=== PATIENT | male | born 1940 | race Caucasian/White ===

== ENCOUNTER → 2017-01-06 | Outpatient (CLI) | payer OTHER ==
[2016-02-10 11:28] VITALS: BP 158/69
[2017-01-06 10:25] LABS: BASOPHILS # (AUTO) 0.1 X10^3/uL (0.0-0.1); BASOPHILS % (AUTO) 0.9 % (0.2-1.0); EOSINOPHILS # (AUTO) 0.1 x10^3/uL (0.0-0.2); EOSINOPHILS % (AUTO) 1.1 % (0.9-2.9); LYMPHOCYTES # (AUTO) 1.9 X10^3/uL (1.3-2.9); MEAN CORPUSCULAR HEMOGLOBIN 31.1 pg (27.0-34.0); MEAN CORPUSCULAR HGB CONC 34.9 g/dL (33.0-35.0); MEAN CORPUSCULAR VOLUME 89.3 fL (80.0-100.0); MEAN PLATELET VOLUME 8.5 fL (7.4-11.0); MONOCYTES # (AUTO) 0.5 x10^3/uL (0.3-0.8); MONOCYTES % (AUTO) 7.6 % (0.0-13.0); NEUTROPHILS % (AUTO) 61.4 % (42.0-75.0); PLATELET COUNT 175 X10^3/uL (150.0-450.0); RED BLOOD COUNT 6.49 X10^6/uL (4.7-6.0); RED CELL DISTRIBUTION WIDTH 15.2 % (11.6-16.5); WHITE BLOOD COUNT 6.4 X10^3/uL (3.6-10.0)
[2017-01-06 10:35] LABS: ALANINE AMINOTRANSFERASE 33 Units/L (12-78); ALBUMIN 3.8 g/dL (3.4-5.0); ALKALINE PHOSPHATASE 56 Units/L (46-116); ASPARTATE AMINO TRANSFERASE 26 Units/L (15-37); BLOOD UREA NITROGEN 21 mg/dL (7-18); CALCIUM 9.3 mg/dL (8.5-10.1); CHLORIDE 103 mmol/L (98-107); CHOL/HDL RATIO 4.3 (0.0-5.0); CHOLESTEROL 151 mg/dL (0-200); CREATININE 1.64 mg/dL (0.70-1.30); HDL CHOLESTEROL 35 mg/dL (40-60); SODIUM 139 mmol/L (136-145); TOTAL PROTEIN 7.2 g/dL (6.4-8.2); TRIGLYCERIDES 194 mg/dL (0-150); eGFR BLACK RACES 53 (>60); eGFR NON BLACK RACES 44 (>60)
[2017-01-06 10:53] LABS: HEMOGLOBIN 20.2 g/dL (13.5-18.0)
[2017-01-06 10:54] LABS: HEMATOCRIT 57.9 % (42.0-54.0)
[2017-01-06 11:39] LABS: HEMOGLOBIN 20.1 g/dL (13.5-18.0)
[2017-01-06 11:40] LABS: HEMATOCRIT 57.6 % (42.0-54.0)
[2017-01-06 11:56] LABS: PLATELET MORPHOLOGY COMMENT NORMAL (NORMAL)
== END | disposition home or self-care (01) | DRG 645 ==
LOC: LAB 09:57
PROVIDERS: ATTEND Obstetrics & Gynecology Obstetrics
DX: E29.1 Testicular hypofunction (principal); I10 Essential (primary) hypertension; R79.89 Other specified abnormal findings of blood chemistry
CPT/HCPCS: 36415; 80053; 80061; 82670; 84403; 85014; 85018; 85025; 99195

== ENCOUNTER 2017-03-31 09:27 | Emergency (ER) | payer OTHER ==
[2017-03-31 09:35] VITALS: BP 161/87; BMI 36.9
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
--- NOTE | 2017-03-31 10:36 | RAD ---
Examination: Right wrist, three views History: Fell Findings: No acute fracture or dislocation identified. There is a surgical screw-plate fixation devic e applied to the distal radius. There is mild degenerative narrowing of the radiocarpal joint. No bon e destruction or pathologic calcification is identified. Impression: No acute injury identified. Degenerative and postsurgical findings. Reported By:
== END 2017-03-31 11:00 | disposition home or self-care (01) ==
LOC: ER 09:42
DX: S60.211A Contusion of right wrist, initial encounter (principal); S01.312A Laceration without foreign body of left ear, initial encounter; W10.9XXA Fall (on) (from) unspecified stairs and steps, initial encounter; Y92.512 Supermarket, store or market as the place of occurrence of the external cause
CPT/HCPCS: 73100; 99282

== ENCOUNTER 2017-04-02 17:01 | Emergency (ER) | payer OTHER ==
[2017-04-02 17:09] VITALS: BMI 37.4
[2017-04-02] MEDS ORDERED: ADACEL TDaP IM ONE ×2 (17:40→17:52)
[2017-04-02] MEDS ORDERED: ZOFRAN INJ 4 MG VIAL IVP ONE (17:41)
[2017-04-02] MEDS ORDERED: PROTONIX INJ 40 MG VIAL IVP ONE (17:41)
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
[2017-04-02] MEDS: NS 1000 ML 1,000 ML IV ONE ×2 (17:48→19:25)
[2017-04-02] MEDS ORDERED: ZOFRAN INJ 4 MG VIAL ONE (17:52)
[2017-04-02] MEDS ORDERED: PROTONIX INJ 40 MG VIAL ONE (17:52)
[2017-04-02] MEDS ORDERED: NS 1000 ML 1,000 ML ONE ×3 (17:52→20:27)
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
[2017-04-02 19:51] LABS: BASOPHILS # (AUTO) 0.1 X10^3/uL (0.0-0.1); BASOPHILS % (AUTO) 0.4 % (0.2-1.0); EOSINOPHILS # (AUTO) 0.1 x10^3/uL (0.0-0.2); EOSINOPHILS % (AUTO) 0.3 % (0.9-2.9); HEMATOCRIT 43.9 % (42.0-54.0); LYMPHOCYTES # (AUTO) 1.7 X10^3/uL (1.3-2.9); LYMPHOCYTES % (AUTO) 7.9 % (21.0-51.0); MEAN CORPUSCULAR HGB CONC 34.1 g/dL (33.0-35.0); MEAN CORPUSCULAR VOLUME 87.9 fL (80.0-100.0); MEAN PLATELET VOLUME 8.4 fL (7.4-11.0); MONOCYTES # (AUTO) 1.5 x10^3/uL (0.3-0.8); MONOCYTES % (AUTO) 7.3 % (0.0-13.0); NEUTROPHILS # (AUTO) 17.8 x10^3/uL (2.2-4.8); NEUTROPHILS % (AUTO) 84.1 % (42.0-75.0); PLATELET COUNT 210 X10^3/uL (150.0-450.0); RED BLOOD COUNT 4.99 X10^6/uL (4.7-6.0); RED CELL DISTRIBUTION WIDTH 14.1 % (11.6-16.5); WHITE BLOOD COUNT 21.2 X10^3/uL (3.6-10.0)
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
[2017-04-02 20:00] LABS: ALBUMIN 2.8 g/dL (3.4-5.0); CALCIUM 7.4 mg/dL (8.5-10.1); CARBON DIOXIDE 17.8 mmol/L (21-32); COR CA(FOR HYPOALB) 8.4 mg/dL (8.5-10.1); CREATININE 1.8 mg/dL (0.70-1.30); TOTAL PROTEIN 5.4 g/dL (6.4-8.2)
[2017-04-02 20:05] LABS: BAND NEUTROPHILS % 11 % (0-10)
[2017-04-02 20:06] LABS: PLATELET MORPHOLOGY COMMENT NORMAL (NORMAL)
[2017-04-02 20:12] LABS: APPEARANCE,URINE HAZY (CLEAR); COLOR,URINE YELLOW (YELLOW); GLUCOSE, URINE NEGATIVE (NEGATIVE); KETONES,URINE NEGATIVE (NEGATIVE); PROTEIN,URINE 1+ (NEGATIVE)
[2017-04-02 20:13] LABS: BILIRUBIN,URINE NEGATIVE (NEGATIVE); BLOOD/HEMOGLOBIN,URINE 4+ (NEGATIVE); LEUKOCYTE ESTERASE ,URINE NEGATIVE (NEGATIVE); NITRITES,URINE NEGATIVE (NEGATIVE); UROBILINOGEN,URINE NORMAL (NORMAL)
[2017-04-02 20:17] LABS: RBC,URINE 15 - 25 /HPF (NEGATIVE)
[2017-04-02 20:18] LABS: AMORPHOUS SEDIMENT,UR 2+ /HPF (NEGATIVE); BACTERIA,URINE NEGATIVE /HPF (NEGATIVE); HYALINE CASTS, URINE RARE /LPF (NEGATIVE); MUCUS,URINE MODERATE /HPF (NEGATIVE); SQUAMOUS EPITHELIAL CELL,UR RARE /HPF (NEGATIVE)
[2017-04-02 20:58] VITALS: BP 140/50
== END 2017-04-02 20:56 | disposition hospice, inpatient (51) ==
LOC: ER 17:01
DX: S72.142A Displaced intertrochanteric fracture of left femur, initial encounter for closed fracture (principal); S42.033A Displaced fracture of lateral end of unspecified clavicle, initial encounter for closed fracture; S70.12XA Contusion of left thigh, initial encounter; I10 Essential (primary) hypertension; V89.2XXA Person injured in unspecified motor-vehicle accident, traffic, initial encounter
CPT/HCPCS: 36415; 51702; 71010; 73030; 73552; 74176; 80053; 81001; 82150; 83690; 85025; 96365; 96374; 96375; 99282; 99285; A4216; A4222; C9113; J2405

== ENCOUNTER → 2017-05-09 | Outpatient (CLI) | payer OTHER ==
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
== END | disposition home or self-care (01) ==
LOC: RAD 10:09
PROVIDERS: ATTEND Obstetrics & Gynecology Obstetrics
DX: S72.092D Other fracture of head and neck of left femur, subsequent encounter for closed fracture with routine healing (principal); X58.XXXD Exposure to other specified factors, subsequent encounter; Z98.890 Other specified postprocedural states
CPT/HCPCS: 73501

== ENCOUNTER → 2017-05-24 | Outpatient (CLI) | payer OTHER ==
--- NOTE | 2017-05-24 10:54 | VAS ---
History: Knot in the mid and distal left thigh Study: Doppler ultrasound of the deep veins of the left lower extremity Findings: There is good compression and augmentation and flow in the deep veins of the left lower ext remity. There is a deep to subcutaneous tissue left thigh fluid collection measuring 2.3 cm diameter and unce rtain will length from the midthigh to the distal thigh. Impression: 1. No evidence for deep venous thrombosis 2. Left thigh fluid collection that may represent hematoma status post left hip fracture Reported By:
== END ==
LOC: RAD 09:53
PROVIDERS: ATTEND Obstetrics & Gynecology Obstetrics
DX: R22.42 Localized swelling, mass and lump, left lower limb (principal)
CPT/HCPCS: 93971

== ENCOUNTER 2017-07-17 10:54 | Observation (INO) | payer OTHER ==
[2017-07-17 11:10] VITALS: BMI 36.2
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
[2017-07-17 11:45] LABS: BASOPHILS # (AUTO) 0.1 X10^3/uL (0.0-0.1); BASOPHILS % (AUTO) 1.4 % (0.2-1.0); EOSINOPHILS # (AUTO) 0.1 x10^3/uL (0.0-0.2); HEMATOCRIT 45.3 % (42.0-54.0); HEMOGLOBIN 15.7 g/dL (13.5-18.0); LYMPHOCYTES # (AUTO) 2.2 X10^3/uL (1.3-2.9); LYMPHOCYTES % (AUTO) 35.6 % (21.0-51.0); MEAN CORPUSCULAR HEMOGLOBIN 29.5 pg (27.0-34.0); MEAN CORPUSCULAR HGB CONC 34.6 g/dL (33.0-35.0); MEAN CORPUSCULAR VOLUME 85.1 fL (80.0-100.0); MEAN PLATELET VOLUME 7.6 fL (7.4-11.0); MONOCYTES # (AUTO) 0.4 x10^3/uL (0.3-0.8); MONOCYTES % (AUTO) 6.5 % (0.0-13.0); NEUTROPHILS # (AUTO) 3.3 x10^3/uL (2.2-4.8); NEUTROPHILS % (AUTO) 54.5 % (42.0-75.0); PLATELET COUNT 245 X10^3/uL (150.0-450.0); RED BLOOD COUNT 5.32 X10^6/uL (4.7-6.0); RED CELL DISTRIBUTION WIDTH 14.9 % (11.6-16.5); WHITE BLOOD COUNT 6.1 X10^3/uL (3.6-10.0)
[2017-07-17 12:02] LABS: BLOOD UREA NITROGEN 25 mg/dL (7-18); CALCIUM 8.3 mg/dL (8.5-10.1); CARBON DIOXIDE 30.5 mmol/L (21-32); CHLORIDE 103 mmol/L (98-107); CREATININE 1.54 mg/dL (0.70-1.30); SODIUM 141 mmol/L (136-145); TROPONIN I < 0.02 ng/mL (0-1.5); eGFR BLACK RACES 57 (>60); eGFR NON BLACK RACES 47 (>60)
[2017-07-17 12:06] LABS: ALANINE AMINOTRANSFERASE 24 Units/L (12-78); ALBUMIN 3.8 g/dL (3.4-5.0); ALKALINE PHOSPHATASE 103 Units/L (46-116); ASPARTATE AMINO TRANSFERASE 16 Units/L (15-37); CKMB % 3.1 % (<4); CREATINE KINASE 67 Units/L (39-308); CREATINE KINASE MB 2.1 ng/mL (0-4.0); TOTAL PROTEIN 7.7 g/dL (6.4-8.2)
--- NOTE | 2017-07-17 12:09 | CT ---
CT brain without contrast Indication: Right-sided weakness Comparison: 02/10/2016 Technique: Multiple axial images of the brain were obtained from the skull base to the vertex without administra tion of IV contrast. Findings: There is no change in generalized cerebral atrophy with bilateral periventricular and deep white aldo er hypoattenuation. No acute intraparenchymal hemorrhage or mass can be identified. No extra-axial fluid collections are seen. No alteration in the attenuation of the brain parenchyma can be identified to suggest acute o r subacute ischemic change. The ventricular system is symmetric and nondilated. The extracranial st ructures are grossly unremarkable. IMPRESSION: 1. No acute intracranial hemorrhage. 2. Bilateral periventricular deep white matter hypoattenuation along with generalized cerebral atroph y likely represents sequela of chronic microvascular ischemic disease; however, if patient has persis tent acute neurologic deficits correlation brain MRI would be indicated for exclusion of acute or sub acute ischemia. Reported By:
--- NOTE | 2017-07-17 12:56 | RAD ---
HISTORY: Right-sided weakness Study: Chest AP portable Comparison: 04/02/2017 Findings: The heart is enlarged. No congestive heart failure is noted. No acute alveolar infiltrates or pleural effusions are identified. The bony thorax is unremarkable. IMPRESSION: Cardiomegaly without congestive heart failure Lungs clear Reported By:
[2017-07-17] MEDS ORDERED: BUTT CREAM (COMPOUND) TOP PRN (14:07)
[2017-07-17] MEDS ORDERED: NS 1000 ML 1,000 ML IV SCH (15:00)
[2017-07-17] MEDS: SOLU-Medrol 125 MG VIAL IVP SCH ×2 (17:38→20:59)
[2017-07-17 20:29] LABS: BILIRUBIN,URINE NEGATIVE (NEGATIVE); BLOOD/HEMOGLOBIN,URINE 1+ (NEGATIVE); GLUCOSE, URINE NEGATIVE (NEGATIVE); KETONES,URINE NEGATIVE (NEGATIVE); LEUKOCYTE ESTERASE ,URINE 2+ (NEGATIVE); NITRITES,URINE NEGATIVE (NEGATIVE); PROTEIN,URINE 1+ (NEGATIVE); UROBILINOGEN,URINE NORMAL (NORMAL)
[2017-07-17 20:38] LABS: APPEARANCE,URINE CLEAR (CLEAR); COLOR,URINE YELLOW (YELLOW)
[2017-07-17 20:39] LABS: AMORPHOUS SEDIMENT,UR 1+ /HPF (NEGATIVE); BACTERIA,URINE NEGATIVE /HPF (NEGATIVE); MUCUS,URINE MODERATE /HPF (NEGATIVE); SQUAMOUS EPITHELIAL CELL,UR MODERATE /HPF (NEGATIVE)
[2017-07-17] MEDS: NAPROSYN PO SCH (20:57)
[2017-07-17] MEDS ORDERED: PULMICORT NEB TX 0.5 MG NEB ONE (20:58)
[2017-07-17] MEDS: COLACE CAP 100 MG PO SCH (20:58)
[2017-07-17] MEDS: TOPROL XL PO SCH (20:58)
[2017-07-17] MEDS: PEPCID TAB 20 MG PO SCH (20:59)
[2017-07-17] MEDS ORDERED: KLONOPIN TAB 0.5 MG PO SCH (21:00)
[2017-07-17] MEDS: PULMICORT NEB TX 0.5 MG NEB SCH (21:03)
[2017-07-18] MEDS: SOLU-Medrol 125 MG VIAL IVP SCH (06:00)
[2017-07-18 06:29] LABS: BASOPHILS % (AUTO) 0.2 % (0.2-1.0); HEMATOCRIT 46.9 % (42.0-54.0); HEMOGLOBIN 16.1 g/dL (13.5-18.0); LYMPHOCYTES # (AUTO) 1.3 X10^3/uL (1.3-2.9); LYMPHOCYTES % (AUTO) 27.4 % (21.0-51.0); MEAN CORPUSCULAR HEMOGLOBIN 29.3 pg (27.0-34.0); MEAN CORPUSCULAR HGB CONC 34.4 g/dL (33.0-35.0); MEAN CORPUSCULAR VOLUME 85.3 fL (80.0-100.0); MEAN PLATELET VOLUME 8.3 fL (7.4-11.0); MONOCYTES # (AUTO) 0 x10^3/uL (0.3-0.8); MONOCYTES % (AUTO) 0.5 % (0.0-13.0); NEUTROPHILS # (AUTO) 3.5 x10^3/uL (2.2-4.8); NEUTROPHILS % (AUTO) 71.9 % (42.0-75.0); PLATELET COUNT 274 X10^3/uL (150.0-450.0); RED CELL DISTRIBUTION WIDTH 14.7 % (11.6-16.5); WHITE BLOOD COUNT 4.8 X10^3/uL (3.6-10.0)
[2017-07-18 06:35] LABS: ALANINE AMINOTRANSFERASE 24 Units/L (12-78); ALBUMIN 3.7 g/dL (3.4-5.0); ALKALINE PHOSPHATASE 104 Units/L (46-116); ASPARTATE AMINO TRANSFERASE 17 Units/L (15-37); BLOOD UREA NITROGEN 25 mg/dL (7-18); CARBON DIOXIDE 27.4 mmol/L (21-32); CHLORIDE 102 mmol/L (98-107); COR NA(FOR HYPERGLY) 142 mmol/L (136-145); CREATININE 1.42 mg/dL (0.70-1.30); MAGNESIUM 1.7 mg/dL (1.7-2.9); SODIUM 141 mmol/L (136-145); TOTAL PROTEIN 7.9 g/dL (6.4-8.2); eGFR BLACK RACES > 60 (>60); eGFR NON BLACK RACES 52 (>60)
[2017-07-18] MEDS: PULMICORT NEB TX 0.5 MG NEB SCH (08:24)
[2017-07-18] MEDS ORDERED: PULMICORT NEB TX 0.5 MG NEB SCH (09:00)
[2017-07-18] MEDS ORDERED: MIRALAX POWDER (1 DOSE 17GM) PO SCH (09:00)
[2017-07-18] MEDS ORDERED: HEMOCYTE-PLUS PO SCH (09:00)
[2017-07-18] MEDS ORDERED: HYDROCHLOROTHIAZIDE 25 MG TAB PO SCH (09:00)
[2017-07-18] MEDS ORDERED: DIOVAN TAB 80 MG PO SCH (09:00)
[2017-07-18] MEDS ORDERED: FERROUS SULFATE 325 MG PO SCH (09:00)
[2017-07-18] MEDS ORDERED: BIOTIN PO SCH (09:00)
[2017-07-18] MEDS ORDERED: B COMPLEX PO SCH (09:00)
[2017-07-18] MEDS ORDERED: VITAMIN C PO SCH (09:00)
[2017-07-18] MEDS ORDERED: FOLIC ACI PO SCH (09:00)
[2017-07-18] MEDS ORDERED: FLOMAX PO SCH (09:00)
[2017-07-18] MEDS ORDERED: COENZYME Q10 100 MG PO SCH (09:00)
[2017-07-18] MEDS ORDERED: FLONASE NASAL SPRAY ENOSTRIL SCH (09:00)
[2017-07-18] MEDS ORDERED: VALIUM PO ONE (09:03)
[2017-07-18] MEDS: TOPROL XL PO SCH (09:50)
[2017-07-18] MEDS: NAPROSYN PO SCH (09:52)
[2017-07-18] MEDS: COLACE CAP 100 MG PO SCH (09:52)
[2017-07-18] MEDS: PEPCID TAB 20 MG PO SCH (09:53)
[2017-07-18] MEDS: VALTREX TAB 1 GM PO SCH ×2 (09:59→14:57)
[2017-07-18] MEDS ORDERED: PREDNISONE TAB 20 MG PO SCH (10:00)
[2017-07-18] MEDS ORDERED: VALIUM ONE (11:45)
[2017-07-18] MEDS: SYMBICORT INH 160/4.5 mcg IN SCH (12:09)
--- NOTE | 2017-07-18 14:16 | MRI ---
HISTORY: Right-sided weakness. Study: MRI brain without contrast. Comparison: CT head dated July 17, 2017. Technique: Multiplanar multi-sequence MRI of the brain was obtained utilizing standard departmental p rotocol. Sagittal and axial T1 weighted images were obtained. Axial T2 and flair weighted images we re performed as well. Axial diffusion weighted and ADC trace mapping was performed. Findings: Age-related cortical atrophy and chronic small vessel ischemic changes. The midline structures appear unremarkable. The evaluation of the brain parenchyma demonstrates no abnormal signal characteristic s to suggest intraparenchymal mass or hemorrhage. No extra-axial fluid collections are observed. Th e ventricular system appears symmetric and nondilated. The CP angle is normal in its appearance wit hout brainstem mass or evidence for acoustic neuroma. The flow voids on both T1 and T2 weighted imag ing appear unremarkable. Evaluation of the diffusion weighted imaging does not demonstrate abnormal signal characteristics to suggest acute ischemic change. The extracranial structures are unremarkabl e. IMPRESSION: Unremarkable MRI of the brain without contrast. Reported By:
--- NOTE | 2017-07-18 14:50 | VAS ---
History: Right facial weakness Study: Carotid duplex ultrasound Comparison: None Findings: Images show diffuse intimal thickening without significant plaque formation. Peak systolic velocity in the right common carotid artery is 114.6 centimeters/second compared to 36 centimeters/second in the right internal carotid artery for ratio of 0.3. On the left the peak systolic velocity in the common carotid artery is 111 centimeters/second compare d to 53 centimeters/second in the left internal carotid artery for ratio of 0.5. The vertebral artery's were not visualized. Impression: Negative, no evidence for carotid stenosis Reported By:
[2017-07-18] MEDS ORDERED: TYLENOL 500 MG TAB EXTRA STRENGTH PO PRN (14:52)
[2017-07-18 17:08] VITALS: BP 147/73
[2017-07-18] MEDS ORDERED: VALTREX TAB 1 GM PO ONE (20:32)
[2017-07-19] MEDS ORDERED: VALTREX TAB 1 GM PO ONE (06:53)
== END 2017-07-18 17:00 | disposition home or self-care (01) ==
LOC: ER 11:23 → MED/SURG 13:15
PROVIDERS: ADMIT Internal Medicine; ATTEND Obstetrics & Gynecology Obstetrics
DX: R29.810 Facial weakness (principal); I10 Essential (primary) hypertension; K21.9 Gastro-esophageal reflux disease without esophagitis; F41.8 Other specified anxiety disorders; I51.7 Cardiomegaly; R26.89 Other abnormalities of gait and mobility; R47.1 Dysarthria and anarthria; R94.4 Abnormal results of kidney function studies; Z79.899 Other long term (current) drug therapy
CPT/HCPCS: 36415; 70450; 70551; 71045; 80053; 81001; 82550; 82553; 83735; 84484; 85025; 93005; 93010; 93880; 94640; 94760; 99284; A4216; A4222; G0378; J2930; J7506; J7626

== ENCOUNTER 2020-01-11 02:01 | Observation (INO) ==
--- NOTE | 2020-01-11 02:49 | DR.UPM ---
HPI Time Seen Time Seen by Provider: 01/11/20 02:24 Complaint Chief Complaint Doctors Comments: patient complaint of spilling urine on himself when trying to urinate in urine bottle. Patient broke his clavicle yesterday and cannot get up easily to go to bathroom . Reviewed Nurses Notes Reviewed: Yes Source History Provided: Patient Mode of Arrival Mode of Arrival: EMS Duration Duration: Constant How lon Duration: Hours Context Onset: Following trauma History of: None Severity Pain: None Inability to Void: None Other History Other History: recent left clavicle fracture, arthritis PMH PMH Past Medical History: Anxiety, Asthma, GERD and Hypertension Past Surgical History: Yes Surgical History: Joint Replacement and Other Family History Family Medical History: Cancer, [place], Coronary Artery Disease, Heart Failure and Hypertension Social History Do you use any recreational Drugs:: No ROS Review of Systems Constitutional: Weakness and Other (decreased mobility) Eyes: No Symptoms Reported ENTM: No Symptoms Reported Respiratoy: No Symptoms Reported Cardiovascular: No Symptoms Reported Gastrointestinal/Abdominal: No Symptoms Reported Genitourinary: No Symptoms Reported Neurological: No Symptoms Reported Musculoskeletal: Joint Pain (chronic, acute left clavicle pain from fracture) Integumentary: No Symptoms Reported Hematologic/Lymphatic: No Symptoms Reported Endocrine: No Symptoms Reported Psychiatric: Depression All Other Systems: Reviewed and Negative PE Vital Signs Vitals: Temperature 98.0 F Pulse Rate 98 Respiratory Rate 20 Blood Pressure [Right Arm] 152/72 Blood Pressure 140/66 O2 Sat by Pulse Oximetry 95 COURSE Consultation Called: 03:33 Call Returned: 03:33 Consultation Comments: case discussed with Dr. MANNING will place in Observation for evaluation of meterman care ROR Labs Reviewed Result Diagrams: 01/11/20 03:00 01/11/20 03:00 Laboratory: WBC 9.6 X10^3/uL (3.6-10.0) 01/11/20 03:00 RBC 4.68 X10^6/uL (4.7-6.0) L 01/11/20 03:00 Hgb 14.1 g/dL (13.5-18.0) 01/11/20 03:00 Hct 40.9 % (42.0-54.0) L 01/11/20 03:00 MCV 87.5 fL (80.0-100.0) 01/11/20 03:00 MCH 30.1 pg (27.0-34.0) 01/11/20 03:00 MCHC 34.4 g/dL (33.0-35.0) 01/11/20 03:00 RDW 14.1 % (11.6-16.5) 01/11/20 03:00 Plt Count 269 X10^3/uL (150.0-450.0) 01/11/20 03:00 MPV 7.8 fL (7.4-11.0) 01/11/20 03:00 Neut % (Auto) 74.5 % (42.0-75.0) 01/11/20 03:00 Lymph % (Auto) 14.6 % (21.0-51.0) L 01/11/20 03:00 [place] % (Auto) 9.5 % (0.0-13.0) 01/11/20 03:00 Eos % (Auto) 0.7 % (0.9-2.9) L 01/11/20 03:00 Baso % (Auto) 0.7 % (0.2-1.0) 01/11/20 03:00 Neut # (Auto) 7.2 x10^3/uL (2.2-4.8) H 01/11/20 03:00 Lymph # (Auto) 1.4 X10^3/uL (1.3-2.9) 01/11/20 03:00 [place] # (Auto) 0.9 x10^3/uL (0.3-0.8) H 01/11/20 03:00 Eos # (Auto) 0.1 x10^3/uL (0.0-0.2) 01/11/20 03:00 Baso # (Auto) 0.1 X10^3/uL (0.0-0.1) 01/11/20 03:00 Absolute Nucleated RBC 0.0 /100WBC 01/11/20 03:00 Sodium 137 mmol/L (136-145) 01/11/20 03:00 Corrected Sodium 137 mmol/L (136-145) 01/11/20 03:00 Potassium 3.6 mmol/L (3.5-5.1) 01/11/20 03:00 Chloride 101 mmol/L (98-107) 01/11/20 03:00 Carbon Dioxide 27.3 mmol/L (21-32) 01/11/20 03:00 BUN 29 mg/dL (7-18) H 01/11/20 03:00 Creatinine 2.02 mg/dL (0.70-1.30) H 01/11/20 03:00 Est GFR (MDRD) Af Amer 41 (>60) L 01/11/20 03:00 Est GFR (MDRD) Non-Af 34 (>60) L 01/11/20 03:00 Glucose 120 mg/dL (65-99) H 01/11/20 03:00 Calcium 9.1 mg/dL (8.5-10.1) 01/11/20 03:00 Corrected Calcium TNP 01/11/20 03:00 Total Bilirubin 0.80 mg/dL (0.2-1.0) 01/11/20 03:00 AST 16 Units/L (15-37) 01/11/20 03:00 ALT 20 Units/L (12-78) 01/11/20 03:00 Alkaline Phosphatase 108 Units/L (46-116) 01/11/20 03:00 Total Protein 7.3 g/dL (6.4-8.2) 01/11/20 03:00 Albumin 3.5 g/dL (3.4-5.0) 01/11/20 03:00 Globulin 3.8 g/dL (2.5-4.5) 01/11/20 03:00 Albumin/Globulin Ratio 0.9 Ratio (1.1-2.1) L 01/11/20 03:00 Specimen Type Random urine 01/11/20 02:56 Urine Color Yellow (YELLOW) 01/11/20 02:56 Urine Appearance Clear (CLEAR) 01/11/20 02:56 Urine pH 5.0 (5.0 - 8.0) 01/11/20 02:56 Ur Specific [place] 1.020 (1.000-1.030) 01/11/20 02:56 Urine Protein Negative (NEGATIVE) 01/11/20 02:56 Urine Glucose (UA) Negative (NEGATIVE) 01/11/20 02:56 Urine Ketones Negative (NEGATIVE) 01/11/20 02:56 Urine Occult Blood Negative (NEGATIVE) 01/11/20 02:56 Urine Nitrite Negative (NEGATIVE) 01/11/20 02:56 Urine Bilirubin Negative (NEGATIVE) 01/11/20 02:56 Urine Urobilinogen Normal (NORMAL) 01/11/20 02:56 Ur Leukocyte Esterase 1+ (NEGATIVE) 01/11/20 02:56 Urine RBC 0-2 /HPF (0-3) 01/11/20 02:56 Urine WBC 0-2 /HPF (0-5) 01/11/20 02:56 Ur Squamous Epith Cells Rare /HPF (NEGATIVE) 01/11/20 02:56 Urine Bacteria Trace /HPF (NEGATIVE) 01/11/20 02:56 Ur Culture Indicated? No/not indicated 01/11/20 02:56 Opioid Opioid Risk Tool Age (Puneet box if 16-45): No History of Preadolescent Sexual Abuse: No Total: 0 Total Score Risk Category: Low Risk Copyright: Nikolay DAVISON predicting aberrant behaviors
[2020-01-11 03:04] LABS: BILIRUBIN,URINE NEGATIVE (NEGATIVE); BLOOD/HEMOGLOBIN,URINE NEGATIVE (NEGATIVE); GLUCOSE, URINE NEGATIVE (NEGATIVE); KETONES,URINE NEGATIVE (NEGATIVE); LEUKOCYTE ESTERASE ,URINE 1+ (NEGATIVE); NITRITES,URINE NEGATIVE (NEGATIVE); PROTEIN,URINE NEGATIVE (NEGATIVE); UROBILINOGEN,URINE NORMAL (NORMAL)
[2020-01-11 03:10] LABS: APPEARANCE,URINE CLEAR (CLEAR); BACTERIA,URINE TRACE /HPF (NEGATIVE); COLOR,URINE YELLOW (YELLOW); RBC,URINE 0-2 /HPF (0-3); SQUAMOUS EPITHELIAL CELL,UR RARE /HPF (NEGATIVE)
[2020-01-11 03:16] LABS: BASOPHILS # (AUTO) 0.1 X10^3/uL (0.0-0.1); BASOPHILS % (AUTO) 0.7 % (0.2-1.0); EOSINOPHILS # (AUTO) 0.1 x10^3/uL (0.0-0.2); EOSINOPHILS % (AUTO) 0.7 % (0.9-2.9); HEMATOCRIT 40.9 % (42.0-54.0); HEMOGLOBIN 14.1 g/dL (13.5-18.0); LYMPHOCYTES # (AUTO) 1.4 X10^3/uL (1.3-2.9); LYMPHOCYTES % (AUTO) 14.6 % (21.0-51.0); MEAN CORPUSCULAR HEMOGLOBIN 30.1 pg (27.0-34.0); MEAN CORPUSCULAR HGB CONC 34.4 g/dL (33.0-35.0); MEAN CORPUSCULAR VOLUME 87.5 fL (80.0-100.0); MEAN PLATELET VOLUME 7.8 fL (7.4-11.0); MONOCYTES # (AUTO) 0.9 x10^3/uL (0.3-0.8); MONOCYTES % (AUTO) 9.5 % (0.0-13.0); NEUTROPHILS # (AUTO) 7.2 x10^3/uL (2.2-4.8); NEUTROPHILS % (AUTO) 74.5 % (42.0-75.0); PLATELET COUNT 269 X10^3/uL (150.0-450.0); RED BLOOD COUNT 4.68 X10^6/uL (4.7-6.0); RED CELL DISTRIBUTION WIDTH 14.1 % (11.6-16.5); WHITE BLOOD COUNT 9.6 X10^3/uL (3.6-10.0)
[2020-01-11 03:24] LABS: ALANINE AMINOTRANSFERASE 20 Units/L (12-78); ALBUMIN 3.5 g/dL (3.4-5.0); ALKALINE PHOSPHATASE 108 Units/L (46-116); ASPARTATE AMINO TRANSFERASE 16 Units/L (15-37); BLOOD UREA NITROGEN 29 mg/dL (7-18); CALCIUM 9.1 mg/dL (8.5-10.1); CARBON DIOXIDE 27.3 mmol/L (21-32); CHLORIDE 101 mmol/L (98-107); COR NA(FOR HYPERGLY) 137 mmol/L (136-145); CREATININE 2.02 mg/dL (0.70-1.30); SODIUM 137 mmol/L (136-145); TOTAL PROTEIN 7.3 g/dL (6.4-8.2); eGFR NON BLACK RACES 34 (>60)
[2020-01-11] MEDS ORDERED: TORADOL 30 MG VIAL IVP PRN ×2 (03:42→07:00)
[2020-01-11] MEDS ORDERED: NORCO 5/325 MG TAB PO PRN (03:43)
[2020-01-11] MEDS ORDERED: NS 1000 ML 1,000 ML ONE (03:47)
[2020-01-11] MEDS ORDERED: TORADOL 30 MG VIAL ONE (03:47)
[2020-01-11] MEDS ORDERED: NS 1000 ML 1,000 ML IV SCH (04:00)
[2020-01-11 06:00] VITALS: BMI 33.8
[2020-01-11] MEDS ORDERED: ULTRAM PO PRN (08:01)
[2020-01-11] MEDS ORDERED: KLONOPIN TAB 0.5 MG PO PRN (08:01)
[2020-01-11] MEDS ORDERED: LEXAPRO ONE (08:40)
[2020-01-11] MEDS ORDERED: VITAMIN C PO SCH (09:00)
[2020-01-11] MEDS ORDERED: CARDIZEM CD 120 MG 24-HR PO SCH (09:00)
[2020-01-11] MEDS ORDERED: PATIENT'S HOME MEDICATION (Budesonide-Formoterol 2 PUFF) INH SCH (09:00)
[2020-01-11] MEDS ORDERED: PriLOSEC PO SCH (09:00)
[2020-01-11] MEDS ORDERED: PULMICORT NEB TX 0.5 MG NEB SCH (09:00)
[2020-01-11] MEDS ORDERED: ARIMIDEX PO SCH (09:00)
[2020-01-11] MEDS ORDERED: HYDROCHLOROTHIAZIDE 12.5 MG CAP PO SCH (09:00)
[2020-01-11] MEDS ORDERED: LEXAPRO PO SCH (09:00)
[2020-01-11] MEDS ORDERED: PEPCID TAB 20 MG PO SCH (09:00)
[2020-01-11] MEDS ORDERED: DIOVAN TAB 160 MG PO SCH (09:00)
[2020-01-11] MEDS ORDERED: PATIENT'S HOME MEDICATION (Valsartan-Hydrochlorothiazide 1 TAB) PO SCH (09:00)
[2020-01-11] MEDS ORDERED: COQ10 200 MG PO SCH (09:00)
[2020-01-11] MEDS: PROVENTIL NEB TX 0.083% 2.5MG/ 3ML NEB SCH ×2 (09:10→13:20)
[2020-01-11] MEDS ORDERED: LOVENOX INJ 30 MG SYR SC SCH (11:00)
--- NOTE | 2020-01-11 11:14 | RAD ---
HISTORYELEVATED KAPPA AND LAMDA CHAINESTUDYSKULL SERIESCOMPARISONNoneTECHNIQUEThree view skull seriesFINDINGSPosterior fusion of the cervical spine noted. There is a single lucency noted in right parietal bone. Lucency measures approximately 6 mm. Paranasal sinuses appear clear.IMPRESSIONSingle nonspecific lucency in the left parietal bone. This was present on CT brain from 05/29/2019 on image 25 series 7.Electronically signed by: Art Alejandro (Jan 11, 2020 11:14:00)
[2020-01-11 13:01] VITALS: BP 129/60
[2020-01-11] MEDS ORDERED: FLOMAX PO SCH (19:00)
== END 2020-01-11 15:05 ==
LOC: ER 02:02 → MED/SURG 02:02
PROVIDERS: ADMIT Obstetrics & Gynecology Obstetrics; ATTEND Obstetrics & Gynecology Obstetrics
DX: W18.39XA Other fall on same level, initial encounter; Z79.899 Other long term (current) drug therapy; F41.8 Other specified anxiety disorders; M48.02 Spinal stenosis, cervical region; R26.89 Other abnormalities of gait and mobility; S42.002A Fracture of unspecified part of left clavicle, initial encounter for closed fracture; R94.4 Abnormal results of kidney function studies; N28.9 Disorder of kidney and ureter, unspecified; R52 Pain, unspecified; I10 Essential (primary) hypertension; K21.9 Gastro-esophageal reflux disease without esophagitis

== ENCOUNTER 2021-04-03 15:40 | Inpatient (IN) ==
--- NOTE | 2021-04-03 17:27 | DR.AMS ---
HPI Time Seen Time Seen by Provider: 04/03/21 16:55 PCP Primary Care Physician: NIGEL MOREJON Complaint Cheif Complaint Doctors Comments: PATIENT WAS SENT FROM [place] BY PCP DR MANNING FOR ALTERED MENTAL STATUS FOR 1.5 WEEKS AND DECREASED PO INTAKE. Chief Complaint:: PT FROM [facility] FOR EVAL PER NIGEL MOREJON PT NOTED TO BE HAVING SOME AMS FOR 1.5 WEEK, AND BLOOD WORK COLLECTED AND WBC 22.7, AND BUN AND CREATINE ELEVATED ,BR COVID-19 Coronavirus risk:travel/contact w/high risk person: No Has patient experienced Coronavirus symptoms: No Source History Provided: Patient Mode of Arrival Mode of Arrival: Stretcher Timing Onset of Chief Complaint: 03/30/21 PMH PMH Past Medical History: Yes Past Medical History: Anxiety, Asthma, GERD and Hypertension Past Surgical History: Yes Surgical History: Joint Replacement and Other Family History History of Family Medical Conditions: Yes Family Medical History: Cancer, [place], Coronary Artery Disease, Heart Failure and Hypertension Social History Does patient currently use any type of tobacco product: No Have you used tobacco products in the last 12 months: No Type of Tobacco Use: None Does any household member use tobacco: No Alcohol Use: None Do you use any recreational Drugs:: No Lives Where: Longterm Travel Risk Coronavirus risk:travel/contact w/high risk person: No Has patient experienced Coronavirus symptoms: No Infectious screening In the last 2 months have you had wt loss of >10#?: NO Have you had fever, night sweats or hemotysis?: No Have you traveled outside the country in the last 6 months?: No Isolation: Standard ROS Review of Systems Constitutional: Weakness (WEAKNESS FOR ONE WEEK) Eyes: No Symptoms Reported ENTM: No Symptoms Reported Respiratoy: No Symptoms Reported Cardiovascular: No Symptoms Reported Gastrointestinal/Abdominal: No Symptoms Reported Genitourinary: No Symptoms Reported Neurological: No Symptoms Reported and Other (CHANGE IN MENTAL STATUS WITH DECREASED RESPONSIVENESS) Musculoskeletal: No Symptoms Reported Integumentary: No Symptoms Reported Hematologic/Lymphatic: No Symptoms Reported Endocrine: No Symptoms Reported Psychiatric: No Symptoms Reported All Other Systems: Reviewed and Negative PE Vitals Vital Signs: Temp Pulse Resp BP BP Pulse Ox 04/04/21 01:00 84 26 H 103/54 99 04/04/21 00:59 85 26 H 107/54 99 04/04/21 00:45 83 27 H 99 04/04/21 00:30 84 24 99 04/04/21 00:15 87 31 H 99 04/04/21 00:00 86 30 H 93/54 100 04/03/21 23:45 85 41 H 96/52 100 04/03/21 23:30 86 54 H 100 04/03/21 23:15 84 27 H 100 04/03/21 23:01 86 36 H 82/47 100 04/03/21 23:00 87 43 H 100 04/03/21 22:45 85 42 H 100 04/03/21 22:30 84 52 H 100 04/03/21 22:15 84 33 H 100 04/03/21 22:09 84 35 H 100 04/03/21 22:00 83 39 H 100 04/03/21 21:45 84 32 H 100 04/03/21 21:30 85 50 H 100 04/03/21 21:23 92 H 39 H 106/51 100 04/03/21 21:20 87 27 H 99 04/03/21 21:15 90 45 H 100 04/03/21 21:00 91 H 29 H 100 04/03/21 20:45 91 H 33 H 100 04/03/21 20:41 99.4 F 04/03/21 20:30 94 H 42 H 100 04/03/21 20:29 92 H 34 H 85/66 100 04/03/21 20:15 91 H 38 H 100 04/03/21 20:00 90 43 H 100 04/03/21 19:45 91 H 30 H 100 04/03/21 19:30 90 28 H 82 L 04/03/21 19:24 96 H 28 H 94/51 99 04/03/21 19:15 96 H 99 04/03/21 19:00 89 98 04/03/21 18:45 90 98 04/03/21 18:30 92 H 98 04/03/21 18:18 98 H 102/51 88 L 04/03/21 18:15 96 H 98 04/03/21 18:00 98 H 95 04/03/21 17:45 158 H 82 L 04/03/21 17:30 91 H 98 04/03/21 17:15 92 H 98 04/03/21 17:10 93 H 115/56 97 04/03/21 15:42 96.9 F L 88 24 119/70 99 01/11/20 12:00 129/60 General Limitations: Altered Mental Status (PATIENT DID ANSWER SIMPLE QUESTIONS) MDM Additional Information Obtained Findings: CHANGE IN MENTAL STATUS,UTI COURSE Treatment Treatment: patient was given 2 liter bolus on normal saline , rocephine 1gram iv . ROR Labs Reviewed Laboratory Results Reviewed?: Yes Result Diagrams: 04/03/21 17:50 04/03/21 17:50 Laboratory: WBC 23.8 X10^3/uL (3.6-10.0) H 04/03/21 17:50 RBC 4.66 X10^6/uL (4.7-6.0) L 04/03/21 17:50 Hgb 13.8 g/dL (13.5-18.0) 04/03/21 17:50 Hct 40.7 % (42.0-54.0) L 04/03/21 17:50 MCV 87.3 fL (80.0-100.0) 04/03/21 17:50 MCH 29.7 pg (27.0-34.0) 04/03/21 17:50 MCHC 34.0 g/dL (33.0-35.0) 04/03/21 17:50 RDW 13.6 % (11.6-16.5) 04/03/21 17:50 Plt Count 304 X10^3/uL (150.0-450.0) 04/03/21 17:50 Plt Count Comment Adequate (ADEQUATE) 04/03/21 17:50 MPV 8.8 fL (7.4-11.0) 04/03/21 17:50 Neut % (Auto) 88.0 % (42.0-75.0) H 04/03/21 17:50 Lymph % (Auto) 4.4 % (21.0-51.0) L 04/03/21 17:50 [place] % (Auto) 6.8 % (0.0-13.0) 04/03/21 17:50 Eos % (Auto) 0.4 % (0.9-2.9) L 04/03/21 17:50 Baso % (Auto) 0.4 % (0.2-1.0) 04/03/21 17:50 Neut # (Auto) 20.9 x10^3/uL (2.2-4.8) H 04/03/21 17:50 Lymph # (Auto) 1.1 X10^3/uL (1.3-2.9) L 04/03/21 17:50 [place] # (Auto) 1.6 x10^3/uL (0.3-0.8) H 04/03/21 17:50 Eos # (Auto) 0.1 x10^3/uL (0.0-0.2) 04/03/21 17:50 Baso # (Auto) 0.1 X10^3/uL (0.0-0.1) 04/03/21 17:50 Absolute Nucleated RBC 0.0 /100WBC 04/03/21 17:50 Total Counted 100 04/03/21 17:50 Neutrophils % (Manual) 91 % (39-76) H 04/03/21 17:50 Lymphocytes % (Manual) 3 % (13-43) L 04/03/21 17:50 Monocytes % (Manual) 6 % (4-9) 04/03/21 17:50 Toxic Granulation Present 04/03/21 17:50 Plt Morphology Comment Normal (NORMAL) 04/03/21 17:50 RBC Morphology Normal (NORMAL) 04/03/21 17:50 Sodium 141 mmol/L (136-145) 04/03/21 17:50 Corrected Sodium 142 mmol/L (136-145) 04/03/21 17:50 Potassium 4.3 mmol/L (3.5-5.1) 04/03/21 17:50 Chloride 99 mmol/L (98-107) 04/03/21 17:50 Carbon Dioxide 28.7 mmol/L (21-32) 04/03/21 17:50 BUN 77 mg/dL (7-18) H 04/03/21 17:50 Creatinine 4.09 mg/dL (0.70-1.30) H 04/03/21 17:50 Est GFR (MDRD) Af Amer 18 (>60) L 04/03/21 17:50 Est GFR (MDRD) Non-Af 15 (>60) L 04/03/21 17:50 Glucose 127 mg/dL (65-99) H 04/03/21 17:50 Lactic Acid 1.2 mmol/L (0.4-2.0) 04/03/21 20:50 Calcium 8.9 mg/dL (8.5-10.1) 04/03/21 17:50 Corrected Calcium 10.2 mg/dL (8.5-10.1) H 04/03/21 17:50 Total Bilirubin 0.40 mg/dL (0.2-1.0) 04/03/21 17:50 AST 17 Units/L (15-37) 04/03/21 17:50 ALT 22 Units/L (12-78) 04/03/21 17:50 Alkaline Phosphatase 76 Units/L (46-116) 04/03/21 17:50 B-Natriuretic Peptide 25.7 pg/mL (0-79) 04/03/21 17:50 Total Protein 7.1 g/dL (6.4-8.2) 04/03/21 17:50 Albumin 2.4 g/dL (3.4-5.0) L 04/03/21 17:50 Globulin 4.7 g/dL (2.5-4.5) H 04/03/21 17:50 Albumin/Globulin Ratio 0.5 Ratio (1.1-2.1) L 04/03/21 17:50 Specimen Type Catherized urine 04/03/21 18:18 Urine Color Dark yellow (YELLOW) 04/03/21 18:18 Urine Appearance Cloudy (CLEAR) 04/03/21 18:18 Urine pH 8.0 (5.0 - 8.0) 04/03/21 18:18 Ur Specific [place] 1.015 (1.000-1.030) 04/03/21 18:18 Urine Protein 3+ (NEGATIVE) 04/03/21 18:18 Urine Glucose (UA) Negative (NEGATIVE) 04/03/21 18:18 Urine Ketones Negative (NEGATIVE) 04/03/21 18:18 Urine Occult Blood 4+ (NEGATIVE) 04/03/21 18:18 Urine Nitrite Negative (NEGATIVE) 04/03/21 18:18 Urine Bilirubin Negative (NEGATIVE) 04/03/21 18:18 Urine Urobilinogen Normal (NORMAL) 04/03/21 18:18 Ur Leukocyte Esterase 1+ (NEGATIVE) 04/03/21 18:18 Urine RBC 5-10 /HPF (0-3) A 04/03/21 18:18 Urine WBC Tntc /HPF (0-5) A 04/03/21 18:18 Ur Squamous Epith Cells Negative /HPF (NEGATIVE) 04/03/21 18:18 Urine Bacteria 4+ /HPF (NEGATIVE) 04/03/21 18:18 Ur Culture Indicated? Yes/culture set up 04/03/21 18:18 Urine Opiates Screen Positive (NEG=<300) 04/03/21 18:18 Urine Methadone Screen Negative (NEG=<300) 04/03/21 18:18 Ur Barbiturates Screen Negative (NEG=<200) 04/03/21 18:18 Ur Phencyclidine Scrn Negative (NEG=<25) 04/03/21 18:18 Ur Amphetamines Screen Negative (NEG=<1000) 04/03/21 18:18 U Benzodiazepines Scrn Negative (NEG=<200) 04/03/21 18:18 Urine Cocaine Screen Negative (NEG=<300) 04/03/21 18:18 U Marijuana (THC) Screen Negative (NEG=<50) 04/03/21 18:18 SARS-CoV-2 (PCR) Negative (NEGATIVE) 04/03/21 20:55 Influenza Type A (PCR) Negative (NEGATIVE) 04/03/21 20:55 Influenza Type B (PCR) Negative (NEGATIVE) 04/03/21 20:55 RSV (PCR) Negative (NEGATIVE) 04/03/21 20:55 Other Results Comments: the ekg showed sinus rhythm XRAY XRAY Interpreted by: Radiologist (no infiltrate) Opioid Opioid Risk Tool Age (Puneet box if 16-45): No History of Preadolescent Sexual Abuse: No Total: 0 Total Score Risk Category: Low Risk Copyright: [facility] predicting aberrant behaviors Diagnosis Discharge Problem: Dizziness, Dehydration, mild, Sepsis
[2021-04-03 17:55] LABS: BASOPHILS # (AUTO) 0.1 X10^3/uL (0.0-0.1); BASOPHILS % (AUTO) 0.4 % (0.2-1.0); EOSINOPHILS # (AUTO) 0.1 x10^3/uL (0.0-0.2); EOSINOPHILS % (AUTO) 0.4 % (0.9-2.9); HEMATOCRIT 40.7 % (42.0-54.0); HEMOGLOBIN 13.8 g/dL (13.5-18.0); LYMPHOCYTES # (AUTO) 1.1 X10^3/uL (1.3-2.9); LYMPHOCYTES % (AUTO) 4.4 % (21.0-51.0); MEAN CORPUSCULAR HEMOGLOBIN 29.7 pg (27.0-34.0); MEAN CORPUSCULAR VOLUME 87.3 fL (80.0-100.0); MEAN PLATELET VOLUME 8.8 fL (7.4-11.0); MONOCYTES # (AUTO) 1.6 x10^3/uL (0.3-0.8); MONOCYTES % (AUTO) 6.8 % (0.0-13.0); NEUTROPHILS # (AUTO) 20.9 x10^3/uL (2.2-4.8); PLATELET COUNT 304 X10^3/uL (150.0-450.0); RED BLOOD COUNT 4.66 X10^6/uL (4.7-6.0); RED CELL DISTRIBUTION WIDTH 13.6 % (11.6-16.5); WHITE BLOOD COUNT 23.8 X10^3/uL (3.6-10.0)
[2021-04-03 18:07] LABS: ALBUMIN 2.4 g/dL (3.4-5.0); CALCIUM 8.9 mg/dL (8.5-10.1); CARBON DIOXIDE 28.7 mmol/L (21-32); COR CA(FOR HYPOALB) 10.2 mg/dL (8.5-10.1); CREATININE 4.09 mg/dL (0.70-1.30); TOTAL PROTEIN 7.1 g/dL (6.4-8.2)
[2021-04-03 18:58] LABS: BILIRUBIN,URINE NEGATIVE (NEGATIVE); BLOOD/HEMOGLOBIN,URINE 4+ (NEGATIVE); GLUCOSE, URINE NEGATIVE (NEGATIVE); KETONES,URINE NEGATIVE (NEGATIVE); LEUKOCYTE ESTERASE ,URINE 1+ (NEGATIVE); NITRITES,URINE NEGATIVE (NEGATIVE); PROTEIN,URINE 3+ (NEGATIVE); UROBILINOGEN,URINE NORMAL (NORMAL)
--- NOTE | 2021-04-03 19:08 | CT ---
EXAM: HEAD CT WITHOUT INTRAVENOUS CONTRASTHISTORY: Altered mental status x1.5 weeks. Leukocytosis.TECHNIQUE: Spiral axial CT images are obtained through the brain without the administration of intravenous contrast. Additional sagittal and coronal reformatted images are reconstructed.DOSIMETRY: Total DLP 1131.6 mGycm; CTDI 70.7 mGyCOMPARISON: Head CT dated December 06, 2019.FINDINGS:There are patchy parenchymal lucencies within the white matter tracks of the centrum semiovale, consistent with chronic sequela of atherosclerotic microvascular ischemic disease. Atherosclerosis of the carotid siphons and distal left vertebral artery seen. Consider follow-up MRA as clinically warranted.There is diffuse cerebral cortical atrophy. The centrum semiovale, basal ganglia, cerebellum, and brainstem are otherwise grossly unremarkable for a noncontrast CT scan. There is no acute intracranial hemorrhage, gross acute infarction, mass lesion, midline shift, or hydrocephalus seen. No extra-axial mass or abnormal fluid collection noted.The calvarium is intact. The partially imaged paranasal sinuses, middle ear cavities and mastoid air cells are clear.IMPRESSION:1. Chronic microvascular ischemic disease, but no discernible acute infarction seen. Consider followup MRI with diffusion-weighted imaging to rule out occult acute infarction if clinically warranted.2. Atherosclerosis of the carotid siphons and distal left vertebral artery seen. Consider follow-up MRA as clinically warranted.3. No skull fracture, intracranial hemorrhage, mass lesion, midline shift, or hydrocephalus seen.4. Overall, no significant interval change seen.Electronically signed by: Beatris Sanchez (Apr 03, 2021 19:07:00)
[2021-04-03 19:14] LABS: APPEARANCE,URINE CLOUDY (CLEAR); COLOR,URINE DARK YELLOW (YELLOW)
[2021-04-03 19:15] LABS: BACTERIA,URINE 4+ /HPF (NEGATIVE); SQUAMOUS EPITHELIAL CELL,UR NEGATIVE /HPF (NEGATIVE)
[2021-04-03 19:43] LABS: PLATELET MORPHOLOGY COMMENT NORMAL (NORMAL); TOXIC GRANULATION PRESENT
[2021-04-03] MEDS ORDERED: NS 1,000 ML IV 1,000 ML IV ONE ×2 (20:39→23:09)
[2021-04-03] MEDS ORDERED: ROCEPHIN VIAL 1 GRAM IV ONE (20:39)
[2021-04-03] MEDS ORDERED: NS 1,000 ML IV 1,000 ML ONE ×2 (20:44→23:10)
[2021-04-03] MEDS ORDERED: ROCEPHIN VIAL 1 GRAM ONE (20:44)
--- NOTE | 2021-04-03 21:50 | RAD ---
STUDY: FRONTAL VIEW CHESTCOMPARISON: November 30, 2019HISTORY: PT NOTED TO BE HAVING SOME AMS FOR 1.5 WEEK, AND BLOOD WORK COLLECTED AND WBC 22.7, AND BUN AND CREATINE ELEVATEDFINDINGS:Partial visualization of cervical fusion hardware is noted.No focal consolidation is seen.The heart size is enlarged but stable from prior exam with imaging features suggesting mild degree of pulmonary edema.The mediastinum is unremarkable.There is no evidence of pleural effusion or gross pneumothorax.The trachea is midline.IMPRESSION:The heart size is enlarged but stable from prior exam with imaging features suggesting mild degree of pulmonary edema.Correlation with patient BNP levels may be helpful. Differential diagnosis should include, but is not limited to acute airspace disease such as infection given the patient's laboratory history of an elevated white blood cell count. These imaging features were not present on the prior study.Electronically signed by: Kit Jeong (Apr 03, 2021 21:49:31)
[2021-04-04 04:49] VITALS: BMI 33.4
[2021-04-04] MEDS ORDERED: LEVAQUIN TAB 500 MG PO SCH (09:00)
[2021-04-04] MEDS: FLOMAX PO SCH ×3 (09:27→11:47)
[2021-04-04] MEDS: FLONASE NASAL SPRAY ENOSTRIL SCH ×3 (09:27→11:46)
[2021-04-04] MEDS: PEPCID TAB 20 MG PO SCH ×3 (09:27→11:47)
[2021-04-04] MEDS: PriLOSEC PO SCH ×4 (09:27→21:35)
[2021-04-04] MEDS: KLONOPIN TAB 0.5 MG PO SCH ×4 (09:27→21:35)
[2021-04-04] MEDS: NS 1,000 ML IV 1,000 ML IV SCH (11:45)
[2021-04-04] MEDS ORDERED: MAALOX or MYLANTA PO PRN (12:24)
[2021-04-04] MEDS: CARDIZEM CD 120 MG 24-HR PO SCH (14:02)
[2021-04-04] MEDS: WELLBUTRIN XL 150 MG (DAILY) PO SCH (14:02)
--- NOTE | 2021-04-04 14:27 | DR.H&P ---
H&P History & Physical for Day of: H&P Date: 05/06/21 Chief Complaint Chief Complaint: Altered mental status Dehydration Allergies Allergies Allergy/AdvReac Type Severity Reaction Status Date / Time codeine Allergy Verified 04/04/21 02:10 morphine Allergy Verified 04/04/21 02:10 History of Present Illness History of Present Illness: Pt is a 80 year old male admitted resident of [facility] that presented with altered mental status, acute cystitis, pneumon ia, and dehydration. In the ED, labs/imaging: Wbc 23, Hgb 13.8, Plt 304, Na 141, K 4.3, Creatinine 4.09, Glucose 127, BNP wnl, UA abnormal, Urine culture, Blood/urine culture, CT head: negative for any acute findings, CXR was obtained that revealed: The heart size is enlarged but stable from prior exam with imaging features suggesting mild degree of pulmonary edema. Correlation with patient BNP levels may be helpful. Differential diagnosis should include, but is not limited to acute airspace disease such as infection given the patient's laboratory history of an elevated white blood cell count. Pt was given 1g Rocephin and started on Levaquin. BNP wnl, will start on gentle hydration IVF NS@75ml/h. Restart home medications. Continue to monitor and follow up labs/imaging in the morning. Past Medical History Past Medical History: Anxiety, Asthma, GERD and Hypertension Past Surgical History Surgical History: Joint Replacement and Ortho Surgery Family History Family Medical History: Cancer, [place], Coronary Artery Disease, Heart Failure and Hypertension Social History Does patient currently use any type of tobacco product: No Have you used tobacco products in the last 12 months: No Type of Tobacco Use: None Does any household member use tobacco: No Alcohol Use: None Drug Use: None Medications Home Medications: codeine Allergy (Verified 04/04/21 02:10) morphine Allergy (Verified 04/04/21 02:10) CONTINUE taking the following medications alum-mag hydroxide-simeth [Maalox Maximum Strength] 20 ml PO Q6H PRN 04/04/21 [History] bupropion HCl 150 mg PO DAILY 04/04/21 [History] docusate sodium [Colace] 200 mg PO HS 04/04/21 [History] furosemide 20 mg PO DAILY 04/04/21 [History] hydrochlorothiazide 12.5 mg PO DAILY 04/04/21 [History] hydrocodone-acetaminophen [Vida] 1 tab PO Q6H PRN 04/04/21 [History] iron-folic acid-mv, min cmb#15 [Ferrocite Plus] 1 cap PO DAILY 04/04/21 [History] ketoconazole 1 applic TOPICAL QMWF 04/04/21 [History] levofloxacin 500 mg PO DAILY 04/04/21 [History] linaclotide [Linzess] 145 mcg PO DAILY 04/04/21 [History] melatonin 5 mg PO HS 04/04/21 [History] polyethylene glycol 3350 [Miralax] 17 g PO DAILY 04/04/21 [History] sertraline 100 mg PO HS 04/04/21 [History] valsartan 160 mg PO DAILY 04/04/21 [History] Labs Result Diagrams: 04/03/21 17:50 04/03/21 17:50 Labs: 04/03/21 18:18 Urine,Catheterized Urine Culture - Preliminary Laboratory WBC 23.8 X10^3/uL (3.6-10.0) H 04/03/21 17:50 RBC 4.66 X10^6/uL (4.7-6.0) L 04/03/21 17:50 Hgb 13.8 g/dL (13.5-18.0) 04/03/21 17:50 Hct 40.7 % (42.0-54.0) L 04/03/21 17:50 MCV 87.3 fL (80.0-100.0) 04/03/21 17:50 MCH 29.7 pg (27.0-34.0) 04/03/21 17:50 MCHC 34.0 g/dL (33.0-35.0) 04/03/21 17:50 RDW 13.6 % (11.6-16.5) 04/03/21 17:50 Plt Count 304 X10^3/uL (150.0-450.0) 04/03/21 17:50 Plt Count Comment Adequate (ADEQUATE) 04/03/21 17:50 MPV 8.8 fL (7.4-11.0) 04/03/21 17:50 Neut % (Auto) 88.0 % (42.0-75.0) H 04/03/21 17:50 Lymph % (Auto) 4.4 % (21.0-51.0) L 04/03/21 17:50 [place] % (Auto) 6.8 % (0.0-13.0) 04/03/21 17:50 Eos % (Auto) 0.4 % (0.9-2.9) L 04/03/21 17:50 Baso % (Auto) 0.4 % (0.2-1.0) 04/03/21 17:50 Neut # (Auto) 20.9 x10^3/uL (2.2-4.8) H 04/03/21 17:50 Lymph # (Auto) 1.1 X10^3/uL (1.3-2.9) L 04/03/21 17:50 [place] # (Auto) 1.6 x10^3/uL (0.3-0.8) H 04/03/21 17:50 Eos # (Auto) 0.1 x10^3/uL (0.0-0.2) 04/03/21 17:50 Baso # (Auto) 0.1 X10^3/uL (0.0-0.1) 04/03/21 17:50 Absolute Nucleated RBC 0.0 /100WBC 04/03/21 17:50 Total Counted 100 04/03/21 17:50 Neutrophils % (Manual) 91 % (39-76) H 04/03/21 17:50 Lymphocytes % (Manual) 3 % (13-43) L 04/03/21 17:50 Monocytes % (Manual) 6 % (4-9) 04/03/21 17:50 Toxic Granulation Present 04/03/21 17:50 Plt Morphology Comment Normal (NORMAL) 04/03/21 17:50 RBC Morphology Normal (NORMAL) 04/03/21 17:50 Sodium 141 mmol/L (136-145) 04/03/21 17:50 Corrected Sodium 142 mmol/L (136-145) 04/03/21 17:50 Potassium 4.3 mmol/L (3.5-5.1) 04/03/21 17:50 Chloride 99 mmol/L (98-107) 04/03/21 17:50 Carbon Dioxide 28.7 mmol/L (21-32) 04/03/21 17:50 BUN 77 mg/dL (7-18) H 04/03/21 17:50 Creatinine 4.09 mg/dL (0.70-1.30) H 04/03/21 17:50 Est GFR (MDRD) Af Amer 18 (>60) L 04/03/21 17:50 Est GFR (MDRD) Non-Af 15 (>60) L 04/03/21 17:50 Glucose 127 mg/dL (65-99) H 04/03/21 17:50 Lactic Acid 1.2 mmol/L (0.4-2.0) 04/03/21 20:50 Calcium 8.9 mg/dL (8.5-10.1) 04/03/21 17:50 Corrected Calcium 10.2 mg/dL (8.5-10.1) H 04/03/21 17:50 Total Bilirubin 0.40 mg/dL (0.2-1.0) 04/03/21 17:50 AST 17 Units/L (15-37) 04/03/21 17:50 ALT 22 Units/L (12-78) 04/03/21 17:50 Alkaline Phosphatase 76 Units/L (46-116) 04/03/21 17:50 B-Natriuretic Peptide 25.7 pg/mL (0-79) 04/03/21 17:50 Total Protein 7.1 g/dL (6.4-8.2) 04/03/21 17:50 Albumin 2.4 g/dL (3.4-5.0) L 04/03/21 17:50 Globulin 4.7 g/dL (2.5-4.5) H 04/03/21 17:50 Albumin/Globulin Ratio 0.5 Ratio (1.1-2.1) L 04/03/21 17:50 Specimen Type Catherized urine 04/03/21 18:18 Urine Color Dark yellow (YELLOW) 04/03/21 18:18 Urine Appearance Cloudy (CLEAR) 04/03/21 18:18 Urine pH 8.0 (5.0 - 8.0) 04/03/21 18:18 Ur Specific [place] 1.015 (1.000-1.030) 04/03/21 18:18 Urine Protein 3+ (NEGATIVE) 04/03/21 18:18 Urine Glucose (UA) Negative (NEGATIVE) 04/03/21 18:18 Urine Ketones Negative (NEGATIVE) 04/03/21 18:18 Urine Occult Blood 4+ (NEGATIVE) 04/03/21 18:18 Urine Nitrite Negative (NEGATIVE) 04/03/21 18:18 Urine Bilirubin Negative (NEGATIVE) 04/03/21 18:18 Urine Urobilinogen Normal (NORMAL) 04/03/21 18:18 Ur Leukocyte Esterase 1+ (NEGATIVE) 04/03/21 18:18 Urine RBC 5-10 /HPF (0-3) A 04/03/21 18:18 Urine WBC Tntc /HPF (0-5) A 04/03/21 18:18 Ur Squamous Epith Cells Negative /HPF (NEGATIVE) 04/03/21 18:18 Urine Bacteria 4+ /HPF (NEGATIVE) 04/03/21 18:18 Ur Culture Indicated? Yes/culture set up 04/03/21 18:18 Urine Opiates Screen Positive (NEG=<300) 04/03/21 18:18 Urine Methadone Screen Negative (NEG=<300) 04/03/21 18:18 Ur Barbiturates Screen Negative (NEG=<200) 04/03/21 18:18 Ur Phencyclidine Scrn Negative (NEG=<25) 04/03/21 18:18 Ur Amphetamines Screen Negative (NEG=<1000) 04/03/21 18:18 U Benzodiazepines Scrn Negative (NEG=<200) 04/03/21 18:18 Urine Cocaine Screen Negative (NEG=<300) 04/03/21 18:18 U Marijuana (THC) Screen Negative (NEG=<50) 04/03/21 18:18 SARS-CoV-2 (PCR) Negative (NEGATIVE) 04/03/21 20:55 Influenza Type A (PCR) Negative (NEGATIVE) 04/03/21 20:55 Influenza Type B (PCR) Negative (NEGATIVE) 04/03/21 20:55 RSV (PCR) Negative (NEGATIVE) 04/03/21 20:55 Review of Systems Constitutional: Weakness; denies Fever and Chills Eyes: No Symptoms Reported ENT: No Symptoms Reported Respiratory: Cough Cardiovascular: No Symptoms Reported Gastrointestinal: No Symptoms Reported Genitourinary: Dysuria Musculoskeletal: No Symptoms Reported Skin: No Symptoms Reported Neurological: No Symptoms Reported Physical Exam Vital Signs: Temperature 97.9 F Pulse Rate [Brachial] 79 Pulse Rate 84 Respiratory Rate 20 Blood Pressure [Right Arm] 106/52 Blood Pressure 103/54 O2 Sat by Pulse Oximetry 97 Oriented: Other Eyes: Normal Ear: Normal Nose: Normal Throat: Normal Respiratory: RLL [place] Cardiovascular: Normal : Normal Auscultation: Bowel Sounds: Normal Palpation: Normal Tenderness: Normal Skin: Normal Musculoskeletal: Normal Psychiatric: Other Mood Description: Calm Assessment/Plan (1) Altered mental status: Status: Acute Plan: Secondary to infection CT head negative (2) Acute cystitis: Status: Acute Plan: Continue antibiotics (3) Acute renal failure: Status: Acute Plan: 2/2 dehydration, continue IVF monitor renal function (4) Pneumonia: Status: Acute Review H&P Reviewed: Yes Patient was examined?: Yes
[2021-04-04] MEDS ORDERED: ZOLOFT ONE (20:19)
[2021-04-04] MEDS: PULMICORT NEB TX 0.5 MG NEB SCH (20:35)
[2021-04-04] MEDS: ZOLOFT PO SCH (21:34)
[2021-04-04] MEDS: COLACE CAP 100 MG PO SCH (21:34)
[2021-04-04] MEDS: NORCO 5/325 MG TAB PO PRN (21:35)
[2021-04-04] MEDS: MELATONIN PO SCH (21:35)
[2021-04-05] MEDS: NS 1,000 ML IV 1,000 ML IV SCH ×3 (00:02→08:28)
[2021-04-05] MEDS: NORCO 5/325 MG TAB PO PRN ×3 (04:15→21:20)
[2021-04-05 06:18] LABS: BASOPHILS % (AUTO) 0.3 % (0.2-1.0); EOSINOPHILS # (AUTO) 0.2 x10^3/uL (0.0-0.2); EOSINOPHILS % (AUTO) 1.4 % (0.9-2.9); HEMATOCRIT 34.3 % (42.0-54.0); HEMOGLOBIN 11.4 g/dL (13.5-18.0); LYMPHOCYTES # (AUTO) 1.1 X10^3/uL (1.3-2.9); LYMPHOCYTES % (AUTO) 7.1 % (21.0-51.0); MEAN CORPUSCULAR HEMOGLOBIN 29.4 pg (27.0-34.0); MEAN CORPUSCULAR HGB CONC 33.3 g/dL (33.0-35.0); MEAN CORPUSCULAR VOLUME 88.5 fL (80.0-100.0); MEAN PLATELET VOLUME 8.8 fL (7.4-11.0); MONOCYTES # (AUTO) 1.2 x10^3/uL (0.3-0.8); MONOCYTES % (AUTO) 8.2 % (0.0-13.0); NEUTROPHILS # (AUTO) 12.5 x10^3/uL (2.2-4.8); PLATELET COUNT 232 X10^3/uL (150.0-450.0); RED BLOOD COUNT 3.87 X10^6/uL (4.7-6.0); RED CELL DISTRIBUTION WIDTH 13.8 % (11.6-16.5); WHITE BLOOD COUNT 15.1 X10^3/uL (3.6-10.0)
[2021-04-05 06:35] LABS: ALANINE AMINOTRANSFERASE 30 Units/L (12-78); ALBUMIN 1.8 g/dL (3.4-5.0); ALKALINE PHOSPHATASE 67 Units/L (46-116); ASPARTATE AMINO TRANSFERASE 27 Units/L (15-37); BLOOD UREA NITROGEN 90 mg/dL (7-18); CARBON DIOXIDE 22.6 mmol/L (21-32); CHLORIDE 102 mmol/L (98-107); COR CA(FOR HYPOALB) 9.8 mg/dL (8.5-10.1); CREATININE 4.33 mg/dL (0.70-1.30); SODIUM 138 mmol/L (136-145); TOTAL PROTEIN 5.6 g/dL (6.4-8.2); eGFR NON BLACK RACES 14 (>60)
--- NOTE | 2021-04-05 07:15 | RAD ---
CHEST, 1 VIEWHISTORY: PNEUMONIAStudy: Single view of the chest.Comparison:April 03, 2021Findings:Cardiomegaly. No change in the appearance of bilateral interstitial prominence. Osseous structures demonstrate no acute abnormality.IMPRESSION:1. No change from prior.Electronically signed by: ELLE MUÑOZ (Apr 05, 2021 07:13:47)
[2021-04-05] MEDS: PULMICORT NEB TX 0.5 MG NEB SCH ×2 (08:30→20:15)
[2021-04-05] MEDS ORDERED: LASIX PO SCH (09:00)
[2021-04-05] MEDS ORDERED: DIOVAN TAB 160 MG PO SCH (09:00)
[2021-04-05] MEDS ORDERED: HYDROCHLOROTHIAZIDE 12.5 MG CAP PO SCH (09:00)
[2021-04-05] MEDS: CARDIZEM CD 120 MG 24-HR PO SCH (09:06)
[2021-04-05] MEDS: FLOMAX PO SCH (09:06)
[2021-04-05] MEDS: FLONASE NASAL SPRAY ENOSTRIL SCH (09:06)
[2021-04-05] MEDS: LINZESS PO SCH (09:07)
[2021-04-05] MEDS: ZyrTEC TAB 10 MG PO SCH (09:07)
[2021-04-05] MEDS: PriLOSEC PO SCH ×2 (09:07→20:19)
[2021-04-05] MEDS: TAB-A-VITE PO SCH (09:07)
[2021-04-05] MEDS: KLONOPIN TAB 0.5 MG PO SCH ×2 (09:07→20:19)
[2021-04-05] MEDS: PEPCID TAB 20 MG PO SCH (09:07)
[2021-04-05] MEDS: WELLBUTRIN XL 150 MG (DAILY) PO SCH (09:07)
--- NOTE | 2021-04-05 11:41 | PCM.PROG ---
Progress Note Progress Note for Day of Date of Exam: 04/05/21 Subjective Subjective: Pt is a 80 year old male resident of senior living admitted for altered mental status, acute cystitis, pneumonia, Acute renal failure, and dehydration. This morning patient is alert and resting in bed. Labs/imaging: Wbc 23>15.1, Hgb 11.4, Plt 232, Na 138, K 3.9, Creatinine 4.09>4.33, Glucose 92, Urine culture prelim gram negative rods >100K, Blood culture pending, CXR was obtained that revealed: No change from prior. Pt is currently on antibiotics IV Levaquin. Continue IVF NS@75ml/h. Trend renal function, hold nephrotoxic medications. Continue to monitor and follow up labs/imaging in the morning. Past Medical Family Social History Past Med/Fam/Surg Hx: No changes since H&P Allergies: Allergies codeine Allergy (Verified 04/04/21 02:10) morphine Allergy (Verified 04/04/21 02:10) Review of Systems ROS: No change since H&P Vital Signs and I&O's Vital Signs: Temperature 97.8 F Pulse Rate [Brachial] 88 Pulse Rate 80 Respiratory Rate 22 Blood Pressure [Right Arm] 121/56 Blood Pressure 103/54 O2 Sat by Pulse Oximetry 93 Intake and Output: Intake & Output 04/02/21 04/03/21 04/04/21 04/05/21 23:59 23:59 23:59 23:59 Intake Total 1310 / 1310 0 / 2090 Output Total 1200 / 1200 400 / 400 Balance 110 / 110 1690 / 1690 Physical Exam Oriented: Other Eyes: Normal Ear: Normal Nose: Normal Throat: Normal Respiratory: Diminished Cardiovascular: Normal : Normal Auscultation: Bowel Sounds: Normal Tenderness: Normal Skin: Normal Musculoskeletal: Normal Psychiatric: Other Mood Description: Calm Speech Pattern: Unclear and Inappropriate Laboratory and Diagnostics Result Diagrams: 04/05/21 05:45 04/05/21 05:45 Labs: 04/03/21 18:18 Urine,Catheterized Urine Culture - Preliminary 04/03/21 21:10 Blood Blood Culture - Preliminary 04/03/21 20:50 Blood Blood Culture - Preliminary Laboratory WBC 15.1 X10^3/uL (3.6-10.0) H D 04/05/21 05:45 RBC 3.87 X10^6/uL (4.7-6.0) L 04/05/21 05:45 Hgb 11.4 g/dL (13.5-18.0) L D 04/05/21 05:45 Hct 34.3 % (42.0-54.0) L 04/05/21 05:45 MCV 88.5 fL (80.0-100.0) 04/05/21 05:45 MCH 29.4 pg (27.0-34.0) 04/05/21 05:45 MCHC 33.3 g/dL (33.0-35.0) 04/05/21 05:45 RDW 13.8 % (11.6-16.5) 04/05/21 05:45 Plt Count 232 X10^3/uL (150.0-450.0) 04/05/21 05:45 Plt Count Comment Adequate (ADEQUATE) 04/03/21 17:50 MPV 8.8 fL (7.4-11.0) 04/05/21 05:45 Neut % (Auto) 83.0 % (42.0-75.0) H 04/05/21 05:45 Lymph % (Auto) 7.1 % (21.0-51.0) L 04/05/21 05:45 [place] % (Auto) 8.2 % (0.0-13.0) 04/05/21 05:45 Eos % (Auto) 1.4 % (0.9-2.9) 04/05/21 05:45 Baso % (Auto) 0.3 % (0.2-1.0) 04/05/21 05:45 Neut # (Auto) 12.5 x10^3/uL (2.2-4.8) H 04/05/21 05:45 Lymph # (Auto) 1.1 X10^3/uL (1.3-2.9) L 04/05/21 05:45 [place] # (Auto) 1.2 x10^3/uL (0.3-0.8) H 04/05/21 05:45 Eos # (Auto) 0.2 x10^3/uL (0.0-0.2) 04/05/21 05:45 Baso # (Auto) 0.0 X10^3/uL (0.0-0.1) 04/05/21 05:45 Absolute Nucleated RBC 0.0 /100WBC 04/05/21 05:45 Total Counted 100 04/03/21 17:50 Neutrophils % (Manual) 91 % (39-76) H 04/03/21 17:50 Lymphocytes % (Manual) 3 % (13-43) L 04/03/21 17:50 Monocytes % (Manual) 6 % (4-9) 04/03/21 17:50 Toxic Granulation Present 04/03/21 17:50 Plt Morphology Comment Normal (NORMAL) 04/03/21 17:50 RBC Morphology Normal (NORMAL) 04/03/21 17:50 Sodium 138 mmol/L (136-145) 04/05/21 05:45 Corrected Sodium TNP 04/05/21 05:45 Potassium 3.9 mmol/L (3.5-5.1) 04/05/21 05:45 Chloride 102 mmol/L (98-107) 04/05/21 05:45 Carbon Dioxide 22.6 mmol/L (21-32) 04/05/21 05:45 BUN 90 mg/dL (7-18) H 04/05/21 05:45 Creatinine 4.33 mg/dL (0.70-1.30) H 04/05/21 05:45 Est GFR (MDRD) Af Amer 17 (>60) L 04/05/21 05:45 Est GFR (MDRD) Non-Af 14 (>60) L 04/05/21 05:45 Glucose 92 mg/dL (65-99) 04/05/21 05:45 Lactic Acid 1.2 mmol/L (0.4-2.0) 04/03/21 20:50 Calcium 8.0 mg/dL (8.5-10.1) L 04/05/21 05:45 Corrected Calcium 9.8 mg/dL (8.5-10.1) 04/05/21 05:45 Total Bilirubin 0.30 mg/dL (0.2-1.0) 04/05/21 05:45 AST 27 Units/L (15-37) 04/05/21 05:45 ALT 30 Units/L (12-78) 04/05/21 05:45 Alkaline Phosphatase 67 Units/L (46-116) 04/05/21 05:45 B-Natriuretic Peptide 25.7 pg/mL (0-79) 04/03/21 17:50 Total Protein 5.6 g/dL (6.4-8.2) L 04/05/21 05:45 Albumin 1.8 g/dL (3.4-5.0) L 04/05/21 05:45 Globulin 3.8 g/dL (2.5-4.5) 04/05/21 05:45 Albumin/Globulin Ratio 0.5 Ratio (1.1-2.1) L 04/05/21 05:45 Specimen Type Catherized urine 04/03/21 18:18 Urine Color Dark yellow (YELLOW) 04/03/21 18:18 Urine Appearance Cloudy (CLEAR) 04/03/21 18:18 Urine pH 8.0 (5.0 - 8.0) 04/03/21 18:18 Ur Specific [place] 1.015 (1.000-1.030) 04/03/21 18:18 Urine Protein 3+ (NEGATIVE) 04/03/21 18:18 Urine Glucose (UA) Negative (NEGATIVE) 04/03/21 18:18 Urine Ketones Negative (NEGATIVE) 04/03/21 18:18 Urine Occult Blood 4+ (NEGATIVE) 04/03/21 18:18 Urine Nitrite Negative (NEGATIVE) 04/03/21 18:18 Urine Bilirubin Negative (NEGATIVE) 04/03/21 18:18 Urine Urobilinogen Normal (NORMAL) 04/03/21 18:18 Ur Leukocyte Esterase 1+ (NEGATIVE) 04/03/21 18:18 Urine RBC 5-10 /HPF (0-3) A 04/03/21 18:18 Urine WBC Tntc /HPF (0-5) A 04/03/21 18:18 Ur Squamous Epith Cells Negative /HPF (NEGATIVE) 04/03/21 18:18 Urine Bacteria 4+ /HPF (NEGATIVE) 04/03/21 18:18 Ur Culture Indicated? Yes/culture set up 04/03/21 18:18 Urine Opiates Screen Positive (NEG=<300) 04/03/21 18:18 Urine Methadone Screen Negative (NEG=<300) 04/03/21 18:18 Ur Barbiturates Screen Negative (NEG=<200) 04/03/21 18:18 Ur Phencyclidine Scrn Negative (NEG=<25) 04/03/21 18:18 Ur Amphetamines Screen Negative (NEG=<1000) 04/03/21 18:18 U Benzodiazepines Scrn Negative (NEG=<200) 04/03/21 18:18 Urine Cocaine Screen Negative (NEG=<300) 04/03/21 18:18 U Marijuana (THC) Screen Negative (NEG=<50) 04/03/21 18:18 SARS-CoV-2 (PCR) Negative (NEGATIVE) 04/03/21 20:55 Influenza Type A (PCR) Negative (NEGATIVE) 04/03/21 20:55 Influenza Type B (PCR) Negative (NEGATIVE) 04/03/21 20:55 RSV (PCR) Negative (NEGATIVE) 04/03/21 20:55 Plan (1) Altered mental status: Status: Acute Plan: Secondary to infection CT head negative (2) Acute cystitis: Status: Acute Plan: Continue antibiotics (3) Acute renal failure: Status: Acute Plan: 2/2 dehydration, continue IVF monitor renal function (4) Pneumonia: Status: Acute
[2021-04-05] MEDS ORDERED: APRESOLINE INJ 20 MG VIAL IVP PRN (11:43)
[2021-04-05] MEDS ORDERED: ZOLOFT ONE (20:08)
[2021-04-05] MEDS: COLACE CAP 100 MG PO SCH (20:19)
[2021-04-05] MEDS: MELATONIN PO SCH (20:19)
[2021-04-05] MEDS: ZOLOFT PO SCH (20:20)
[2021-04-06] MEDS: NS 1,000 ML IV 1,000 ML IV SCH ×5 (01:00→22:44)
[2021-04-06] MEDS: NORCO 5/325 MG TAB PO PRN ×3 (03:22→20:30)
[2021-04-06 06:22] LABS: BASOPHILS # (AUTO) 0.1 X10^3/uL (0.0-0.1); BASOPHILS % (AUTO) 0.5 % (0.2-1.0); EOSINOPHILS # (AUTO) 0.3 x10^3/uL (0.0-0.2); EOSINOPHILS % (AUTO) 2.7 % (0.9-2.9); HEMATOCRIT 34.4 % (42.0-54.0); HEMOGLOBIN 11.6 g/dL (13.5-18.0); LYMPHOCYTES # (AUTO) 1.3 X10^3/uL (1.3-2.9); LYMPHOCYTES % (AUTO) 10.8 % (21.0-51.0); MEAN CORPUSCULAR HEMOGLOBIN 29.5 pg (27.0-34.0); MEAN CORPUSCULAR HGB CONC 33.6 g/dL (33.0-35.0); MEAN CORPUSCULAR VOLUME 87.8 fL (80.0-100.0); MEAN PLATELET VOLUME 8.6 fL (7.4-11.0); MONOCYTES % (AUTO) 8.5 % (0.0-13.0); NEUTROPHILS % (AUTO) 77.5 % (42.0-75.0); PLATELET COUNT 256 X10^3/uL (150.0-450.0); RED BLOOD COUNT 3.92 X10^6/uL (4.7-6.0); RED CELL DISTRIBUTION WIDTH 13.4 % (11.6-16.5); WHITE BLOOD COUNT 11.6 X10^3/uL (3.6-10.0)
[2021-04-06 06:33] LABS: ALBUMIN 1.9 g/dL (3.4-5.0); CALCIUM 8.1 mg/dL (8.5-10.1); CARBON DIOXIDE 22.1 mmol/L (21-32); COR CA(FOR HYPOALB) 9.8 mg/dL (8.5-10.1); CREATININE 3.87 mg/dL (0.70-1.30); TOTAL PROTEIN 5.9 g/dL (6.4-8.2)
[2021-04-06] MEDS ORDERED: NS 1,000 ML IV 1,000 ML IV ONE (08:18)
[2021-04-06] MEDS ORDERED: TYGACIL 50 MG VIAL 100 MG in NS 100 ML IV 100 ML IV ONE (08:20)
[2021-04-06] MEDS: PULMICORT NEB TX 0.5 MG NEB SCH ×2 (08:27→21:42)
[2021-04-06] MEDS ORDERED: LEVAQUIN TAB 250 MG PO SCH (09:00)
[2021-04-06] MEDS ORDERED: ATIVAN INJ 2 MG VIAL ONE (09:03)
[2021-04-06] MEDS: ATIVAN INJ 2 MG VIAL IVP PRN (09:08)
[2021-04-06] MEDS: CARDIZEM CD 120 MG 24-HR PO SCH (09:22)
[2021-04-06] MEDS: FLOMAX PO SCH (09:22)
[2021-04-06] MEDS: KLONOPIN TAB 0.5 MG PO SCH ×2 (09:23→20:32)
[2021-04-06] MEDS: LINZESS PO SCH (09:24)
[2021-04-06] MEDS: FLONASE NASAL SPRAY ENOSTRIL SCH (09:24)
[2021-04-06] MEDS: PEPCID TAB 20 MG PO SCH (09:24)
[2021-04-06] MEDS: TAB-A-VITE PO SCH (09:25)
[2021-04-06] MEDS: PriLOSEC PO SCH ×2 (09:25→20:31)
[2021-04-06] MEDS: WELLBUTRIN XL 150 MG (DAILY) PO SCH (09:26)
[2021-04-06] MEDS: ZyrTEC TAB 10 MG PO SCH (09:26)
[2021-04-06] MEDS ORDERED: CONSULT PHARMACY - ANTIBIOTIC XX SCH (11:31)
[2021-04-06] MEDS: LOVENOX INJ 30 MG SYR SC SCH (12:00)
[2021-04-06] MEDS: ZOSYN VIAL 3.375 GRAMS 3.375 G in NS 100 ML IV + SPIKE MINIBAG* 100 ML IV SCH ×2 (13:00→21:03)
--- NOTE | 2021-04-06 15:13 | RAD ---
HISTORYSEPSIS, UTI, RENAL FAILURE ORTHO, SPINE, HTNSTUDYCHEST, 1 [id number]/03/2021, 11/30/2019FINDINGSStable cardiomegaly. Stable bilateral interstitial prominence. No visible pneumothorax. Possible small right effusion.. No acute osseous finding.IMPRESSIONNo significant interval change.Electronically signed by: Carlos Daniels (Apr 06, 2021 15:12:21)
[2021-04-06] MEDS ORDERED: ZOLOFT ONE (19:42)
[2021-04-06] MEDS: COLACE CAP 100 MG PO SCH (20:31)
[2021-04-06] MEDS: ZOLOFT PO SCH (20:31)
[2021-04-06] MEDS: MELATONIN PO SCH (20:32)
[2021-04-06] MEDS ORDERED: TYGACIL 50 MG VIAL 50 MG in NS 100 ML IV 100 ML IV SCH (21:00)
[2021-04-07 06:13] LABS: BASOPHILS # (AUTO) 0.1 X10^3/uL (0.0-0.1); BASOPHILS % (AUTO) 0.5 % (0.2-1.0); EOSINOPHILS # (AUTO) 0.3 x10^3/uL (0.0-0.2); EOSINOPHILS % (AUTO) 2.8 % (0.9-2.9); HEMATOCRIT 34.8 % (42.0-54.0); HEMOGLOBIN 11.7 g/dL (13.5-18.0); LYMPHOCYTES % (AUTO) 9.3 % (21.0-51.0); MEAN CORPUSCULAR HEMOGLOBIN 29.6 pg (27.0-34.0); MEAN CORPUSCULAR HGB CONC 33.7 g/dL (33.0-35.0); MEAN CORPUSCULAR VOLUME 87.6 fL (80.0-100.0); MEAN PLATELET VOLUME 8.3 fL (7.4-11.0); MONOCYTES % (AUTO) 8.6 % (0.0-13.0); NEUTROPHILS # (AUTO) 8.8 x10^3/uL (2.2-4.8); NEUTROPHILS % (AUTO) 78.8 % (42.0-75.0); PLATELET COUNT 257 X10^3/uL (150.0-450.0); RED BLOOD COUNT 3.97 X10^6/uL (4.7-6.0); RED CELL DISTRIBUTION WIDTH 13.8 % (11.6-16.5); WHITE BLOOD COUNT 11.1 X10^3/uL (3.6-10.0)
[2021-04-07 06:21] LABS: ALANINE AMINOTRANSFERASE 27 Units/L (12-78); ALKALINE PHOSPHATASE 58 Units/L (46-116); ASPARTATE AMINO TRANSFERASE 19 Units/L (15-37); BLOOD UREA NITROGEN 73 mg/dL (7-18); CALCIUM 8.1 mg/dL (8.5-10.1); CARBON DIOXIDE 25.6 mmol/L (21-32); CHLORIDE 107 mmol/L (98-107); COR CA(FOR HYPOALB) 9.7 mg/dL (8.5-10.1); SODIUM 142 mmol/L (136-145); TOTAL PROTEIN 5.9 g/dL (6.4-8.2); eGFR NON BLACK RACES 19 (>60)
[2021-04-07] MEDS ORDERED: NS 1,000 ML IV 1,000 ML IV ONE (07:52)
[2021-04-07] MEDS: ZOSYN VIAL 3.375 GRAMS 3.375 G in NS 100 ML IV + SPIKE MINIBAG* 100 ML IV SCH ×2 (08:14→21:28)
[2021-04-07] MEDS: LOVENOX INJ 30 MG SYR SC SCH (08:15)
[2021-04-07] MEDS: ZyrTEC TAB 10 MG PO SCH (08:16)
[2021-04-07] MEDS: LINZESS PO SCH (08:16)
[2021-04-07] MEDS: PriLOSEC PO SCH ×2 (08:16→21:00)
[2021-04-07] MEDS: FLOMAX PO SCH (08:17)
[2021-04-07] MEDS: KLONOPIN TAB 0.5 MG PO SCH ×2 (08:18→21:00)
[2021-04-07] MEDS: CARDIZEM CD 120 MG 24-HR PO SCH (08:18)
[2021-04-07] MEDS: TAB-A-VITE PO SCH (08:18)
[2021-04-07] MEDS: PEPCID TAB 20 MG PO SCH (08:19)
[2021-04-07] MEDS: WELLBUTRIN XL 150 MG (DAILY) PO SCH (08:19)
[2021-04-07] MEDS: FLONASE NASAL SPRAY ENOSTRIL SCH (08:20)
[2021-04-07] MEDS: ATIVAN INJ 2 MG VIAL IVP PRN (08:25)
[2021-04-07] MEDS: PULMICORT NEB TX 0.5 MG NEB SCH ×2 (09:10→21:09)
[2021-04-07] MEDS: NS 1,000 ML IV 1,000 ML IV SCH ×3 (10:08→20:00)
[2021-04-07] MEDS: NORCO 5/325 MG TAB PO PRN (17:12)
[2021-04-07] MEDS ORDERED: ZOLOFT ONE (19:56)
[2021-04-07] MEDS: MELATONIN PO SCH (21:00)
[2021-04-07] MEDS: COLACE CAP 100 MG PO SCH (21:00)
[2021-04-07] MEDS: ZOLOFT PO SCH (21:00)
[2021-04-08] MEDS: NORCO 5/325 MG TAB PO PRN ×2 (01:00→12:02)
[2021-04-08] MEDS: ATIVAN INJ 2 MG VIAL IVP PRN (05:35)
[2021-04-08] MEDS: NS 1,000 ML IV 1,000 ML IV SCH ×3 (06:23→15:51)
[2021-04-08 06:35] LABS: BASOPHILS % (AUTO) 0.3 % (0.2-1.0); EOSINOPHILS # (AUTO) 0.3 x10^3/uL (0.0-0.2); EOSINOPHILS % (AUTO) 2.5 % (0.9-2.9); HEMATOCRIT 32.8 % (42.0-54.0); HEMOGLOBIN 11.2 g/dL (13.5-18.0); LYMPHOCYTES # (AUTO) 1.1 X10^3/uL (1.3-2.9); LYMPHOCYTES % (AUTO) 9.8 % (21.0-51.0); MEAN CORPUSCULAR HEMOGLOBIN 29.9 pg (27.0-34.0); MEAN CORPUSCULAR HGB CONC 34.2 g/dL (33.0-35.0); MEAN CORPUSCULAR VOLUME 87.4 fL (80.0-100.0); NEUTROPHILS # (AUTO) 8.6 x10^3/uL (2.2-4.8); NEUTROPHILS % (AUTO) 78.4 % (42.0-75.0); PLATELET COUNT 287 X10^3/uL (150.0-450.0); RED BLOOD COUNT 3.75 X10^6/uL (4.7-6.0); RED CELL DISTRIBUTION WIDTH 13.9 % (11.6-16.5)
[2021-04-08 06:54] LABS: ALBUMIN 1.9 g/dL (3.4-5.0); CARBON DIOXIDE 23.7 mmol/L (21-32); COR CA(FOR HYPOALB) 9.7 mg/dL (8.5-10.1); CREATININE 2.91 mg/dL (0.70-1.30); TOTAL PROTEIN 5.7 g/dL (6.4-8.2)
[2021-04-08] MEDS ORDERED: NS 1,000 ML IV 1,000 ML IV ONE (08:07)
[2021-04-08] MEDS: FLOMAX PO SCH (08:31)
[2021-04-08] MEDS: LINZESS PO SCH (08:31)
[2021-04-08] MEDS: LOVENOX INJ 30 MG SYR SC SCH (08:31)
[2021-04-08] MEDS: KLONOPIN TAB 0.5 MG PO SCH ×2 (08:31→21:03)
[2021-04-08] MEDS: CARDIZEM CD 120 MG 24-HR PO SCH (08:31)
[2021-04-08] MEDS: FLONASE NASAL SPRAY ENOSTRIL SCH (08:31)
[2021-04-08] MEDS: WELLBUTRIN XL 150 MG (DAILY) PO SCH (08:32)
[2021-04-08] MEDS: PEPCID TAB 20 MG PO SCH (08:32)
[2021-04-08] MEDS: ZOSYN VIAL 3.375 GRAMS 3.375 G in NS 100 ML IV + SPIKE MINIBAG* 100 ML IV SCH ×2 (08:32→21:02)
[2021-04-08] MEDS: ZyrTEC TAB 10 MG PO SCH (08:32)
[2021-04-08] MEDS: PriLOSEC PO SCH ×2 (08:32→21:00)
[2021-04-08] MEDS: TAB-A-VITE PO SCH (08:32)
[2021-04-08] MEDS: PULMICORT NEB TX 0.5 MG NEB SCH ×2 (09:00→20:18)
[2021-04-08] MEDS: NS + KCL 40 MEQ/L 1,000 ML IV SCH ×3 (12:02→21:04)
[2021-04-08] MEDS ORDERED: ZOLOFT ONE (20:43)
[2021-04-08] MEDS: MELATONIN PO SCH (21:01)
[2021-04-08] MEDS: ZOLOFT PO SCH (21:02)
[2021-04-08] MEDS: COLACE CAP 100 MG PO SCH (21:03)
[2021-04-09] MEDS: ATIVAN INJ 2 MG VIAL IVP PRN ×2 (01:52→14:35)
[2021-04-09] MEDS: NS + KCL 40 MEQ/L 1,000 ML IV SCH ×4 (03:35→18:10)
[2021-04-09 06:23] LABS: BASOPHILS # (AUTO) 0.1 X10^3/uL (0.0-0.1); BASOPHILS % (AUTO) 0.4 % (0.2-1.0); EOSINOPHILS # (AUTO) 0.2 x10^3/uL (0.0-0.2); EOSINOPHILS % (AUTO) 1.9 % (0.9-2.9); HEMATOCRIT 35.7 % (42.0-54.0); HEMOGLOBIN 12.1 g/dL (13.5-18.0); LYMPHOCYTES # (AUTO) 1.3 X10^3/uL (1.3-2.9); MEAN CORPUSCULAR HEMOGLOBIN 29.5 pg (27.0-34.0); MEAN CORPUSCULAR HGB CONC 33.8 g/dL (33.0-35.0); MEAN CORPUSCULAR VOLUME 87.3 fL (80.0-100.0); MEAN PLATELET VOLUME 7.8 fL (7.4-11.0); MONOCYTES # (AUTO) 0.8 x10^3/uL (0.3-0.8); NEUTROPHILS # (AUTO) 10.7 x10^3/uL (2.2-4.8); NEUTROPHILS % (AUTO) 81.7 % (42.0-75.0); PLATELET COUNT 326 X10^3/uL (150.0-450.0); RED BLOOD COUNT 4.09 X10^6/uL (4.7-6.0); RED CELL DISTRIBUTION WIDTH 13.6 % (11.6-16.5); WHITE BLOOD COUNT 13.1 X10^3/uL (3.6-10.0)
[2021-04-09 06:39] LABS: ALANINE AMINOTRANSFERASE 32 Units/L (12-78); ALBUMIN 2.2 g/dL (3.4-5.0); ALKALINE PHOSPHATASE 58 Units/L (46-116); ASPARTATE AMINO TRANSFERASE 25 Units/L (15-37); BLOOD UREA NITROGEN 44 mg/dL (7-18); CALCIUM 8.4 mg/dL (8.5-10.1); CARBON DIOXIDE 23.5 mmol/L (21-32); CHLORIDE 110 mmol/L (98-107); COR CA(FOR HYPOALB) 9.8 mg/dL (8.5-10.1); SODIUM 144 mmol/L (136-145); TOTAL PROTEIN 6.5 g/dL (6.4-8.2); eGFR NON BLACK RACES 25 (>60)
[2021-04-09] MEDS ORDERED: NS 1,000 ML IV 1,000 ML IV ONE (08:27)
[2021-04-09] MEDS: CARDIZEM CD 120 MG 24-HR PO SCH (09:18)
[2021-04-09] MEDS: FLOMAX PO SCH (09:18)
[2021-04-09] MEDS: LINZESS PO SCH (09:19)
[2021-04-09] MEDS: FLONASE NASAL SPRAY ENOSTRIL SCH (09:19)
[2021-04-09] MEDS: LOVENOX INJ 30 MG SYR SC SCH (09:19)
[2021-04-09] MEDS: KLONOPIN TAB 0.5 MG PO SCH ×2 (09:19→20:57)
[2021-04-09] MEDS: PEPCID TAB 20 MG PO SCH (09:19)
[2021-04-09] MEDS: WELLBUTRIN XL 150 MG (DAILY) PO SCH (09:20)
[2021-04-09] MEDS: ZyrTEC TAB 10 MG PO SCH (09:20)
[2021-04-09] MEDS: PriLOSEC PO SCH ×2 (09:20→20:56)
[2021-04-09] MEDS: ZOSYN VIAL 3.375 GRAMS 3.375 G in NS 100 ML IV + SPIKE MINIBAG* 100 ML IV SCH ×2 (09:20→20:55)
[2021-04-09] MEDS: TAB-A-VITE PO SCH (09:20)
[2021-04-09] MEDS: PULMICORT NEB TX 0.5 MG NEB SCH ×2 (09:35→20:10)
[2021-04-09] MEDS ORDERED: ZOLOFT ONE (19:59)
[2021-04-09] MEDS: MELATONIN PO SCH (20:56)
[2021-04-09] MEDS: ZOLOFT PO SCH (20:56)
[2021-04-09] MEDS: COLACE CAP 100 MG PO SCH (20:57)
[2021-04-10] MEDS: NS + KCL 40 MEQ/L 1,000 ML IV SCH ×5 (06:00→23:20)
[2021-04-10 06:50] LABS: BASOPHILS # (AUTO) 0.1 X10^3/uL (0.0-0.1); BASOPHILS % (AUTO) 0.3 % (0.2-1.0); EOSINOPHILS # (AUTO) 0.3 x10^3/uL (0.0-0.2); EOSINOPHILS % (AUTO) 1.9 % (0.9-2.9); HEMATOCRIT 35.3 % (42.0-54.0); HEMOGLOBIN 11.8 g/dL (13.5-18.0); LYMPHOCYTES # (AUTO) 1.1 X10^3/uL (1.3-2.9); LYMPHOCYTES % (AUTO) 6.7 % (21.0-51.0); MEAN CORPUSCULAR HEMOGLOBIN 29.3 pg (27.0-34.0); MEAN CORPUSCULAR HGB CONC 33.4 g/dL (33.0-35.0); MEAN CORPUSCULAR VOLUME 87.6 fL (80.0-100.0); MEAN PLATELET VOLUME 7.7 fL (7.4-11.0); MONOCYTES % (AUTO) 6.1 % (0.0-13.0); NEUTROPHILS # (AUTO) 14.4 x10^3/uL (2.2-4.8); PLATELET COUNT 360 X10^3/uL (150.0-450.0); RED BLOOD COUNT 4.03 X10^6/uL (4.7-6.0); RED CELL DISTRIBUTION WIDTH 13.7 % (11.6-16.5); WHITE BLOOD COUNT 16.9 X10^3/uL (3.6-10.0)
[2021-04-10 07:12] LABS: ALANINE AMINOTRANSFERASE 37 Units/L (12-78); ALBUMIN 2.1 g/dL (3.4-5.0); ALKALINE PHOSPHATASE 56 Units/L (46-116); ASPARTATE AMINO TRANSFERASE 30 Units/L (15-37); BLOOD UREA NITROGEN 37 mg/dL (7-18); CALCIUM 8.3 mg/dL (8.5-10.1); CARBON DIOXIDE 17.2 mmol/L (21-32); CHLORIDE 112 mmol/L (98-107); COR CA(FOR HYPOALB) 9.8 mg/dL (8.5-10.1); CREATININE 2.25 mg/dL (0.70-1.30); SODIUM 142 mmol/L (136-145); TOTAL PROTEIN 6.3 g/dL (6.4-8.2); eGFR NON BLACK RACES 30 (>60)
[2021-04-10] MEDS: PULMICORT NEB TX 0.5 MG NEB SCH ×2 (09:25→20:52)
[2021-04-10] MEDS: FLOMAX PO SCH (09:43)
[2021-04-10] MEDS: CARDIZEM CD 120 MG 24-HR PO SCH (09:43)
[2021-04-10] MEDS: FLONASE NASAL SPRAY ENOSTRIL SCH (09:43)
[2021-04-10] MEDS: KLONOPIN TAB 0.5 MG PO SCH ×2 (09:43→20:16)
[2021-04-10] MEDS: LOVENOX INJ 30 MG SYR SC SCH (09:44)
[2021-04-10] MEDS: LINZESS PO SCH (09:44)
[2021-04-10] MEDS: TAB-A-VITE PO SCH (09:45)
[2021-04-10] MEDS: WELLBUTRIN XL 150 MG (DAILY) PO SCH (09:45)
[2021-04-10] MEDS: PriLOSEC PO SCH ×2 (09:45→20:15)
[2021-04-10] MEDS: PEPCID TAB 20 MG PO SCH (09:45)
[2021-04-10] MEDS: ZOSYN VIAL 3.375 GRAMS 3.375 G in NS 100 ML IV + SPIKE MINIBAG* 100 ML IV SCH ×2 (09:45→20:18)
[2021-04-10] MEDS: NORCO 5/325 MG TAB PO PRN ×2 (09:46→16:02)
[2021-04-10] MEDS: ZyrTEC TAB 10 MG PO SCH (09:46)
[2021-04-10] MEDS: ATIVAN INJ 2 MG VIAL IVP PRN (16:03)
[2021-04-10] MEDS ORDERED: ZOLOFT ONE (19:54)
[2021-04-10] MEDS: COLACE CAP 100 MG PO SCH (20:14)
[2021-04-10] MEDS: ZOLOFT PO SCH (20:16)
[2021-04-10] MEDS: MELATONIN PO SCH (20:16)
[2021-04-11] MEDS: NORCO 5/325 MG TAB PO PRN ×3 (00:10→20:28)
[2021-04-11] MEDS: ATIVAN INJ 2 MG VIAL IVP PRN (04:09)
[2021-04-11 06:38] LABS: BASOPHILS # (AUTO) 0.1 X10^3/uL (0.0-0.1); BASOPHILS % (AUTO) 0.4 % (0.2-1.0); EOSINOPHILS # (AUTO) 0.4 x10^3/uL (0.0-0.2); EOSINOPHILS % (AUTO) 2.5 % (0.9-2.9); HEMATOCRIT 36.1 % (42.0-54.0); HEMOGLOBIN 11.8 g/dL (13.5-18.0); LYMPHOCYTES # (AUTO) 1.5 X10^3/uL (1.3-2.9); LYMPHOCYTES % (AUTO) 9.5 % (21.0-51.0); MEAN CORPUSCULAR HGB CONC 32.7 g/dL (33.0-35.0); MEAN CORPUSCULAR VOLUME 88.7 fL (80.0-100.0); MEAN PLATELET VOLUME 7.5 fL (7.4-11.0); MONOCYTES # (AUTO) 0.8 x10^3/uL (0.3-0.8); MONOCYTES % (AUTO) 5.4 % (0.0-13.0); NEUTROPHILS # (AUTO) 12.6 x10^3/uL (2.2-4.8); NEUTROPHILS % (AUTO) 82.2 % (42.0-75.0); PLATELET COUNT 364 X10^3/uL (150.0-450.0); RED BLOOD COUNT 4.07 X10^6/uL (4.7-6.0); RED CELL DISTRIBUTION WIDTH 14.1 % (11.6-16.5); WHITE BLOOD COUNT 15.4 X10^3/uL (3.6-10.0)
[2021-04-11 07:07] LABS: ALANINE AMINOTRANSFERASE 35 Units/L (12-78); ALKALINE PHOSPHATASE 52 Units/L (46-116); ASPARTATE AMINO TRANSFERASE 21 Units/L (15-37); BLOOD UREA NITROGEN 29 mg/dL (7-18); CALCIUM 8.4 mg/dL (8.5-10.1); CREATININE 2.21 mg/dL (0.70-1.30); SODIUM 145 mmol/L (136-145); TOTAL PROTEIN 6.2 g/dL (6.4-8.2); eGFR NON BLACK RACES 31 (>60)
[2021-04-11 07:25] LABS: CHLORIDE 115 mmol/L (98-107)
[2021-04-11] MEDS: KLONOPIN TAB 0.5 MG PO SCH ×2 (09:27→20:27)
[2021-04-11] MEDS: LINZESS PO SCH (09:27)
[2021-04-11] MEDS: FLOMAX PO SCH (09:27)
[2021-04-11] MEDS: CARDIZEM CD 120 MG 24-HR PO SCH (09:27)
[2021-04-11] MEDS: FLONASE NASAL SPRAY ENOSTRIL SCH (09:27)
[2021-04-11] MEDS: PEPCID TAB 20 MG PO SCH (09:28)
[2021-04-11] MEDS: LOVENOX INJ 30 MG SYR SC SCH (09:28)
[2021-04-11] MEDS: TAB-A-VITE PO SCH (09:28)
[2021-04-11] MEDS: PriLOSEC PO SCH ×2 (09:28→20:28)
[2021-04-11] MEDS: NS + KCL 40 MEQ/L 1,000 ML IV SCH ×3 (09:28→18:45)
[2021-04-11] MEDS: WELLBUTRIN XL 150 MG (DAILY) PO SCH (09:28)
[2021-04-11] MEDS: ZOSYN VIAL 3.375 GRAMS 3.375 G in NS 100 ML IV + SPIKE MINIBAG* 100 ML IV SCH ×2 (09:29→21:49)
[2021-04-11] MEDS: ZyrTEC TAB 10 MG PO SCH (09:29)
[2021-04-11] MEDS: PULMICORT NEB TX 0.5 MG NEB SCH ×2 (09:49→20:15)
[2021-04-11] MEDS ORDERED: KAYEXALATE SUSP PO NR (13:00)
--- NOTE | 2021-04-11 18:09 | PCM.PROG ---
Progress Note Progress Note for Day of Date of Exam: 04/11/21 Subjective Subjective: Pt is a 80 year old male resident of skilled nursing admitted for altered mental status, acute cystitis, pneumonia, Acute renal failure, and dehydration. This morning patient is alert and resting in bed. Labs/imaging: Wbc 15.4, Hgb 11.8, Plt 232, Na 145, K 5.4, Creatinine 2.21, Glucose 87, Urine culture prelim gram negative rods >100K, Blood culture pending, CXR was obtained that revealed: No change from prior. Pt is currently on antibiotics IV Levaquin. Continue IVF NS@75ml/h. Trend renal function, hold nephrotoxic medications. Continue to monitor and follow up labs/imaging in the morning. Patient is awake this am. Somewhat confused this am. Cr is improved. Past Medical Family Social History Past Med/Fam/Surg Hx: No changes since H&P Allergies: Allergies codeine Allergy (Verified 04/04/21 02:10) morphine Allergy (Verified 04/04/21 02:10) Review of Systems ROS: No change since H&P Vital Signs and I&O's Vital Signs: Temperature 98.5 F Pulse Rate [Brachial] 104 Pulse Rate 93 Respiratory Rate 18 Blood Pressure [Left Arm] 166/85 Blood Pressure [Right Arm] 137/75 Blood Pressure 103/54 O2 Sat by Pulse Oximetry 98 Intake and Output: Intake & Output 04/09/21 04/10/21 04/11/21 04/12/21 11:59 11:59 11:59 11:59 Intake Total 3855 / 3855 2480 / 2480 5039 / 5039 900 / 900 Output Total 2150 / 2150 Balance 1705 / 1705 2480 / 2480 5039 / 5039 900 / 900 Physical Exam Oriented: Other Eyes: Normal Ear: Normal Nose: Normal Throat: Normal Respiratory: Diminished Cardiovascular: Normal : Normal Auscultation: Bowel Sounds: Normal Tenderness: Normal Skin: Normal Musculoskeletal: Normal Psychiatric: Other Mood Description: Calm Speech Pattern: Clear Laboratory and Diagnostics Result Diagrams: 04/11/21 06:20 04/11/21 06:11 Labs: 04/03/21 21:10 Blood Blood Culture - Final 04/03/21 20:50 Blood Blood Culture - Final 04/03/21 18:18 Urine,Catheterized Urine Culture - Final [facility] Laboratory WBC 15.4 X10^3/uL (3.6-10.0) H 04/11/21 06:20 RBC 4.07 X10^6/uL (4.7-6.0) L 04/11/21 06:20 Hgb 11.8 g/dL (13.5-18.0) L 04/11/21 06:20 Hct 36.1 % (42.0-54.0) L 04/11/21 06:20 MCV 88.7 fL (80.0-100.0) 04/11/21 06:20 MCH 29.0 pg (27.0-34.0) 04/11/21 06:20 MCHC 32.7 g/dL (33.0-35.0) L 04/11/21 06:20 RDW 14.1 % (11.6-16.5) 04/11/21 06:20 Plt Count 364 X10^3/uL (150.0-450.0) 04/11/21 06:20 Plt Count Comment Adequate (ADEQUATE) 04/03/21 17:50 MPV 7.5 fL (7.4-11.0) 04/11/21 06:20 Neut % (Auto) 82.2 % (42.0-75.0) H 04/11/21 06:20 Lymph % (Auto) 9.5 % (21.0-51.0) L 04/11/21 06:20 [place] % (Auto) 5.4 % (0.0-13.0) 04/11/21 06:20 Eos % (Auto) 2.5 % (0.9-2.9) 04/11/21 06:20 Baso % (Auto) 0.4 % (0.2-1.0) 04/11/21 06:20 Neut # (Auto) 12.6 x10^3/uL (2.2-4.8) H 04/11/21 06:20 Lymph # (Auto) 1.5 X10^3/uL (1.3-2.9) 04/11/21 06:20 [place] # (Auto) 0.8 x10^3/uL (0.3-0.8) 04/11/21 06:20 Eos # (Auto) 0.4 x10^3/uL (0.0-0.2) H 04/11/21 06:20 Baso # (Auto) 0.1 X10^3/uL (0.0-0.1) 04/11/21 06:20 Absolute Nucleated RBC 0.0 /100WBC 04/11/21 06:20 Total Counted 100 04/03/21 17:50 Neutrophils % (Manual) 91 % (39-76) H 04/03/21 17:50 Lymphocytes % (Manual) 3 % (13-43) L 04/03/21 17:50 Monocytes % (Manual) 6 % (4-9) 04/03/21 17:50 Toxic Granulation Present 04/03/21 17:50 Plt Morphology Comment Normal (NORMAL) 04/03/21 17:50 RBC Morphology Normal (NORMAL) 04/03/21 17:50 Sodium 145 mmol/L (136-145) 04/11/21 06:11 Corrected Sodium TNP 04/11/21 06:11 Potassium 5.4 mmol/L (3.5-5.1) H 04/11/21 06:11 Chloride 115 mmol/L (98-107) H* 04/11/21 06:11 Carbon Dioxide 19.0 mmol/L (21-32) L 04/11/21 06:11 BUN 29 mg/dL (7-18) H 04/11/21 06:11 Creatinine 2.21 mg/dL (0.70-1.30) H 04/11/21 06:11 Est GFR (MDRD) Af Amer 37 (>60) L 04/11/21 06:11 Est GFR (MDRD) Non-Af 31 (>60) L 04/11/21 06:11 Glucose 87 mg/dL (65-99) 04/11/21 06:11 Lactic Acid 1.2 mmol/L (0.4-2.0) 04/03/21 20:50 Calcium 8.4 mg/dL (8.5-10.1) L 04/11/21 06:11 Corrected Calcium 10.0 mg/dL (8.5-10.1) 04/11/21 06:11 Total Bilirubin 0.20 mg/dL (0.2-1.0) 04/11/21 06:11 AST 21 Units/L (15-37) 04/11/21 06:11 ALT 35 Units/L (12-78) 04/11/21 06:11 Alkaline Phosphatase 52 Units/L (46-116) 04/11/21 06:11 B-Natriuretic Peptide 25.7 pg/mL (0-79) 04/03/21 17:50 Total Protein 6.2 g/dL (6.4-8.2) L 04/11/21 06:11 Albumin 2.0 g/dL (3.4-5.0) L 04/11/21 06:11 Globulin 4.2 g/dL (2.5-4.5) 04/11/21 06:11 Albumin/Globulin Ratio 0.5 Ratio (1.1-2.1) L 04/11/21 06:11 Specimen Type Catherized urine 04/03/21 18:18 Urine Color Dark yellow (YELLOW) 04/03/21 18:18 Urine Appearance Cloudy (CLEAR) 04/03/21 18:18 Urine pH 8.0 (5.0 - 8.0) 04/03/21 18:18 Ur Specific [place] 1.015 (1.000-1.030) 04/03/21 18:18 Urine Protein 3+ (NEGATIVE) 04/03/21 18:18 Urine Glucose (UA) Negative (NEGATIVE) 04/03/21 18:18 Urine Ketones Negative (NEGATIVE) 04/03/21 18:18 Urine Occult Blood 4+ (NEGATIVE) 04/03/21 18:18 Urine Nitrite Negative (NEGATIVE) 04/03/21 18:18 Urine Bilirubin Negative (NEGATIVE) 04/03/21 18:18 Urine Urobilinogen Normal (NORMAL) 04/03/21 18:18 Ur Leukocyte Esterase 1+ (NEGATIVE) 04/03/21 18:18 Urine RBC 5-10 /HPF (0-3) A 04/03/21 18:18 Urine WBC Tntc /HPF (0-5) A 04/03/21 18:18 Ur Squamous Epith Cells Negative /HPF (NEGATIVE) 04/03/21 18:18 Urine Bacteria 4+ /HPF (NEGATIVE) 04/03/21 18:18 Ur Culture Indicated? Yes/culture set up 04/03/21 18:18 Urine Opiates Screen Positive (NEG=<300) 04/03/21 18:18 Urine Methadone Screen Negative (NEG=<300) 04/03/21 18:18 Ur Barbiturates Screen Negative (NEG=<200) 04/03/21 18:18 Ur Phencyclidine Scrn Negative (NEG=<25) 04/03/21 18:18 Ur Amphetamines Screen Negative (NEG=<1000) 04/03/21 18:18 U Benzodiazepines Scrn Negative (NEG=<200) 04/03/21 18:18 Urine Cocaine Screen Negative (NEG=<300) 04/03/21 18:18 U Marijuana (THC) Screen Negative (NEG=<50) 04/03/21 18:18 SARS-CoV-2 (PCR) Negative (NEGATIVE) 04/03/21 20:55 Influenza Type A (PCR) Negative (NEGATIVE) 04/03/21 20:55 Influenza Type B (PCR) Negative (NEGATIVE) 04/03/21 20:55 RSV (PCR) Negative (NEGATIVE) 04/03/21 20:55 Radiology Reviewed: Yes Plan (1) Hyperkalemia: Status: Acute Plan: Kayexylate 30 grams PO (2) Altered mental status: Status: Acute Plan: Secondary to infection CT head negative (3) Acute cystitis: Status: Acute Plan: Continue antibiotics (4) Acute renal failure: Status: Acute Plan: 2/2 dehydration, continue IVF monitor renal function (5) Pneumonia: Status: Acute
[2021-04-11 18:14] LABS: CARBON DIOXIDE 19.9 mmol/L (21-32); CREATININE 2.2 mg/dL (0.70-1.30)
[2021-04-11 18:15] LABS: CALCIUM 8.1 mg/dL (8.5-10.1); COR CA(FOR HYPOALB) 9.7 mg/dL (8.5-10.1)
[2021-04-11] MEDS ORDERED: ZOLOFT ONE (19:51)
[2021-04-11] MEDS: COLACE CAP 100 MG PO SCH (20:27)
[2021-04-11] MEDS: MELATONIN PO SCH (20:27)
[2021-04-11] MEDS: ZOLOFT PO SCH (20:28)
[2021-04-11] MEDS: NS 1,000 ML IV 1,000 ML IV SCH (21:49)
[2021-04-12] MEDS: ATIVAN INJ 2 MG VIAL IVP PRN (01:27)
[2021-04-12 05:06] LABS: BASOPHILS # (AUTO) 0.1 X10^3/uL (0.0-0.1); BASOPHILS % (AUTO) 0.6 % (0.2-1.0); EOSINOPHILS # (AUTO) 0.4 x10^3/uL (0.0-0.2); EOSINOPHILS % (AUTO) 2.7 % (0.9-2.9); HEMATOCRIT 36.1 % (42.0-54.0); LYMPHOCYTES # (AUTO) 1.2 X10^3/uL (1.3-2.9); LYMPHOCYTES % (AUTO) 8.6 % (21.0-51.0); MEAN CORPUSCULAR HEMOGLOBIN 29.5 pg (27.0-34.0); MEAN CORPUSCULAR HGB CONC 33.2 g/dL (33.0-35.0); MEAN CORPUSCULAR VOLUME 88.8 fL (80.0-100.0); MEAN PLATELET VOLUME 7.7 fL (7.4-11.0); MONOCYTES # (AUTO) 0.7 x10^3/uL (0.3-0.8); MONOCYTES % (AUTO) 5.3 % (0.0-13.0); NEUTROPHILS # (AUTO) 11.7 x10^3/uL (2.2-4.8); NEUTROPHILS % (AUTO) 82.8 % (42.0-75.0); PLATELET COUNT 372 X10^3/uL (150.0-450.0); RED BLOOD COUNT 4.07 X10^6/uL (4.7-6.0); RED CELL DISTRIBUTION WIDTH 13.9 % (11.6-16.5); WHITE BLOOD COUNT 14.2 X10^3/uL (3.6-10.0)
[2021-04-12 05:21] LABS: ALANINE AMINOTRANSFERASE 33 Units/L (12-78); ALBUMIN 2.1 g/dL (3.4-5.0); ALKALINE PHOSPHATASE 53 Units/L (46-116); ASPARTATE AMINO TRANSFERASE 20 Units/L (15-37); BLOOD UREA NITROGEN 26 mg/dL (7-18); CALCIUM 8.7 mg/dL (8.5-10.1); CARBON DIOXIDE 20.7 mmol/L (21-32); COR CA(FOR HYPOALB) 10.2 mg/dL (8.5-10.1); CREATININE 2.19 mg/dL (0.70-1.30); SODIUM 145 mmol/L (136-145); TOTAL PROTEIN 6.3 g/dL (6.4-8.2); eGFR NON BLACK RACES 31 (>60)
[2021-04-12 05:29] LABS: CHLORIDE 115 mmol/L (98-107)
[2021-04-12] MEDS: CARDIZEM CD 120 MG 24-HR PO SCH (08:40)
[2021-04-12] MEDS: FLONASE NASAL SPRAY ENOSTRIL SCH (08:41)
[2021-04-12] MEDS: LINZESS PO SCH (08:42)
[2021-04-12] MEDS: LOVENOX INJ 30 MG SYR SC SCH (08:42)
[2021-04-12] MEDS: PriLOSEC PO SCH ×2 (08:43→23:15)
[2021-04-12] MEDS: PEPCID TAB 20 MG PO SCH (08:43)
[2021-04-12] MEDS: ZOSYN VIAL 3.375 GRAMS 3.375 G in NS 100 ML IV + SPIKE MINIBAG* 100 ML IV SCH ×2 (08:44→23:12)
[2021-04-12] MEDS: WELLBUTRIN XL 150 MG (DAILY) PO SCH (08:44)
[2021-04-12] MEDS: TAB-A-VITE PO SCH (08:44)
[2021-04-12] MEDS: ZyrTEC TAB 10 MG PO SCH (08:45)
[2021-04-12] MEDS ORDERED: VALIUM INJ IM ONE (08:47)
[2021-04-12] MEDS ORDERED: VALIUM INJ IM PRN (08:49)
[2021-04-12] MEDS: FLOMAX PO SCH (08:57)
[2021-04-12] MEDS: PULMICORT NEB TX 0.5 MG NEB SCH ×2 (09:00→21:11)
[2021-04-12] MEDS: KLONOPIN TAB 1 MG PO SCH ×2 (09:00→23:15)
[2021-04-12] MEDS: NS 1,000 ML IV 1,000 ML IV SCH ×2 (14:50→18:43)
[2021-04-12] MEDS ORDERED: BUTT CREAM (COMPOUND) ONE (15:48)
[2021-04-12] MEDS: BUTT CREAM (COMPOUND) TOP SCH ×2 (18:43→23:16)
--- NOTE | 2021-04-12 19:00 | PCM.PROG ---
Progress Note Progress Note for Day of Date of Exam: 04/12/21 Subjective Subjective: Pt is a 80 [facility] male [facility] of [facility] admitted for altered mental status, acute cystitis, pneumonia, Acute renal failure, and dehydration. This morning patient is alert and resting in bed. Labs/imaging: Wbc 15.4, Hgb 11.8, Plt 232, Na 145, K 5.4, Creatinine 2.21, Glucose 87, Urine culture prelim gram negative rods >100K, Blood culture pending, CXR was obtained that revealed: No change from prior. Pt is currently on antibiotics IV Levaquin. Continue IVF NS@75ml/h. Trend renal function, hold nephrotoxic medications. Continue to monitor and follow up labs/imaging in the morning. Patient is awake this am. Somewhat confused this am. Cr is improved. BP is still elevated. Past Medical Family Social History Past Med/Fam/Surg Hx: No changes since H&P Allergies: Allergies codeine Allergy (Verified 04/04/21 02:10) morphine Allergy (Verified 04/04/21 02:10) Review of Systems ROS: No change since H&P Vital Signs and I&O's Vital Signs: Temperature 97.9 F Pulse Rate [Brachial] 93 Pulse Rate 67 Respiratory Rate 23 Blood Pressure [Left Arm] 180/87 Blood Pressure [Right Arm] 137/75 Blood Pressure 103/54 O2 Sat by Pulse Oximetry 99 Intake and Output: Intake & Output 04/10/21 04/11/21 04/12/21 04/13/21 11:59 11:59 11:59 11:59 Intake Total 2480 / 2480 5039 / 5039 2042 720 / 720 Balance 2480 / 2480 5039 / 5039 2042 / 2042 720 / 720 Physical Exam Oriented: Other Eyes: Normal Ear: Normal Nose: Normal Throat: Normal Respiratory: Diminished Cardiovascular: Normal : Normal Auscultation: Bowel Sounds: Normal Tenderness: Normal Skin: Normal Musculoskeletal: Normal Psychiatric: Other Mood Description: Calm Speech Pattern: Clear Laboratory and Diagnostics Result Diagrams: 04/12/21 03:47 04/12/21 03:47 Labs: 04/03/21 21:10 Blood Blood Culture - Final 04/03/21 20:50 Blood Blood Culture - Final 04/03/21 18:18 Urine,Catheterized Urine Culture - Final Proteus Mirabilis Laboratory WBC 14.2 X10^3/uL (3.6-10.0) H 04/12/21 03:47 RBC 4.07 X10^6/uL (4.7-6.0) L 04/12/21 03:47 Hgb 12.0 g/dL (13.5-18.0) L 04/12/21 03:47 Hct 36.1 % (42.0-54.0) L 04/12/21 03:47 MCV 88.8 fL (80.0-100.0) 04/12/21 03:47 MCH 29.5 pg (27.0-34.0) 04/12/21 03:47 MCHC 33.2 g/dL (33.0-35.0) 04/12/21 03:47 RDW 13.9 % (11.6-16.5) 04/12/21 03:47 Plt Count 372 X10^3/uL (150.0-450.0) 04/12/21 03:47 Plt Count Comment Adequate (ADEQUATE) 04/03/21 17:50 MPV 7.7 fL (7.4-11.0) 04/12/21 03:47 Neut % (Auto) 82.8 % (42.0-75.0) H 04/12/21 03:47 Lymph % (Auto) 8.6 % (21.0-51.0) L 04/12/21 03:47 [place] % (Auto) 5.3 % (0.0-13.0) 04/12/21 03:47 Eos % (Auto) 2.7 % (0.9-2.9) 04/12/21 03:47 Baso % (Auto) 0.6 % (0.2-1.0) 04/12/21 03:47 Neut # (Auto) 11.7 x10^3/uL (2.2-4.8) H 04/12/21 03:47 Lymph # (Auto) 1.2 X10^3/uL (1.3-2.9) L 04/12/21 03:47 [place] # (Auto) 0.7 x10^3/uL (0.3-0.8) 04/12/21 03:47 Eos # (Auto) 0.4 x10^3/uL (0.0-0.2) H 04/12/21 03:47 Baso # (Auto) 0.1 X10^3/uL (0.0-0.1) 04/12/21 03:47 Absolute Nucleated RBC 0.0 /100WBC 04/12/21 03:47 Total Counted 100 04/03/21 17:50 Neutrophils % (Manual) 91 % (39-76) H 04/03/21 17:50 Lymphocytes % (Manual) 3 % (13-43) L 04/03/21 17:50 Monocytes % (Manual) 6 % (4-9) 04/03/21 17:50 Toxic Granulation Present 04/03/21 17:50 Plt Morphology Comment Normal (NORMAL) 04/03/21 17:50 RBC Morphology Normal (NORMAL) 04/03/21 17:50 Sodium 145 mmol/L (136-145) 04/12/21 03:47 Corrected Sodium TNP 04/12/21 03:47 Potassium 5.0 mmol/L (3.5-5.1) 04/12/21 03:47 Chloride 115 mmol/L (98-107) H* 04/12/21 03:47 Carbon Dioxide 20.7 mmol/L (21-32) L 04/12/21 03:47 BUN 26 mg/dL (7-18) H 04/12/21 03:47 Creatinine 2.19 mg/dL (0.70-1.30) H 04/12/21 03:47 Est GFR (MDRD) Af Amer 37 (>60) L 04/12/21 03:47 Est GFR (MDRD) Non-Af 31 (>60) L 04/12/21 03:47 Glucose 89 mg/dL (65-99) 04/12/21 03:47 Lactic Acid 1.2 mmol/L (0.4-2.0) 04/03/21 20:50 Calcium 8.7 mg/dL (8.5-10.1) 04/12/21 03:47 Corrected Calcium 10.2 mg/dL (8.5-10.1) H 04/12/21 03:47 Total Bilirubin 0.30 mg/dL (0.2-1.0) 04/12/21 03:47 AST 20 Units/L (15-37) 04/12/21 03:47 ALT 33 Units/L (12-78) 04/12/21 03:47 Alkaline Phosphatase 53 Units/L (46-116) 04/12/21 03:47 B-Natriuretic Peptide 25.7 pg/mL (0-79) 04/03/21 17:50 Total Protein 6.3 g/dL (6.4-8.2) L 04/12/21 03:47 Albumin 2.1 g/dL (3.4-5.0) L 04/12/21 03:47 Globulin 4.2 g/dL (2.5-4.5) 04/12/21 03:47 Albumin/Globulin Ratio 0.5 Ratio (1.1-2.1) L 04/12/21 03:47 Specimen Type Catherized urine 04/03/21 18:18 Urine Color Dark yellow (YELLOW) 04/03/21 18:18 Urine Appearance Cloudy (CLEAR) 04/03/21 18:18 Urine pH 8.0 (5.0 - 8.0) 04/03/21 18:18 Ur Specific [place] 1.015 (1.000-1.030) 04/03/21 18:18 Urine Protein 3+ (NEGATIVE) 04/03/21 18:18 Urine Glucose (UA) Negative (NEGATIVE) 04/03/21 18:18 Urine Ketones Negative (NEGATIVE) 04/03/21 18:18 Urine Occult Blood 4+ (NEGATIVE) 04/03/21 18:18 Urine Nitrite Negative (NEGATIVE) 04/03/21 18:18 Urine Bilirubin Negative (NEGATIVE) 04/03/21 18:18 Urine Urobilinogen Normal (NORMAL) 04/03/21 18:18 Ur Leukocyte Esterase 1+ (NEGATIVE) 04/03/21 18:18 Urine RBC 5-10 /HPF (0-3) A 04/03/21 18:18 Urine WBC Tntc /HPF (0-5) A 04/03/21 18:18 Ur Squamous Epith Cells Negative /HPF (NEGATIVE) 04/03/21 18:18 Urine Bacteria 4+ /HPF (NEGATIVE) 04/03/21 18:18 Ur Culture Indicated? Yes/culture set up 04/03/21 18:18 Urine Opiates Screen Positive (NEG=<300) 04/03/21 18:18 Urine Methadone Screen Negative (NEG=<300) 04/03/21 18:18 Ur Barbiturates Screen Negative (NEG=<200) 04/03/21 18:18 Ur Phencyclidine Scrn Negative (NEG=<25) 04/03/21 18:18 Ur Amphetamines Screen Negative (NEG=<1000) 04/03/21 18:18 U Benzodiazepines Scrn Negative (NEG=<200) 04/03/21 18:18 Urine Cocaine Screen Negative (NEG=<300) 04/03/21 18:18 U Marijuana (THC) Screen Negative (NEG=<50) 04/03/21 18:18 SARS-CoV-2 (PCR) Negative (NEGATIVE) 04/03/21 20:55 Influenza Type A (PCR) Negative (NEGATIVE) 04/03/21 20:55 Influenza Type B (PCR) Negative (NEGATIVE) 04/03/21 20:55 RSV (PCR) Negative (NEGATIVE) 04/03/21 20:55 Plan (1) Altered mental status: Status: Acute Plan: Secondary to infection CT head negative (2) Acute cystitis: Status: Acute Plan: Continue antibiotics (3) Acute renal failure: Status: Acute Narrative Support Text: Improving. Plan: 2/2 dehydration, continue IVF monitor renal function (4) Pneumonia: Status: Acute Plan: Continue IV abx (5) Hyperkalemia: Status: Resolved Plan: Monitor K levels daily.
[2021-04-12] MEDS ORDERED: ZOLOFT ONE (22:51)
[2021-04-12] MEDS: ZOLOFT PO SCH (23:15)
[2021-04-12] MEDS: MELATONIN PO SCH (23:15)
[2021-04-12] MEDS: COLACE CAP 100 MG PO SCH (23:15)
[2021-04-13] MEDS: NORCO 5/325 MG TAB PO PRN (02:27)
[2021-04-13 05:15] LABS: BASOPHILS # (AUTO) 0.1 X10^3/uL (0.0-0.1); BASOPHILS % (AUTO) 0.6 % (0.2-1.0); EOSINOPHILS # (AUTO) 0.3 x10^3/uL (0.0-0.2); HEMATOCRIT 31.8 % (42.0-54.0); HEMOGLOBIN 10.5 g/dL (13.5-18.0); LYMPHOCYTES # (AUTO) 1.1 X10^3/uL (1.3-2.9); LYMPHOCYTES % (AUTO) 9.1 % (21.0-51.0); MEAN CORPUSCULAR HEMOGLOBIN 29.3 pg (27.0-34.0); MEAN CORPUSCULAR HGB CONC 33.1 g/dL (33.0-35.0); MEAN CORPUSCULAR VOLUME 88.5 fL (80.0-100.0); MEAN PLATELET VOLUME 7.7 fL (7.4-11.0); MONOCYTES # (AUTO) 0.6 x10^3/uL (0.3-0.8); MONOCYTES % (AUTO) 5.2 % (0.0-13.0); NEUTROPHILS # (AUTO) 9.5 x10^3/uL (2.2-4.8); NEUTROPHILS % (AUTO) 82.1 % (42.0-75.0); PLATELET COUNT 372 X10^3/uL (150.0-450.0); RED BLOOD COUNT 3.59 X10^6/uL (4.7-6.0); RED CELL DISTRIBUTION WIDTH 14.2 % (11.6-16.5); WHITE BLOOD COUNT 11.6 X10^3/uL (3.6-10.0)
[2021-04-13] MEDS: NS 1,000 ML IV 1,000 ML IV SCH ×2 (05:25→14:56)
[2021-04-13 05:29] LABS: ALANINE AMINOTRANSFERASE 25 Units/L (12-78); ALBUMIN 1.8 g/dL (3.4-5.0); ALKALINE PHOSPHATASE 46 Units/L (46-116); ASPARTATE AMINO TRANSFERASE 16 Units/L (15-37); BLOOD UREA NITROGEN 23 mg/dL (7-18); CALCIUM 7.9 mg/dL (8.5-10.1); COR CA(FOR HYPOALB) 9.7 mg/dL (8.5-10.1); CREATININE 2.06 mg/dL (0.70-1.30); SODIUM 145 mmol/L (136-145); TOTAL PROTEIN 5.4 g/dL (6.4-8.2); eGFR NON BLACK RACES 33 (>60)
[2021-04-13 05:39] LABS: CHLORIDE 115 mmol/L (98-107)
[2021-04-13] MEDS: BUTT CREAM (COMPOUND) TOP SCH ×2 (06:35→14:59)
[2021-04-13] MEDS: ZyrTEC TAB 10 MG PO SCH (08:35)
[2021-04-13] MEDS: LINZESS PO SCH (08:35)
[2021-04-13] MEDS: PriLOSEC PO SCH (08:36)
[2021-04-13] MEDS: KLONOPIN TAB 1 MG PO SCH (08:37)
[2021-04-13] MEDS: WELLBUTRIN XL 150 MG (DAILY) PO SCH (08:37)
[2021-04-13] MEDS: FLOMAX PO SCH (08:38)
[2021-04-13] MEDS: CARDIZEM CD 120 MG 24-HR PO SCH (08:38)
[2021-04-13] MEDS: TAB-A-VITE PO SCH (08:39)
[2021-04-13] MEDS: PEPCID TAB 20 MG PO SCH (08:39)
[2021-04-13] MEDS: FLONASE NASAL SPRAY ENOSTRIL SCH (08:39)
[2021-04-13] MEDS: LOVENOX INJ 30 MG SYR SC SCH (08:40)
[2021-04-13] MEDS: PULMICORT NEB TX 0.5 MG NEB SCH (09:15)
[2021-04-13 13:34] VITALS: BP 140/90
[2021-04-13] MEDS: ZOSYN VIAL 3.375 GRAMS 3.375 G in NS 100 ML IV + SPIKE MINIBAG* 100 ML IV SCH (13:56)
== END 2021-04-13 14:20 | DRG 689 ==
LOC: ER 15:40 → MED/SURG 04-04 01:26
PROVIDERS: ADMIT Internal Medicine; ATTEND Obstetrics & Gynecology Obstetrics
DX: I10 Essential (primary) hypertension; R41.82 Altered mental status, unspecified; Z20.822 Contact with and (suspected) exposure to COVID-19; N17.9 Acute kidney failure, unspecified; F41.9 Anxiety disorder, unspecified; E87.5 Hyperkalemia; J18.9 Pneumonia, unspecified organism; B96.4 Proteus (mirabilis) (morganii) as the cause of diseases classified elsewhere; N30.00 Acute cystitis without hematuria; R26.2 Difficulty in walking, not elsewhere classified

== ENCOUNTER 2021-05-30 16:21 | Inpatient (IN) ==
--- NOTE | 2021-05-30 16:49 | DR.GENAD ---
HPI Time Seen Time Seen by Provider: 05/30/21 16:43 PCP Primary Care Physician: ANDREW MANNING HPI Comment HPI Comment: Pt diagnosed with E.col uti and treated with cipro to which it is resistant as below; currently confused; has a thick, yellowish discharge from penis with fever to 101.5 per [facility]; no n/v/d. Complaint/Symptoms Chief Complaint:: PER FLOR ERVIN THAT PATIENT HAS BEEN TREATED FOR UTI SINCE 05/25 WITH CIPRO, PATIENT'S URINE CULTURE GREW OUT A BACTERIA AND CIPRO WAS RESIST AND NO NEW ANTIBOTIC WAS ORDERED. PER FLOR ERVIN THAT PATIENT HAS DISCHARGE ON THE TIP OF PENIS,AND THAT PATIENT HAS A NURSING HOME MORALESARCADIO UNSURE WHEN CATHETER WAS LAST CHANGED. 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 Self Treatment fo Chief Complaint: CIPRO 500MG Source History Provided: Group Home Mode of Arrival Mode of Arrival: Stretcher Timing Onset of Chief Complaint: 05/30/21 PMH PMH Past Medical History: Yes Past Medical History: Anxiety, Asthma, GERD and Hypertension Past Surgical History: Yes Surgical History: Joint Replacement and Ortho Surgery Family History History of Family Medical Conditions: Yes Family Medical History: Cancer, [place], Coronary Artery Disease, Heart Failure and Hypertension Social History Alcohol Use: None Do you use any recreational Drugs:: Yes Lives Where: Home Infectious screening In the last 2 months have you had wt loss of >10#?: NO Have you had fever, night sweats or hemotysis?: No Have you traveled outside the country in the last 6 months?: No Isolation: Standard ROS Review of Systems Eyes: No Symptoms Reported ENTM: No Symptoms Reported Respiratoy: No Symptoms Reported Cardiovascular: No Symptoms Reported Gastrointestinal/Abdominal: No Symptoms Reported Neurological: No Symptoms Reported Musculoskeletal: No Symptoms Reported Integumentary: No Symptoms Reported Hematologic/Lymphatic: No Symptoms Reported Endocrine: No Symptoms Reported Psychiatric: No Symptoms Reported PE Vital Signs Vitals: Pulse Rate 94 Respiratory Rate 16 Blood Pressure [Left Arm] 123/59 Blood Pressure 94/43 O2 Sat by Pulse Oximetry 99 General Limitations: No Limitations General Appearance: Alert and In No Apparent Distress Head Head Exam: Normal Inspection Eyes Eye exam: Normal Appearance ENT ENT Exam: Normal Exam External Ear Exam: Normal External Inspection TM/Canal Exam: Bilateral: Normal Nose Exam: Normal Nose Exam Mouth Exam: Normal Inspection Throat Exam: Normal Inspection Neck Neck Exam: Normal Inspection Chest Chest Inspection: Normal Inspection Respiratory Respiratory Exam: Normal Lung Sounds Bilat Respiratory Exam: Bilateral: Clear to Auscultation Cardiovascular Cardiovascular Exam: Regular Rate and Normal Rhythm Abdominal Exam Abdominal Exam: Normal Inspection, Normal Bowel Sounds and Soft Extremities Extremities Exam: Normal Inspection Back Back Exam: Normal Inspection Neurologic Neurological Exam: Alert and Oriented X3 Psychiatric Psychiatric Exam: Normal Affect and Normal Mood Skin Skin Exam: Warm, Dry, Intact and Normal Color Other Exam Other Exam: copious amount of thick, pale discharge from penis MDM Differential Diagnosis Differential Diagnosis: uti, sepsis COURSE Consultation Call Returned: 20:34 (Dr Corley accepts admission) Critical Care Notes Total Time (mins): 30 Critical Diagnosis: sepsis with acute sbp to 70s, resistant uti, acute on crf Critical Interventions: fluid bolus, abx, perusual of previous labs ROR Labs Reviewed Laboratory Results Reviewed?: Yes Laboratory: Specimen Type Clean catch urine 05/30/21 17:18 Urine Color Green (YELLOW) 05/30/21 17:18 Urine Appearance Cloudy (CLEAR) 05/30/21 17:18 Urine pH 8.0 (5.0 - 8.0) 05/30/21 17:18 Ur Specific [place] 1.015 (1.000-1.030) 05/30/21 17:18 Urine Protein 4+ (NEGATIVE) 05/30/21 17:18 Urine Glucose (UA) Negative (NEGATIVE) 05/30/21 17:18 Urine Ketones 1+ (NEGATIVE) 05/30/21 17:18 Urine Occult Blood 4+ (NEGATIVE) 05/30/21 17:18 Urine Nitrite Negative (NEGATIVE) 05/30/21 17:18 Urine Bilirubin Negative (NEGATIVE) 05/30/21 17:18 Urine Urobilinogen Normal (NORMAL) 05/30/21 17:18 Ur Leukocyte Esterase 3+ (NEGATIVE) 05/30/21 17:18 Urine RBC 30-50 /HPF (0-3) A 05/30/21 17:18 Urine WBC Tntc /HPF (0-5) A 05/30/21 17:18 Ur Squamous Epith Cells Negative /HPF (NEGATIVE) 05/30/21 17:18 Triple Phos Crystals Few /HPF (NEGATIVE) 05/30/21 17:18 Urine Bacteria 3+ /HPF (NEGATIVE) 05/30/21 17:18 Ur Culture Indicated? Yes/culture set up 05/30/21 17:18 SARS-CoV-2 (PCR) Negative (NEGATIVE) 05/30/21 17:00 Influenza Type A (PCR) Negative (NEGATIVE) 05/30/21 17:00 Influenza Type B (PCR) Negative (NEGATIVE) 05/30/21 17:00 RSV (PCR) Negative (NEGATIVE) 05/30/21 17:00 Other Results Comments: earlier today: wbc 13.l, creat up to 4.36 from 2.4 Opioid Opioid Risk Tool Age (Puneet box if 16-45): No History of Preadolescent Sexual Abuse: No Total: 0 Total Score Risk Category: Low Risk Copyright: Nikolay DAVISON predicting aberrant behaviors Diagnosis Discharge Problem: Cystitis, E. coli urinary tract infection Acute on chronic kidney failure Qualifiers: Acute renal failure type: unspecified Chronic kidney disease stage: stage 4 (severe) Qualified Code(s): N17.9 - Acute kidney failure, unspecified Instructions Forms: [facility] Patient Portal Social Distancing
[2021-05-30] MEDS ORDERED: ZOSYN VIAL 2.25 GRAMS ONE (16:57)
[2021-05-30] MEDS ORDERED: NS 100 ML IV + SPIKE MINIBAG* 100 ML IV ONE (16:57)
[2021-05-30] MEDS: ZOSYN VIAL 2.25 GRAMS 2.25 G in NS 100 ML IV + SPIKE MINIBAG* 100 ML IV SCH ×2 (17:05→21:25)
[2021-05-30 17:26] LABS: BILIRUBIN,URINE NEGATIVE (NEGATIVE); BLOOD/HEMOGLOBIN,URINE 4+ (NEGATIVE); GLUCOSE, URINE NEGATIVE (NEGATIVE); KETONES,URINE 1+ (NEGATIVE); LEUKOCYTE ESTERASE ,URINE 3+ (NEGATIVE); NITRITES,URINE NEGATIVE (NEGATIVE); PROTEIN,URINE 4+ (NEGATIVE); UROBILINOGEN,URINE NORMAL (NORMAL)
[2021-05-30 17:27] LABS: APPEARANCE,URINE CLOUDY (CLEAR); COLOR,URINE GREEN (YELLOW)
[2021-05-30 17:31] LABS: BACTERIA,URINE 3+ /HPF (NEGATIVE); RBC,URINE 30-50 /HPF (0-3); SQUAMOUS EPITHELIAL CELL,UR NEGATIVE /HPF (NEGATIVE)
[2021-05-30 17:32] LABS: TRIPLE PHOSPHATE CRYSTAL,UR FEW /HPF (NEGATIVE)
[2021-05-30] MEDS ORDERED: CONSULT PHARMACY - ANTIBIOTIC XX SCH (18:00)
[2021-05-30] MEDS ORDERED: NS 1,000 ML IV 1,000 ML ONE (18:33)
[2021-05-30] MEDS: NS 1,000 ML IV 1,000 ML IV SCH (18:37)
[2021-05-31] MEDS ORDERED: NS IRRIGATION* 500 ML IR ONE (00:52)
[2021-05-31] MEDS: NS 1,000 ML IV 1,000 ML IV SCH ×4 (02:46→17:06)
[2021-05-31] MEDS: ZOSYN VIAL 2.25 GRAMS 2.25 G in NS 100 ML IV + SPIKE MINIBAG* 100 ML IV SCH ×3 (05:31→21:06)
[2021-05-31 06:17] LABS: BASOPHILS % (AUTO) 0.3 % (0.2-1.0); EOSINOPHILS # (AUTO) 0.2 x10^3/uL (0.0-0.2); EOSINOPHILS % (AUTO) 1.2 % (0.9-2.9); HEMATOCRIT 27.9 % (42.0-54.0); HEMOGLOBIN 9.4 g/dL (13.5-18.0); LYMPHOCYTES # (AUTO) 2.3 X10^3/uL (1.3-2.9); LYMPHOCYTES % (AUTO) 16.3 % (21.0-51.0); MEAN CORPUSCULAR HEMOGLOBIN 28.4 pg (27.0-34.0); MEAN CORPUSCULAR HGB CONC 33.7 g/dL (33.0-35.0); MEAN CORPUSCULAR VOLUME 84.3 fL (80.0-100.0); MEAN PLATELET VOLUME 7.3 fL (7.4-11.0); MONOCYTES # (AUTO) 0.9 x10^3/uL (0.3-0.8); MONOCYTES % (AUTO) 6.3 % (0.0-13.0); NEUTROPHILS # (AUTO) 10.8 x10^3/uL (2.2-4.8); NEUTROPHILS % (AUTO) 75.9 % (42.0-75.0); RED BLOOD COUNT 3.31 X10^6/uL (4.7-6.0); RED CELL DISTRIBUTION WIDTH 14.7 % (11.6-16.5); WHITE BLOOD COUNT 14.2 X10^3/uL (3.6-10.0)
[2021-05-31 06:31] LABS: CALCIUM 8.4 mg/dL (8.5-10.1); CARBON DIOXIDE 22.4 mmol/L (21-32)
[2021-05-31] MEDS ORDERED: NS 1,000 ML IV 1,000 ML IV ONE (10:04)
[2021-05-31] MEDS ORDERED: PATIENT'S HOME MEDICATION (Budesonide-Formoterol 160 MCG/4.5 MCG HFA aerosol inhaler) INH SCH (10:15)
[2021-05-31] MEDS ORDERED: PHARMACY CONSULT - VANCOMYCIN XX SCH (11:00)
[2021-05-31] MEDS: KLONOPIN TAB 0.5 MG PO SCH ×2 (11:16→20:49)
[2021-05-31] MEDS: SOLU-Cortef INJ IVP SCH ×4 (11:16→20:50)
[2021-05-31] MEDS: THIAMINE HCL INJ IVP SCH ×2 (11:16→20:50)
[2021-05-31] MEDS: PEPCID TAB 20 MG PO SCH ×2 (11:16→20:50)
[2021-05-31] MEDS: VANCOMYCIN IV *PREMIX 1 G/200 ML BAG 1 G/200 ML PIGGYBACK IV SCH (11:30)
[2021-05-31] MEDS: WELLBUTRIN XL 150 MG (DAILY) PO SCH (11:30)
[2021-05-31] MEDS ORDERED: ZOLOFT ONE (20:15)
[2021-05-31] MEDS: ZOLOFT PO SCH (20:48)
[2021-05-31] MEDS: COLACE CAP 100 MG PO SCH (20:49)
[2021-05-31] MEDS: PULMICORT NEB TX 0.5 MG NEB SCH (21:00)
[2021-05-31] MEDS: DUONEB 0.5 MG/3 MG (3 mL) NEB SCH (21:00)
[2021-06-01] MEDS: NS 1,000 ML IV 1,000 ML IV SCH ×3 (00:23→17:38)
[2021-06-01 06:23] LABS: BASOPHILS % (AUTO) 0.1 % (0.2-1.0); EOSINOPHILS % (AUTO) 0.1 % (0.9-2.9); HEMATOCRIT 25.7 % (42.0-54.0); HEMOGLOBIN 8.5 g/dL (13.5-18.0); LYMPHOCYTES # (AUTO) 1.5 X10^3/uL (1.3-2.9); LYMPHOCYTES % (AUTO) 12.2 % (21.0-51.0); MEAN CORPUSCULAR HEMOGLOBIN 28.4 pg (27.0-34.0); MEAN CORPUSCULAR HGB CONC 32.9 g/dL (33.0-35.0); MEAN CORPUSCULAR VOLUME 86.1 fL (80.0-100.0); MEAN PLATELET VOLUME 7.2 fL (7.4-11.0); MONOCYTES # (AUTO) 0.6 x10^3/uL (0.3-0.8); MONOCYTES % (AUTO) 4.5 % (0.0-13.0); NEUTROPHILS # (AUTO) 10.2 x10^3/uL (2.2-4.8); NEUTROPHILS % (AUTO) 83.1 % (42.0-75.0); RED BLOOD COUNT 2.99 X10^6/uL (4.7-6.0); RED CELL DISTRIBUTION WIDTH 14.8 % (11.6-16.5); WHITE BLOOD COUNT 12.2 X10^3/uL (3.6-10.0)
[2021-06-01 06:33] LABS: CARBON DIOXIDE 19.4 mmol/L (21-32); CREATININE 2.91 mg/dL (0.70-1.30)
[2021-06-01] MEDS: SOLU-Cortef INJ IVP SCH ×4 (09:04→20:39)
[2021-06-01] MEDS: THIAMINE HCL INJ IVP SCH ×2 (09:05→20:40)
[2021-06-01] MEDS: KLONOPIN TAB 0.5 MG PO SCH ×2 (09:06→20:39)
[2021-06-01] MEDS: WELLBUTRIN XL 150 MG (DAILY) PO SCH (09:06)
[2021-06-01] MEDS: PEPCID TAB 20 MG PO SCH ×2 (09:06→20:37)
[2021-06-01] MEDS: K-DUR TAB 20 MEQ PO SCH (09:07)
[2021-06-01] MEDS: DUONEB 0.5 MG/3 MG (3 mL) NEB SCH ×5 (09:20→21:45)
[2021-06-01] MEDS: PULMICORT NEB TX 0.5 MG NEB SCH ×2 (09:20→21:45)
[2021-06-01] MEDS: NIZORAL CREAM TOP SCH (11:09)
[2021-06-01] MEDS: VANCOMYCIN IV *PREMIX 1 G/200 ML BAG 1 G/200 ML PIGGYBACK IV SCH (11:15)
[2021-06-01 11:33] LABS: ALBUMIN 1.5 g/dL (3.4-5.0); TOTAL PROTEIN 6.1 g/dL (6.4-8.2)
[2021-06-01] MEDS: ZOSYN VIAL 2.25 GRAMS 2.25 G in NS 100 ML IV + SPIKE MINIBAG* 100 ML IV SCH ×3 (13:23→21:14)
[2021-06-01] MEDS ORDERED: ZOLOFT ONE (20:12)
[2021-06-01] MEDS: COLACE CAP 100 MG PO SCH (20:37)
[2021-06-01] MEDS: ZOLOFT PO SCH (20:38)
[2021-06-02] MEDS: NORCO 5/325 MG TAB PO PRN (00:51)
[2021-06-02] MEDS: ZOSYN VIAL 2.25 GRAMS 2.25 G in NS 100 ML IV + SPIKE MINIBAG* 100 ML IV SCH ×3 (05:29→21:10)
[2021-06-02] MEDS: NS 1,000 ML IV 1,000 ML IV SCH ×3 (05:30→18:02)
[2021-06-02 06:31] LABS: BASOPHILS % (AUTO) 0.1 % (0.2-1.0); EOSINOPHILS % (AUTO) 0.1 % (0.9-2.9); HEMATOCRIT 28.5 % (42.0-54.0); HEMOGLOBIN 9.3 g/dL (13.5-18.0); LYMPHOCYTES # (AUTO) 1.9 X10^3/uL (1.3-2.9); LYMPHOCYTES % (AUTO) 13.2 % (21.0-51.0); MEAN CORPUSCULAR HGB CONC 32.6 g/dL (33.0-35.0); MEAN CORPUSCULAR VOLUME 86.1 fL (80.0-100.0); MONOCYTES # (AUTO) 0.7 x10^3/uL (0.3-0.8); MONOCYTES % (AUTO) 4.9 % (0.0-13.0); NEUTROPHILS # (AUTO) 11.6 x10^3/uL (2.2-4.8); NEUTROPHILS % (AUTO) 81.7 % (42.0-75.0); RED BLOOD COUNT 3.31 X10^6/uL (4.7-6.0); RED CELL DISTRIBUTION WIDTH 14.8 % (11.6-16.5); WHITE BLOOD COUNT 14.2 X10^3/uL (3.6-10.0)
[2021-06-02 06:49] LABS: ALANINE AMINOTRANSFERASE 21 Units/L (12-78); ALBUMIN 1.7 g/dL (3.4-5.0); ALKALINE PHOSPHATASE 48 Units/L (46-116); ASPARTATE AMINO TRANSFERASE 16 Units/L (15-37); BLOOD UREA NITROGEN 60 mg/dL (7-18); CALCIUM 8.3 mg/dL (8.5-10.1); CARBON DIOXIDE 19.8 mmol/L (21-32); CHLORIDE 113 mmol/L (98-107); COR CA(FOR HYPOALB) 10.1 mg/dL (8.5-10.1); CREATININE 2.31 mg/dL (0.70-1.30); SODIUM 147 mmol/L (136-145); TOTAL PROTEIN 6.6 g/dL (6.4-8.2); eGFR NON BLACK RACES 29 (>60)
[2021-06-02] MEDS: PEPCID TAB 20 MG PO SCH ×2 (09:12→21:11)
[2021-06-02] MEDS: K-DUR TAB 20 MEQ PO SCH (09:12)
[2021-06-02] MEDS: WELLBUTRIN XL 150 MG (DAILY) PO SCH (09:13)
[2021-06-02] MEDS: KLONOPIN TAB 0.5 MG PO SCH ×2 (09:14→21:12)
[2021-06-02] MEDS: THIAMINE HCL INJ IVP SCH ×2 (09:18→21:12)
[2021-06-02] MEDS: SOLU-Cortef INJ IVP SCH ×4 (09:18→21:11)
[2021-06-02] MEDS: DUONEB 0.5 MG/3 MG (3 mL) NEB SCH ×4 (10:07→20:46)
[2021-06-02] MEDS: PULMICORT NEB TX 0.5 MG NEB SCH ×2 (10:07→20:46)
[2021-06-02] MEDS: MILK OF MAGNESIA PO SCH ×2 (10:53→21:10)
[2021-06-02] MEDS: VANCOMYCIN IV *PREMIX 1 G/200 ML BAG 1 G/200 ML PIGGYBACK IV SCH (11:59)
[2021-06-02] MEDS ORDERED: ZOLOFT ONE (19:48)
[2021-06-02] MEDS: ZOLOFT PO SCH (21:11)
[2021-06-02] MEDS: COLACE CAP 100 MG PO SCH (21:12)
[2021-06-03] MEDS: NS 1,000 ML IV 1,000 ML IV SCH ×3 (02:04→16:04)
[2021-06-03] MEDS: ZOSYN VIAL 2.25 GRAMS 2.25 G in NS 100 ML IV + SPIKE MINIBAG* 100 ML IV SCH ×3 (05:21→21:04)
[2021-06-03 06:26] LABS: BASOPHILS % (AUTO) 0.1 % (0.2-1.0); HEMOGLOBIN 9.2 g/dL (13.5-18.0); LYMPHOCYTES # (AUTO) 1.3 X10^3/uL (1.3-2.9); LYMPHOCYTES % (AUTO) 9.8 % (21.0-51.0); MEAN CORPUSCULAR HEMOGLOBIN 28.2 pg (27.0-34.0); MEAN CORPUSCULAR VOLUME 85.5 fL (80.0-100.0); MEAN PLATELET VOLUME 7.2 fL (7.4-11.0); MONOCYTES # (AUTO) 0.6 x10^3/uL (0.3-0.8); MONOCYTES % (AUTO) 4.5 % (0.0-13.0); NEUTROPHILS # (AUTO) 11.4 x10^3/uL (2.2-4.8); NEUTROPHILS % (AUTO) 85.6 % (42.0-75.0); RED BLOOD COUNT 3.28 X10^6/uL (4.7-6.0); RED CELL DISTRIBUTION WIDTH 15.2 % (11.6-16.5); WHITE BLOOD COUNT 13.3 X10^3/uL (3.6-10.0)
[2021-06-03 06:33] LABS: ALANINE AMINOTRANSFERASE 20 Units/L (12-78); ALBUMIN 1.8 g/dL (3.4-5.0); ALKALINE PHOSPHATASE 48 Units/L (46-116); ASPARTATE AMINO TRANSFERASE 17 Units/L (15-37); BLOOD UREA NITROGEN 52 mg/dL (7-18); CALCIUM 7.5 mg/dL (8.5-10.1); CARBON DIOXIDE 18.2 mmol/L (21-32); COR CA(FOR HYPOALB) 9.3 mg/dL (8.5-10.1); SODIUM 147 mmol/L (136-145); TOTAL PROTEIN 6.2 g/dL (6.4-8.2); eGFR NON BLACK RACES 34 (>60)
[2021-06-03 06:51] LABS: CHLORIDE 115 mmol/L (98-107)
[2021-06-03] MEDS ORDERED: MARCAINE 0.5% ONE ×2 (07:58→10:16)
[2021-06-03] MEDS ORDERED: POLYMYXIN B SULFATE ONE (07:58)
[2021-06-03] MEDS ORDERED: BETADINE SOLN ONE (08:05)
[2021-06-03] MEDS ORDERED: XYLOCAINE 1 % (PLAIN) ONE (08:35)
[2021-06-03] MEDS: PULMICORT NEB TX 0.5 MG NEB SCH ×2 (08:45→20:40)
[2021-06-03] MEDS: DUONEB 0.5 MG/3 MG (3 mL) NEB SCH ×4 (08:45→20:40)
[2021-06-03] MEDS ORDERED: PHARMACY COMMENT IV NR (09:00)
[2021-06-03] MEDS ORDERED: XYLOCAINE 2 % (PLAIN) ONE (09:30)
[2021-06-03] MEDS ORDERED: KETAMINE HCL ONE (09:30)
[2021-06-03] MEDS ORDERED: AMIDATE INJ 40 MG VIAL ONE (09:30)
[2021-06-03] MEDS: KLONOPIN TAB 0.5 MG PO SCH ×2 (11:21→21:07)
[2021-06-03] MEDS: K-DUR TAB 20 MEQ PO SCH (11:21)
[2021-06-03] MEDS: PEPCID TAB 20 MG PO SCH (11:22)
[2021-06-03] MEDS: WELLBUTRIN XL 150 MG (DAILY) PO SCH (11:22)
[2021-06-03] MEDS: MILK OF MAGNESIA PO SCH ×2 (11:23→21:07)
[2021-06-03] MEDS: THIAMINE HCL INJ IVP SCH ×2 (11:23→21:08)
[2021-06-03] MEDS: SOLU-Cortef INJ IVP SCH ×4 (11:24→21:08)
[2021-06-03] MEDS: NIZORAL CREAM TOP SCH (12:24)
[2021-06-03] MEDS: NORCO 5/325 MG TAB PO PRN (12:25)
[2021-06-03] MEDS: VANCOMYCIN IV *PREMIX 1 G/200 ML BAG 1 G/200 ML PIGGYBACK IV SCH (13:00)
[2021-06-03 13:27] LABS: CREATININE 1.96 mg/dL (0.70-1.30); VANCOMYCIN,TROUGH 18.3 ug/mL (15-20)
[2021-06-03] MEDS ORDERED: ZOLOFT ONE (20:19)
[2021-06-03] MEDS: ZOLOFT PO SCH (21:07)
[2021-06-03] MEDS: COLACE CAP 100 MG PO SCH (21:07)
[2021-06-04] MEDS: NS 1,000 ML IV 1,000 ML IV SCH ×5 (00:23→21:00)
[2021-06-04] MEDS: NORCO 5/325 MG TAB PO PRN ×3 (02:21→21:12)
[2021-06-04] MEDS: ZOSYN VIAL 2.25 GRAMS 2.25 G in NS 100 ML IV + SPIKE MINIBAG* 100 ML IV SCH ×3 (05:29→21:06)
[2021-06-04] MEDS: PULMICORT NEB TX 0.5 MG NEB SCH ×2 (09:14→20:43)
[2021-06-04] MEDS: DUONEB 0.5 MG/3 MG (3 mL) NEB SCH ×4 (09:14→20:43)
[2021-06-04 09:27] LABS: BASOPHILS % (AUTO) 0.2 % (0.2-1.0); EOSINOPHILS # (AUTO) 0.1 x10^3/uL (0.0-0.2); EOSINOPHILS % (AUTO) 0.4 % (0.9-2.9); HEMATOCRIT 29.6 % (42.0-54.0); HEMOGLOBIN 9.7 g/dL (13.5-18.0); LYMPHOCYTES # (AUTO) 1.7 X10^3/uL (1.3-2.9); LYMPHOCYTES % (AUTO) 7.1 % (21.0-51.0); MEAN CORPUSCULAR HEMOGLOBIN 28.1 pg (27.0-34.0); MEAN CORPUSCULAR VOLUME 85.2 fL (80.0-100.0); MEAN PLATELET VOLUME 7.1 fL (7.4-11.0); MONOCYTES # (AUTO) 1.2 x10^3/uL (0.3-0.8); NEUTROPHILS % (AUTO) 87.3 % (42.0-75.0); RED BLOOD COUNT 3.47 X10^6/uL (4.7-6.0); RED CELL DISTRIBUTION WIDTH 15.1 % (11.6-16.5); WHITE BLOOD COUNT 24.1 X10^3/uL (3.6-10.0)
[2021-06-04 09:40] LABS: BLOOD UREA NITROGEN 43 mg/dL (7-18); CARBON DIOXIDE 16.9 mmol/L (21-32); CREATININE 1.84 mg/dL (0.70-1.30); SODIUM 146 mmol/L (136-145); eGFR NON BLACK RACES 38 (>60)
[2021-06-04 09:55] LABS: CHLORIDE 116 mmol/L (98-107)
[2021-06-04 10:01] LABS: PLATELET MORPHOLOGY COMMENT NORMAL (NORMAL)
[2021-06-04] MEDS: K-DUR TAB 20 MEQ PO SCH (10:20)
[2021-06-04] MEDS: PEPCID TAB 20 MG PO SCH (10:21)
[2021-06-04] MEDS: KLONOPIN TAB 0.5 MG PO SCH ×2 (10:21→21:09)
[2021-06-04] MEDS: MILK OF MAGNESIA PO SCH ×2 (10:21→21:06)
[2021-06-04] MEDS: WELLBUTRIN XL 150 MG (DAILY) PO SCH (10:22)
[2021-06-04] MEDS: SOLU-Cortef INJ IVP SCH ×4 (10:22→21:08)
[2021-06-04] MEDS: THIAMINE HCL INJ IVP SCH ×2 (10:22→21:08)
[2021-06-04] MEDS: VANCOMYCIN IV *PREMIX 1 G/200 ML BAG 1 G/200 ML PIGGYBACK IV SCH (11:27)
--- NOTE | 2021-06-04 15:24 | DR.PROGNOT ---
Hospital Progress Notes - Progress Note for Day of: Progress Note Date: 06/04/21 - Chief Complaint Chief Complaint: s/p debridement of sacral and Lt heel ulcers . slow improvement ..oral intake is fair . WBC 24.1.. Hgb 9.7.. K 3.. Albumin 1.8. cultures Gm- rods. afebrile - Past Medical Family Social History Past Med/Fam/Surg Hx: No changes since H&P Allergies: Allergies codeine Allergy (Verified 05/30/21 16:23) morphine Allergy (Verified 05/30/21 16:23) - Review Of Systems ROS: No change since H&P - Vital Signs Vital Signs: Temperature 97.7 F Pulse Rate [Left Radial] 110 Pulse Rate 109 Respiratory Rate 22 Blood Pressure [Left Arm] 176/95 Blood Pressure 129/54 O2 Sat by Pulse Oximetry 98 - Physical Exam Skin: Other (dressing intact . no drainage .) Mood Description: Calm Speech Pattern: Clear, Delayed - Laboratory and Diagnostics Result Diagrams: 06/04/21 09:02 06/04/21 13:10 Labs: 06/03/21 10:10 Sacral Wound Gram Stain - Final 06/03/21 10:10 Sacral Wound Culture - Preliminary 06/03/21 10:10 Foot - Left Wound Gram Stain - Final 06/03/21 10:10 Foot - Left Wound Culture - Preliminary 05/30/21 16:53 Blood Blood Culture - Preliminary 05/30/21 16:50 Blood Blood Culture - Preliminary 05/30/21 17:18 Urine,Clean Catch Urine Culture - Final Proteus Mirabilis 05/30/21 17:00 Penis Wound Gram Stain - Final 05/30/21 17:00 Penis Wound Culture - Final [facility] Laboratory WBC 24.1 X10^3/uL (3.6-10.0) H D 06/04/21 09:02 RBC 3.47 X10^6/uL (4.7-6.0) L 06/04/21 09:02 Hgb 9.7 g/dL (13.5-18.0) L 06/04/21 09:02 Hct 29.6 % (42.0-54.0) L 06/04/21 09:02 MCV 85.2 fL (80.0-100.0) 06/04/21 09:02 MCH 28.1 pg (27.0-34.0) 06/04/21 09:02 MCHC 33.0 g/dL (33.0-35.0) 06/04/21 09:02 RDW 15.1 % (11.6-16.5) 06/04/21 09:02 Plt Count 419 X10^3/uL (150.0-450.0) 06/04/21 09:02 Plt Count Comment Adequate (ADEQUATE) 06/04/21 09:02 MPV 7.1 fL (7.4-11.0) L 06/04/21 09:02 Neut % (Auto) 87.3 % (42.0-75.0) H 06/04/21 09:02 Lymph % (Auto) 7.1 % (21.0-51.0) L 06/04/21 09:02 [place] % (Auto) 5.0 % (0.0-13.0) 06/04/21 09:02 Eos % (Auto) 0.4 % (0.9-2.9) L 06/04/21 09:02 Baso % (Auto) 0.2 % (0.2-1.0) 06/04/21 09:02 Neut # (Auto) 21.0 x10^3/uL (2.2-4.8) H 06/04/21 09:02 Lymph # (Auto) 1.7 X10^3/uL (1.3-2.9) 06/04/21 09:02 [place] # (Auto) 1.2 x10^3/uL (0.3-0.8) H 06/04/21 09:02 Eos # (Auto) 0.1 x10^3/uL (0.0-0.2) 06/04/21 09:02 Baso # (Auto) 0.0 X10^3/uL (0.0-0.1) 06/04/21 09:02 Absolute Nucleated RBC 0.0 /100WBC 06/04/21 09:02 Total Counted 100 06/04/21 09:02 Neutrophils % (Manual) 85 % (39-76) H 06/04/21 09:02 Lymphocytes % (Manual) 11 % (13-43) L 06/04/21 09:02 Monocytes % (Manual) 3 % (4-9) L 06/04/21 09:02 Eosinophils % (Manual) 1 % (0-6) 06/04/21 09:02 Plt Morphology Comment Normal (NORMAL) 06/04/21 09:02 RBC Morphology Normal (NORMAL) 06/04/21 09:02 Sodium 146 mmol/L (136-145) H 06/04/21 09:02 Corrected Sodium TNP 06/04/21 09:02 Potassium 3.4 mmol/L (3.5-5.1) L 06/04/21 13:10 Chloride 116 mmol/L (98-107) H* 06/04/21 09:02 Carbon Dioxide 16.9 mmol/L (21-32) L 06/04/21 09:02 BUN 43 mg/dL (7-18) H 06/04/21 09:02 Creatinine 1.84 mg/dL (0.70-1.30) H 06/04/21 09:02 Est GFR (MDRD) Af Amer 46 (>60) L 06/04/21 09:02 Est GFR (MDRD) Non-Af 38 (>60) L 06/04/21 09:02 Glucose 91 mg/dL (65-99) 06/04/21 09:02 Calcium 8.0 mg/dL (8.5-10.1) L 06/04/21 09:02 Corrected Calcium 9.3 mg/dL (8.5-10.1) 06/03/21 05:56 Total Bilirubin 0.30 mg/dL (0.2-1.0) 06/03/21 05:56 AST 17 Units/L (15-37) 06/03/21 05:56 ALT 20 Units/L (12-78) 06/03/21 05:56 Alkaline Phosphatase 48 Units/L (46-116) 06/03/21 05:56 Total Protein 6.2 g/dL (6.4-8.2) L 06/03/21 05:56 Albumin 1.8 g/dL (3.4-5.0) L 06/03/21 05:56 Globulin 4.4 g/dL (2.5-4.5) 06/03/21 05:56 Albumin/Globulin Ratio 0.4 Ratio (1.1-2.1) L 06/03/21 05:56 Specimen Type Clean catch urine 05/30/21 17:18 Urine Color Green (YELLOW) 05/30/21 17:18 Urine Appearance Cloudy (CLEAR) 05/30/21 17:18 Urine pH 8.0 (5.0 - 8.0) 05/30/21 17:18 Ur Specific [place] 1.015 (1.000-1.030) 05/30/21 17:18 Urine Protein 4+ (NEGATIVE) 05/30/21 17:18 Urine Glucose (UA) Negative (NEGATIVE) 05/30/21 17:18 Urine Ketones 1+ (NEGATIVE) 05/30/21 17:18 Urine Occult Blood 4+ (NEGATIVE) 05/30/21 17:18 Urine Nitrite Negative (NEGATIVE) 05/30/21 17:18 Urine Bilirubin Negative (NEGATIVE) 05/30/21 17:18 Urine Urobilinogen Normal (NORMAL) 05/30/21 17:18 Ur Leukocyte Esterase 3+ (NEGATIVE) 05/30/21 17:18 Urine RBC 30-50 /HPF (0-3) A 05/30/21 17:18 Urine WBC Tntc /HPF (0-5) A 05/30/21 17:18 Ur Squamous Epith Cells Negative /HPF (NEGATIVE) 05/30/21 17:18 Triple Phos Crystals Few /HPF (NEGATIVE) 05/30/21 17:18 Urine Bacteria 3+ /HPF (NEGATIVE) 05/30/21 17:18 Ur Culture Indicated? Yes/culture set up 05/30/21 17:18 Vancomycin Trough 18.3 ug/mL (15-20) 06/03/21 12:55 SARS-CoV-2 (PCR) Negative (NEGATIVE) 05/30/21 17:00 Influenza Type A (PCR) Negative (NEGATIVE) 05/30/21 17:00 Influenza Type B (PCR) Negative (NEGATIVE) 05/30/21 17:00 RSV (PCR) Negative (NEGATIVE) 05/30/21 17:00 Tissue Pathology To follow 06/03/21 10:09 - Assessment and Plan 1: sacral and Lt heel ulcers . S/P excisional debridement .. UTI . same local care and IV ABT . - Problem Patient Problems: Patient Problems Cystitis (Acute) N30.90 Acute on chronic kidney failure (Acute) N17.9, N18.9 E. coli urinary tract infection (Acute) N39.0, B96.20 Sepsis (Acute) A41.9
[2021-06-04] MEDS ORDERED: ZOLOFT ONE (20:05)
[2021-06-04] MEDS: ZOLOFT PO SCH (21:07)
[2021-06-04] MEDS: COLACE CAP 100 MG PO SCH (21:09)
[2021-06-05] MEDS: ZOSYN VIAL 2.25 GRAMS 2.25 G in NS 100 ML IV + SPIKE MINIBAG* 100 ML IV SCH ×3 (05:22→21:51)
[2021-06-05] MEDS: NS 1,000 ML IV 1,000 ML IV SCH (05:24)
[2021-06-05 06:24] LABS: BASOPHILS % (AUTO) 0.1 % (0.2-1.0); EOSINOPHILS # (AUTO) 0.1 x10^3/uL (0.0-0.2); EOSINOPHILS % (AUTO) 0.6 % (0.9-2.9); HEMATOCRIT 26.6 % (42.0-54.0); HEMOGLOBIN 8.9 g/dL (13.5-18.0); LYMPHOCYTES # (AUTO) 1.8 X10^3/uL (1.3-2.9); LYMPHOCYTES % (AUTO) 11.2 % (21.0-51.0); MEAN CORPUSCULAR HEMOGLOBIN 28.6 pg (27.0-34.0); MEAN CORPUSCULAR HGB CONC 33.4 g/dL (33.0-35.0); MEAN CORPUSCULAR VOLUME 85.6 fL (80.0-100.0); MEAN PLATELET VOLUME 7.3 fL (7.4-11.0); MONOCYTES # (AUTO) 0.8 x10^3/uL (0.3-0.8); MONOCYTES % (AUTO) 4.9 % (0.0-13.0); NEUTROPHILS # (AUTO) 13.5 x10^3/uL (2.2-4.8); NEUTROPHILS % (AUTO) 83.2 % (42.0-75.0); RED BLOOD COUNT 3.11 X10^6/uL (4.7-6.0); RED CELL DISTRIBUTION WIDTH 15.5 % (11.6-16.5); WHITE BLOOD COUNT 16.2 X10^3/uL (3.6-10.0)
[2021-06-05 07:05] LABS: ALANINE AMINOTRANSFERASE 28 Units/L (12-78); ALBUMIN 1.9 g/dL (3.4-5.0); ALKALINE PHOSPHATASE 52 Units/L (46-116); ASPARTATE AMINO TRANSFERASE 22 Units/L (15-37); BLOOD UREA NITROGEN 37 mg/dL (7-18); CALCIUM 8.1 mg/dL (8.5-10.1); COR CA(FOR HYPOALB) 9.8 mg/dL (8.5-10.1); CREATININE 1.66 mg/dL (0.70-1.30); SODIUM 146 mmol/L (136-145); TOTAL PROTEIN 5.9 g/dL (6.4-8.2); eGFR NON BLACK RACES 43 (>60)
[2021-06-05 07:16] LABS: CHLORIDE 117 mmol/L (98-107)
[2021-06-05] MEDS: MILK OF MAGNESIA PO SCH ×2 (08:44→20:42)
[2021-06-05] MEDS: PEPCID TAB 20 MG PO SCH (08:44)
[2021-06-05] MEDS: LR 1,000 ML IV 1,000 ML IV SCH ×3 (08:44→21:52)
[2021-06-05] MEDS: SOLU-Cortef INJ IVP SCH ×4 (08:44→20:43)
[2021-06-05] MEDS: WELLBUTRIN XL 150 MG (DAILY) PO SCH (08:44)
[2021-06-05] MEDS: K-DUR TAB 20 MEQ PO SCH (08:45)
[2021-06-05] MEDS: KLONOPIN TAB 0.5 MG PO SCH ×2 (08:45→20:42)
[2021-06-05] MEDS: THIAMINE HCL INJ IVP SCH ×2 (08:46→20:42)
[2021-06-05] MEDS: PULMICORT NEB TX 0.5 MG NEB SCH ×2 (09:39→21:40)
[2021-06-05] MEDS: DUONEB 0.5 MG/3 MG (3 mL) NEB SCH ×4 (09:39→21:40)
[2021-06-05] MEDS: VANCOMYCIN IV *PREMIX 1 G/200 ML BAG 1 G/200 ML PIGGYBACK IV SCH (14:21)
[2021-06-05] MEDS: NIZORAL CREAM TOP SCH (14:22)
[2021-06-05] MEDS: CARDIZEM CD 120 MG 24-HR PO SCH (17:44)
[2021-06-05] MEDS: NORCO 5/325 MG TAB PO PRN (17:44)
[2021-06-05] MEDS ORDERED: ZOLOFT ONE (19:57)
[2021-06-05] MEDS: ZOLOFT PO SCH (20:41)
[2021-06-05] MEDS: COLACE CAP 100 MG PO SCH (20:41)
[2021-06-06] MEDS: ZOSYN VIAL 2.25 GRAMS 2.25 G in NS 100 ML IV + SPIKE MINIBAG* 100 ML IV SCH ×4 (05:23→22:34)
[2021-06-06 08:31] LABS: MEAN PLATELET VOLUME 7.4 fL (7.4-11.0)
[2021-06-06 08:36] LABS: BASOPHILS # (AUTO) 0.1 X10^3/uL (0.0-0.1); BASOPHILS % (AUTO) 0.7 % (0.2-1.0); EOSINOPHILS # (AUTO) 0.1 x10^3/uL (0.0-0.2); EOSINOPHILS % (AUTO) 0.7 % (0.9-2.9); HEMATOCRIT 26.4 % (42.0-54.0); HEMOGLOBIN 8.6 g/dL (13.5-18.0); LYMPHOCYTES # (AUTO) 2.9 X10^3/uL (1.3-2.9); LYMPHOCYTES % (AUTO) 15.3 % (21.0-51.0); MEAN CORPUSCULAR HEMOGLOBIN 27.4 pg (27.0-34.0); MEAN CORPUSCULAR HGB CONC 32.4 g/dL (33.0-35.0); MEAN CORPUSCULAR VOLUME 84.6 fL (80.0-100.0); MONOCYTES # (AUTO) 0.9 x10^3/uL (0.3-0.8); MONOCYTES % (AUTO) 4.8 % (0.0-13.0); NEUTROPHILS # (AUTO) 14.9 x10^3/uL (2.2-4.8); NEUTROPHILS % (AUTO) 78.5 % (42.0-75.0); RED BLOOD COUNT 3.12 X10^6/uL (4.7-6.0); RED CELL DISTRIBUTION WIDTH 15.5 % (11.6-16.5)
[2021-06-06 08:45] LABS: ALBUMIN 1.8 g/dL (3.4-5.0); CALCIUM 7.6 mg/dL (8.5-10.1); CARBON DIOXIDE 16.5 mmol/L (21-32); COR CA(FOR HYPOALB) 9.4 mg/dL (8.5-10.1); CREATININE 1.59 mg/dL (0.70-1.30); TOTAL PROTEIN 5.9 g/dL (6.4-8.2); WHITE BLOOD COUNT 20.4 X10^3/uL (3.6-10.0)
[2021-06-06 08:47] LABS: PLATELET MORPHOLOGY COMMENT NORMAL (NORMAL)
[2021-06-06] MEDS: DUONEB 0.5 MG/3 MG (3 mL) NEB SCH ×4 (08:47→20:59)
[2021-06-06] MEDS: PULMICORT NEB TX 0.5 MG NEB SCH ×2 (08:47→20:59)
[2021-06-06 08:49] LABS: HYPOCHROMASIA SLIGHT
[2021-06-06] MEDS: LR 1,000 ML IV 1,000 ML IV SCH ×2 (09:10→15:20)
[2021-06-06] MEDS: SOLU-Cortef INJ IVP SCH ×4 (09:11→21:08)
[2021-06-06] MEDS: CARDIZEM CD 120 MG 24-HR PO SCH (09:12)
[2021-06-06] MEDS: WELLBUTRIN XL 150 MG (DAILY) PO SCH (09:12)
[2021-06-06] MEDS: K-DUR TAB 20 MEQ PO SCH (09:13)
[2021-06-06] MEDS: PEPCID TAB 20 MG PO SCH (09:14)
[2021-06-06] MEDS: KLONOPIN TAB 0.5 MG PO SCH ×2 (09:14→21:07)
[2021-06-06] MEDS: THIAMINE HCL INJ IVP SCH ×2 (09:14→21:09)
[2021-06-06] MEDS: MILK OF MAGNESIA PO SCH ×2 (09:15→21:07)
[2021-06-06 10:56] VITALS: BMI 35.5
[2021-06-06 14:55] LABS: CREATININE 1.55 mg/dL (0.70-1.30)
[2021-06-06 14:57] LABS: VANCOMYCIN,TROUGH 24.6 ug/mL (15-20)
[2021-06-06] MEDS: VANCOMYCIN IV *PREMIX 1 G/200 ML BAG 1 G/200 ML PIGGYBACK IV SCH (16:15)
[2021-06-06] MEDS ORDERED: ZOLOFT ONE (20:18)
[2021-06-06] MEDS: ZOLOFT PO SCH (21:07)
[2021-06-06] MEDS: COLACE CAP 100 MG PO SCH (21:07)
[2021-06-06] MEDS: NORCO 5/325 MG TAB PO PRN (21:09)
[2021-06-06] MEDS: VANCOMYCIN HCL 500 MG in D5W 100 ML IV 100 ML IV SCH (21:37)
[2021-06-07] MEDS: LR 1,000 ML IV 1,000 ML IV SCH ×3 (01:33→17:55)
[2021-06-07] MEDS: ZOSYN VIAL 2.25 GRAMS 2.25 G in NS 100 ML IV + SPIKE MINIBAG* 100 ML IV SCH ×3 (05:01→22:02)
[2021-06-07] MEDS: NORCO 5/325 MG TAB PO PRN ×2 (05:01→20:50)
[2021-06-07 07:17] LABS: BASOPHILS # (AUTO) 0.1 X10^3/uL (0.0-0.1); BASOPHILS % (AUTO) 0.4 % (0.2-1.0); EOSINOPHILS # (AUTO) 0.3 x10^3/uL (0.0-0.2); EOSINOPHILS % (AUTO) 1.7 % (0.9-2.9); HEMATOCRIT 29.6 % (42.0-54.0); HEMOGLOBIN 9.6 g/dL (13.5-18.0); LYMPHOCYTES # (AUTO) 2.2 X10^3/uL (1.3-2.9); LYMPHOCYTES % (AUTO) 11.7 % (21.0-51.0); MEAN CORPUSCULAR HEMOGLOBIN 27.8 pg (27.0-34.0); MEAN CORPUSCULAR HGB CONC 32.3 g/dL (33.0-35.0); MEAN CORPUSCULAR VOLUME 85.8 fL (80.0-100.0); MEAN PLATELET VOLUME 7.7 fL (7.4-11.0); MONOCYTES % (AUTO) 5.4 % (0.0-13.0); NEUTROPHILS # (AUTO) 15.4 x10^3/uL (2.2-4.8); NEUTROPHILS % (AUTO) 80.8 % (42.0-75.0); RED BLOOD COUNT 3.45 X10^6/uL (4.7-6.0); RED CELL DISTRIBUTION WIDTH 15.7 % (11.6-16.5)
[2021-06-07 07:26] LABS: ALANINE AMINOTRANSFERASE 34 Units/L (12-78); ALKALINE PHOSPHATASE 64 Units/L (46-116); ASPARTATE AMINO TRANSFERASE 24 Units/L (15-37); BLOOD UREA NITROGEN 23 mg/dL (7-18); CALCIUM 7.6 mg/dL (8.5-10.1); CARBON DIOXIDE 18.4 mmol/L (21-32); CHLORIDE 114 mmol/L (98-107); COR CA(FOR HYPOALB) 9.2 mg/dL (8.5-10.1); CREATININE 1.47 mg/dL (0.70-1.30); SODIUM 143 mmol/L (136-145); TOTAL PROTEIN 6.1 g/dL (6.4-8.2); eGFR NON BLACK RACES 49 (>60)
[2021-06-07 07:44] LABS: WHITE BLOOD COUNT 22.2 X10^3/uL (3.6-10.0)
[2021-06-07 07:45] LABS: PLATELET MORPHOLOGY COMMENT NORMAL (NORMAL)
[2021-06-07] MEDS: PULMICORT NEB TX 0.5 MG NEB SCH ×2 (09:15→21:45)
[2021-06-07] MEDS: DUONEB 0.5 MG/3 MG (3 mL) NEB SCH ×2 (09:15→21:45)
[2021-06-07] MEDS: K-DUR TAB 20 MEQ PO SCH (09:34)
[2021-06-07] MEDS: CARDIZEM CD 120 MG 24-HR PO SCH (09:34)
[2021-06-07] MEDS: KLONOPIN TAB 0.5 MG PO SCH ×2 (09:36→20:49)
[2021-06-07] MEDS: MILK OF MAGNESIA PO SCH ×2 (09:36→20:49)
[2021-06-07] MEDS: PEPCID TAB 20 MG PO SCH (09:37)
[2021-06-07] MEDS: SOLU-Cortef INJ IVP SCH ×4 (09:37→20:50)
[2021-06-07] MEDS: THIAMINE HCL INJ IVP SCH ×2 (09:39→20:50)
[2021-06-07] MEDS: WELLBUTRIN XL 150 MG (DAILY) PO SCH (09:40)
[2021-06-07] MEDS: DIFLUCAN 200 MG IV PREMIX* 200 MG/100 ML BAG IV SCH (11:00)
[2021-06-07] MEDS: ALBUMIN HUMAN 25%- 100 ML 100 ML IV SCH (13:03)
[2021-06-07] MEDS: LASIX IVP SCH (13:14)
[2021-06-07] MEDS ORDERED: VANCOMYCIN HCL ONE (19:37)
[2021-06-07] MEDS ORDERED: ZOLOFT ONE (19:38)
[2021-06-07] MEDS: ZOLOFT PO SCH (20:49)
[2021-06-07] MEDS: COLACE CAP 100 MG PO SCH (20:49)
[2021-06-07] MEDS: VANCOMYCIN HCL 500 MG in D5W 100 ML IV 100 ML IV SCH (21:04)
[2021-06-08] MEDS: LR 1,000 ML IV 1,000 ML IV SCH ×3 (01:07→16:58)
[2021-06-08] MEDS: NORCO 5/325 MG TAB PO PRN ×2 (04:46→10:43)
[2021-06-08] MEDS: ZOSYN VIAL 2.25 GRAMS 2.25 G in NS 100 ML IV + SPIKE MINIBAG* 100 ML IV SCH ×3 (05:15→21:50)
[2021-06-08] MEDS: CARDIZEM CD 120 MG 24-HR PO SCH (08:22)
[2021-06-08] MEDS: WELLBUTRIN XL 150 MG (DAILY) PO SCH (08:22)
[2021-06-08] MEDS: DIFLUCAN 200 MG IV PREMIX* 200 MG/100 ML BAG IV SCH (08:22)
[2021-06-08] MEDS: MILK OF MAGNESIA PO SCH ×2 (08:23→21:51)
[2021-06-08] MEDS: KLONOPIN TAB 0.5 MG PO SCH ×2 (08:23→21:52)
[2021-06-08] MEDS: K-DUR TAB 20 MEQ PO SCH (08:23)
[2021-06-08] MEDS: THIAMINE HCL INJ IVP SCH ×2 (08:23→21:52)
[2021-06-08] MEDS: LASIX IVP SCH (08:23)
[2021-06-08] MEDS: PEPCID TAB 20 MG PO SCH (08:23)
[2021-06-08] MEDS: SOLU-Cortef INJ IVP SCH ×4 (08:23→21:53)
[2021-06-08] MEDS: ALBUMIN HUMAN 25%- 100 ML 100 ML IV SCH (09:29)
[2021-06-08] MEDS: DUONEB 0.5 MG/3 MG (3 mL) NEB SCH ×4 (09:29→21:30)
[2021-06-08] MEDS: PULMICORT NEB TX 0.5 MG NEB SCH ×2 (09:30→21:30)
[2021-06-08] MEDS: NIZORAL CREAM TOP SCH (10:43)
[2021-06-08 21:10] LABS: CREATININE 1.35 mg/dL (0.70-1.30); VANCOMYCIN,TROUGH 19.5 ug/mL (15-20)
[2021-06-08] MEDS ORDERED: ZOLOFT ONE (21:44)
[2021-06-08] MEDS: VANCOMYCIN HCL 500 MG in D5W 100 ML IV 100 ML IV SCH (21:51)
[2021-06-08] MEDS: ZOLOFT PO SCH (21:51)
[2021-06-08] MEDS: COLACE CAP 100 MG PO SCH (21:52)
[2021-06-09] MEDS: LR 1,000 ML IV 1,000 ML IV SCH ×3 (04:31→17:27)
[2021-06-09] MEDS: ZOSYN VIAL 2.25 GRAMS 2.25 G in NS 100 ML IV + SPIKE MINIBAG* 100 ML IV SCH ×3 (05:58→21:43)
[2021-06-09 06:08] LABS: BASOPHILS % (AUTO) 0.2 % (0.2-1.0); EOSINOPHILS % (AUTO) 0.1 % (0.9-2.9); HEMOGLOBIN 9.4 g/dL (13.5-18.0); LYMPHOCYTES # (AUTO) 1.2 X10^3/uL (1.3-2.9); LYMPHOCYTES % (AUTO) 10.4 % (21.0-51.0); MEAN CORPUSCULAR HEMOGLOBIN 28.6 pg (27.0-34.0); MEAN CORPUSCULAR HGB CONC 33.5 g/dL (33.0-35.0); MEAN CORPUSCULAR VOLUME 85.4 fL (80.0-100.0); MEAN PLATELET VOLUME 7.3 fL (7.4-11.0); MONOCYTES # (AUTO) 0.6 x10^3/uL (0.3-0.8); MONOCYTES % (AUTO) 5.4 % (0.0-13.0); NEUTROPHILS # (AUTO) 9.6 x10^3/uL (2.2-4.8); NEUTROPHILS % (AUTO) 83.9 % (42.0-75.0); RED BLOOD COUNT 3.28 X10^6/uL (4.7-6.0); RED CELL DISTRIBUTION WIDTH 16.4 % (11.6-16.5); WHITE BLOOD COUNT 11.4 X10^3/uL (3.6-10.0)
[2021-06-09 06:19] LABS: ALANINE AMINOTRANSFERASE 22 Units/L (12-78); ALBUMIN 2.8 g/dL (3.4-5.0); ALKALINE PHOSPHATASE 69 Units/L (46-116); ASPARTATE AMINO TRANSFERASE 16 Units/L (15-37); BLOOD UREA NITROGEN 19 mg/dL (7-18); CALCIUM 7.7 mg/dL (8.5-10.1); CARBON DIOXIDE 21.4 mmol/L (21-32); CHLORIDE 112 mmol/L (98-107); COR CA(FOR HYPOALB) 8.7 mg/dL (8.5-10.1); COR NA(FOR HYPERGLY) 145 mmol/L (136-145); CREATININE 1.42 mg/dL (0.70-1.30); SODIUM 145 mmol/L (136-145); TOTAL PROTEIN 6.6 g/dL (6.4-8.2); eGFR NON BLACK RACES 51 (>60)
[2021-06-09] MEDS: DUONEB 0.5 MG/3 MG (3 mL) NEB SCH ×4 (08:10→20:30)
[2021-06-09] MEDS: PULMICORT NEB TX 0.5 MG NEB SCH ×2 (08:10→20:30)
[2021-06-09] MEDS: LASIX IVP SCH (09:14)
[2021-06-09] MEDS: THIAMINE HCL INJ IVP SCH ×2 (09:15→21:43)
[2021-06-09] MEDS: ALBUMIN HUMAN 25%- 100 ML 100 ML IV SCH (09:18)
[2021-06-09] MEDS: MILK OF MAGNESIA PO SCH ×2 (09:22→21:42)
[2021-06-09] MEDS: CARDIZEM CD 120 MG 24-HR PO SCH (09:23)
[2021-06-09] MEDS: KLONOPIN TAB 0.5 MG PO SCH ×2 (09:23→21:42)
[2021-06-09] MEDS: K-DUR TAB 20 MEQ PO SCH (09:23)
[2021-06-09] MEDS: PEPCID TAB 20 MG PO SCH (09:23)
[2021-06-09] MEDS: WELLBUTRIN XL 150 MG (DAILY) PO SCH (09:23)
[2021-06-09] MEDS ORDERED: KLOR-CON PO PRN (09:26)
[2021-06-09] MEDS ORDERED: MICRO K EXTEN CAP 10 MEQ PO PRN (09:26)
[2021-06-09] MEDS ORDERED: POTASSIUM CHL 40 MEQ/NS 0.45% 500 ML IV PRN (09:26)
[2021-06-09] MEDS ORDERED: K-DUR TAB 20 MEQ PO PRN (09:26)
[2021-06-09] MEDS ORDERED: POTASSIUM CHLORIDE LIQ 20 MEQ UDC PO PRN (09:26)
[2021-06-09] MEDS ORDERED: POTASSIUM CHL 60 MEQ/NS 0.45% 500 ML IV PRN (09:26)
[2021-06-09] MEDS ORDERED: CARDIZEM CD 120 MG 24-HR PO ONE (09:29)
[2021-06-09] MEDS: DIFLUCAN 100 MG IV (MIX by PHARMACY)* 100 MG/50 ML BAG IV SCH (10:23)
[2021-06-09] MEDS ORDERED: CORTEF ONE (11:01)
[2021-06-09] MEDS: CORTEF PO SCH (11:11)
[2021-06-09] MEDS: K-RIDER 10 MEQ/NS 100 ML 10 MEQ/100 ML BAG IV PRN ×2 (12:03→14:40)
[2021-06-09] MEDS ORDERED: ZOLOFT ONE (21:26)
[2021-06-09] MEDS ORDERED: PHARMACY COMMENT IV NR (21:30)
[2021-06-09] MEDS: COLACE CAP 100 MG PO SCH (21:40)
[2021-06-09] MEDS: ZOLOFT PO SCH (21:43)
[2021-06-09] MEDS: VANCOMYCIN HCL 500 MG in D5W 100 ML IV 100 ML IV SCH (21:44)
[2021-06-10] MEDS: LR 1,000 ML IV 1,000 ML IV SCH ×3 (02:11→17:42)
[2021-06-10] MEDS: ZOSYN VIAL 2.25 GRAMS 2.25 G in NS 100 ML IV + SPIKE MINIBAG* 100 ML IV SCH ×3 (05:18→20:59)
[2021-06-10 06:21] LABS: BASOPHILS # (AUTO) 0.1 X10^3/uL (0.0-0.1); BASOPHILS % (AUTO) 0.8 % (0.2-1.0); EOSINOPHILS # (AUTO) 0.1 x10^3/uL (0.0-0.2); EOSINOPHILS % (AUTO) 0.8 % (0.9-2.9); HEMATOCRIT 27.9 % (42.0-54.0); HEMOGLOBIN 9.1 g/dL (13.5-18.0); LYMPHOCYTES # (AUTO) 1.3 X10^3/uL (1.3-2.9); MEAN CORPUSCULAR HEMOGLOBIN 27.8 pg (27.0-34.0); MEAN CORPUSCULAR HGB CONC 32.5 g/dL (33.0-35.0); MEAN CORPUSCULAR VOLUME 85.5 fL (80.0-100.0); MEAN PLATELET VOLUME 7.5 fL (7.4-11.0); MONOCYTES # (AUTO) 1.2 x10^3/uL (0.3-0.8); MONOCYTES % (AUTO) 7.9 % (0.0-13.0); NEUTROPHILS % (AUTO) 81.5 % (42.0-75.0); RED BLOOD COUNT 3.27 X10^6/uL (4.7-6.0); RED CELL DISTRIBUTION WIDTH 17.2 % (11.6-16.5); WHITE BLOOD COUNT 14.7 X10^3/uL (3.6-10.0)
[2021-06-10 07:00] LABS: ALANINE AMINOTRANSFERASE 25 Units/L (12-78); ALBUMIN 2.8 g/dL (3.4-5.0); ALKALINE PHOSPHATASE 74 Units/L (46-116); ASPARTATE AMINO TRANSFERASE 26 Units/L (15-37); BLOOD UREA NITROGEN 16 mg/dL (7-18); CALCIUM 7.3 mg/dL (8.5-10.1); CARBON DIOXIDE 23.4 mmol/L (21-32); COR CA(FOR HYPOALB) 8.3 mg/dL (8.5-10.1); CREATININE 1.29 mg/dL (0.70-1.30); TOTAL PROTEIN 6.1 g/dL (6.4-8.2); eGFR NON BLACK RACES 57 (>60)
[2021-06-10 07:12] LABS: CHLORIDE 116 mmol/L (98-107); SODIUM 152 mmol/L (136-145)
[2021-06-10] MEDS ORDERED: CORTEF ONE ×2 (08:25→11:21)
[2021-06-10] MEDS: DUONEB 0.5 MG/3 MG (3 mL) NEB SCH ×4 (08:51→20:20)
[2021-06-10] MEDS: PULMICORT NEB TX 0.5 MG NEB SCH ×2 (08:52→20:20)
[2021-06-10] MEDS: WELLBUTRIN XL 150 MG (DAILY) PO SCH (09:28)
[2021-06-10] MEDS: LASIX IVP SCH (09:28)
[2021-06-10] MEDS: K-DUR TAB 20 MEQ PO SCH (09:29)
[2021-06-10] MEDS: CARDIZEM CD 120 MG 24-HR PO SCH (09:29)
[2021-06-10] MEDS: CORTEF PO SCH ×2 (09:30→11:22)
[2021-06-10] MEDS: THIAMINE HCL INJ IVP SCH ×2 (09:30→21:01)
[2021-06-10] MEDS: PEPCID TAB 20 MG PO SCH (09:31)
[2021-06-10] MEDS: KLONOPIN TAB 0.5 MG PO SCH ×2 (09:31→21:01)
[2021-06-10] MEDS: MILK OF MAGNESIA PO SCH ×4 (09:32→20:58)
[2021-06-10] MEDS: NIZORAL CREAM TOP SCH (10:15)
[2021-06-10] MEDS: DIFLUCAN 100 MG IV (MIX by PHARMACY)* 100 MG/50 ML BAG IV SCH (10:15)
[2021-06-10] MEDS: ALBUMIN HUMAN 25%- 100 ML 100 ML IV SCH (10:15)
[2021-06-10] MEDS ORDERED: TESSALON PERLES PO ONE (10:22)
[2021-06-10] MEDS ORDERED: LASIX IVP ONE (12:06)
[2021-06-10 16:09] LABS: MAGNESIUM 1.8 mg/dL (1.7-2.9)
[2021-06-10] MEDS ORDERED: ZOLOFT ONE (20:35)
[2021-06-10] MEDS: ZOLOFT PO SCH (21:00)
[2021-06-10] MEDS: NORCO 5/325 MG TAB PO PRN (21:00)
[2021-06-10] MEDS: COLACE CAP 100 MG PO SCH (21:00)
[2021-06-10] MEDS: VANCOMYCIN HCL 500 MG in D5W 100 ML IV 100 ML IV SCH (22:14)
[2021-06-10] MEDS: MAGNESIUM SULFATE 1 GRAM/100 mL PREMIX 1 G/100 ML BAG IV PRN (23:41)
[2021-06-11] MEDS: MAGNESIUM SULFATE 1 GRAM/100 mL PREMIX 1 G/100 ML BAG IV PRN (01:14)
[2021-06-11] MEDS: LR 1,000 ML IV 1,000 ML IV SCH ×3 (01:25→17:43)
[2021-06-11] MEDS: ZOSYN VIAL 2.25 GRAMS 2.25 G in NS 100 ML IV + SPIKE MINIBAG* 100 ML IV SCH (05:20)
[2021-06-11 06:40] LABS: ALANINE AMINOTRANSFERASE 23 Units/L (12-78); ALBUMIN 2.6 g/dL (3.4-5.0); ALKALINE PHOSPHATASE 80 Units/L (46-116); ASPARTATE AMINO TRANSFERASE 15 Units/L (15-37); BLOOD UREA NITROGEN 15 mg/dL (7-18); CALCIUM 7.8 mg/dL (8.5-10.1); CARBON DIOXIDE 27.8 mmol/L (21-32); COR CA(FOR HYPOALB) 8.9 mg/dL (8.5-10.1); CREATININE 1.21 mg/dL (0.70-1.30); TOTAL PROTEIN 6.1 g/dL (6.4-8.2); eGFR NON BLACK RACES > 60 (>60)
[2021-06-11 06:44] LABS: SODIUM 152 mmol/L (136-145)
[2021-06-11 06:45] LABS: CHLORIDE 115 mmol/L (98-107)
[2021-06-11 06:53] LABS: BASOPHILS % (AUTO) 0.2 % (0.2-1.0); EOSINOPHILS # (AUTO) 0.1 x10^3/uL (0.0-0.2); EOSINOPHILS % (AUTO) 0.6 % (0.9-2.9); HEMOGLOBIN 9.7 g/dL (13.5-18.0); LYMPHOCYTES # (AUTO) 1.2 X10^3/uL (1.3-2.9); LYMPHOCYTES % (AUTO) 8.4 % (21.0-51.0); MEAN CORPUSCULAR HEMOGLOBIN 28.8 pg (27.0-34.0); MEAN CORPUSCULAR HGB CONC 33.5 g/dL (33.0-35.0); MEAN PLATELET VOLUME 7.6 fL (7.4-11.0); MONOCYTES # (AUTO) 0.9 x10^3/uL (0.3-0.8); MONOCYTES % (AUTO) 6.4 % (0.0-13.0); NEUTROPHILS % (AUTO) 84.4 % (42.0-75.0); RED BLOOD COUNT 3.37 X10^6/uL (4.7-6.0); RED CELL DISTRIBUTION WIDTH 17.3 % (11.6-16.5); WHITE BLOOD COUNT 14.2 X10^3/uL (3.6-10.0)
[2021-06-11] MEDS: DUONEB 0.5 MG/3 MG (3 mL) NEB SCH ×4 (09:12→20:35)
[2021-06-11] MEDS: PULMICORT NEB TX 0.5 MG NEB SCH ×2 (09:12→20:35)
--- NOTE | 2021-06-11 09:20 | DR.PROGNOT ---
Hospital Progress Notes - Progress Note for Day of: Progress Note Date: 06/11/21 - Chief Complaint Chief Complaint: s/p debridement of sacral and Lt heel ulcers . dressing was changed . sacral ulcer is the same . slow healing .. no necrosis or abscess formation .. Lt heal is with open ulceration , no necrosis or abscess formation .. - Past Medical Family Social History Past Med/Fam/Surg Hx: No changes since H&P Allergies: Allergies codeine Allergy (Verified 05/30/21 16:23) morphine Allergy (Verified 05/30/21 16:23) - Review Of Systems ROS: No change since H&P - Vital Signs Vital Signs: Temperature 98.1 F Pulse Rate [Left Radial] 92 Pulse Rate 66 Respiratory Rate 18 Blood Pressure [Right Arm] 140/76 Blood Pressure [Left Arm] 131/77 Blood Pressure 129/54 O2 Sat by Pulse Oximetry 97 - Physical Exam Skin: Other (same sacral and Lt heel ulcers as before ..no necrosis or abscess formation ..minimal cellulitis ) Mood Description: Calm Speech Pattern: Appropriate, Unclear - Laboratory and Diagnostics Result Diagrams: 06/11/21 05:31 06/11/21 05:31 Labs: 06/03/21 10:10 Foot - Left Wound Gram Stain - Final 06/03/21 10:10 Foot - Left Wound Culture - Final Staphylococcus Hominis 06/03/21 10:10 Sacral Wound Gram Stain - Final 06/03/21 10:10 Sacral Wound Culture - Final Proteus Mirabilis Methicillin Resis Staph Aureus 05/30/21 16:53 Blood Blood Culture - Final 05/30/21 16:50 Blood Blood Culture - Final 05/30/21 17:18 Urine,Clean Catch Urine Culture - Final Proteus Mirabilis 05/30/21 17:00 Penis Wound Gram Stain - Final 05/30/21 17:00 Penis Wound Culture - Final Proteus Mirabilis Laboratory WBC 14.2 X10^3/uL (3.6-10.0) H 06/11/21 05:31 RBC 3.37 X10^6/uL (4.7-6.0) L 06/11/21 05:31 Hgb 9.7 g/dL (13.5-18.0) L 06/11/21 05:31 Hct 29.0 % (42.0-54.0) L 06/11/21 05:31 MCV 86.0 fL (80.0-100.0) 06/11/21 05:31 MCH 28.8 pg (27.0-34.0) 06/11/21 05:31 MCHC 33.5 g/dL (33.0-35.0) 06/11/21 05:31 RDW 17.3 % (11.6-16.5) H 06/11/21 05:31 Plt Count 450 X10^3/uL (150.0-450.0) 06/11/21 05:31 Plt Count Comment Increased (ADEQUATE) 06/07/21 06:50 MPV 7.6 fL (7.4-11.0) 06/11/21 05:31 Neut % (Auto) 84.4 % (42.0-75.0) H 06/11/21 05:31 Lymph % (Auto) 8.4 % (21.0-51.0) L 06/11/21 05:31 [place] % (Auto) 6.4 % (0.0-13.0) 06/11/21 05:31 Eos % (Auto) 0.6 % (0.9-2.9) L 06/11/21 05:31 Baso % (Auto) 0.2 % (0.2-1.0) 06/11/21 05:31 Neut # (Auto) 12.0 x10^3/uL (2.2-4.8) H 06/11/21 05:31 Lymph # (Auto) 1.2 X10^3/uL (1.3-2.9) L 06/11/21 05:31 [place] # (Auto) 0.9 x10^3/uL (0.3-0.8) H 06/11/21 05:31 Eos # (Auto) 0.1 x10^3/uL (0.0-0.2) 06/11/21 05:31 Baso # (Auto) 0.0 X10^3/uL (0.0-0.1) 06/11/21 05:31 Absolute Nucleated RBC 0.1 /100WBC 06/11/21 05:31 Total Counted 100 06/04/21 09:02 Neutrophils % (Manual) 85 % (39-76) H 06/04/21 09:02 Lymphocytes % (Manual) 11 % (13-43) L 06/04/21 09:02 Monocytes % (Manual) 3 % (4-9) L 06/04/21 09:02 Eosinophils % (Manual) 1 % (0-6) 06/04/21 09:02 Plt Morphology Comment Normal (NORMAL) 06/07/21 06:50 RBC Morphology Normal (NORMAL) 06/07/21 06:50 Hypochromasia Slight A 06/06/21 08:13 Sodium 152 mmol/L (136-145) H* 06/11/21 05:31 Corrected Sodium TNP 06/11/21 05:31 Potassium 3.4 mmol/L (3.5-5.1) L 06/11/21 05:31 Chloride 115 mmol/L (98-107) H* 06/11/21 05:31 Carbon Dioxide 27.8 mmol/L (21-32) 06/11/21 05:31 BUN 15 mg/dL (7-18) 06/11/21 05:31 Creatinine 1.21 mg/dL (0.70-1.30) 06/11/21 05:31 Est GFR (MDRD) Af Amer > 60 (>60) 06/11/21 05:31 Est GFR (MDRD) Non-Af > 60 (>60) 06/11/21 05:31 Glucose 106 mg/dL (65-99) H 06/11/21 05:31 Calcium 7.8 mg/dL (8.5-10.1) L 06/11/21 05:31 Corrected Calcium 8.9 mg/dL (8.5-10.1) 06/11/21 05:31 Magnesium 1.8 mg/dL (1.7-2.9) 06/10/21 15:54 Total Bilirubin 0.40 mg/dL (0.2-1.0) 06/11/21 05:31 AST 15 Units/L (15-37) 06/11/21 05:31 ALT 23 Units/L (12-78) 06/11/21 05:31 Alkaline Phosphatase 80 Units/L (46-116) 06/11/21 05:31 C-Reactive Protein 23.40 mg/L (0-3.0) H 06/10/21 05:55 Total Protein 6.1 g/dL (6.4-8.2) L 06/11/21 05:31 Albumin 2.6 g/dL (3.4-5.0) L 06/11/21 05:31 Globulin 3.5 g/dL (2.5-4.5) 06/11/21 05:31 Albumin/Globulin Ratio 0.7 Ratio (1.1-2.1) L 06/11/21 05:31 Specimen Type Clean catch urine 05/30/21 17:18 Urine Color Green (YELLOW) 05/30/21 17:18 Urine Appearance Cloudy (CLEAR) 05/30/21 17:18 Urine pH 8.0 (5.0 - 8.0) 05/30/21 17:18 Ur Specific O[place]Brien 1.015 (1.000-1.030) 05/30/21 17:18 Urine Protein 4+ (NEGATIVE) 05/30/21 17:18 Urine Glucose (UA) Negative (NEGATIVE) 05/30/21 17:18 Urine Ketones 1+ (NEGATIVE) 05/30/21 17:18 Urine Occult Blood 4+ (NEGATIVE) 05/30/21 17:18 Urine Nitrite Negative (NEGATIVE) 05/30/21 17:18 Urine Bilirubin Negative (NEGATIVE) 05/30/21 17:18 Urine Urobilinogen Normal (NORMAL) 05/30/21 17:18 Ur Leukocyte Esterase 3+ (NEGATIVE) 05/30/21 17:18 Urine RBC 30-50 /HPF (0-3) A 05/30/21 17:18 Urine WBC Tntc /HPF (0-5) A 05/30/21 17:18 Ur Squamous Epith Cells Negative /HPF (NEGATIVE) 05/30/21 17:18 Triple Phos Crystals Few /HPF (NEGATIVE) 05/30/21 17:18 Urine Bacteria 3+ /HPF (NEGATIVE) 05/30/21 17:18 Ur Culture Indicated? Yes/culture set up 05/30/21 17:18 Vancomycin Trough 19.5 ug/mL (15-20) 06/08/21 20:45 SARS-CoV-2 (PCR) Negative (NEGATIVE) 05/30/21 17:00 Influenza Type A (PCR) Negative (NEGATIVE) 05/30/21 17:00 Influenza Type B (PCR) Negative (NEGATIVE) 05/30/21 17:00 RSV (PCR) Negative (NEGATIVE) 05/30/21 17:00 Tissue Pathology To follow 06/03/21 10:09 - Assessment and Plan 1: same sacral and Lt heel ulcers . S/P excisional debridement .. minimal improvement ..no need for debriment now . confinement to bed .. same local care and ABT . UTI . to follow as out Pt - Problem Patient Problems: Patient Problems Cystitis (Acute) N30.90 Acute on chronic kidney failure (Acute) N17.9, N18.9 E. coli urinary tract infection (Acute) N39.0, B96.20 Sepsis (Acute) A41.9
[2021-06-11] MEDS ORDERED: CORTEF ONE ×2 (09:32→17:32)
[2021-06-11] MEDS: NS 1/2 + KCL 20 MEQ/L 1,000 ML IV SCH ×2 (09:43→18:04)
[2021-06-11] MEDS: WELLBUTRIN XL 150 MG (DAILY) PO SCH (09:43)
[2021-06-11] MEDS: CARDIZEM CD 120 MG 24-HR PO SCH (09:44)
[2021-06-11] MEDS: K-DUR TAB 20 MEQ PO SCH (09:44)
[2021-06-11] MEDS: VSL#3 PO SCH (09:45)
[2021-06-11] MEDS: LASIX IVP SCH (09:46)
[2021-06-11] MEDS: KLONOPIN TAB 0.5 MG PO SCH ×2 (09:46→21:23)
[2021-06-11] MEDS: CORTEF PO SCH ×2 (09:46→17:42)
[2021-06-11] MEDS: PEPCID TAB 20 MG PO SCH (09:47)
[2021-06-11] MEDS: DIFLUCAN 100 MG IV (MIX by PHARMACY)* 100 MG/50 ML BAG IV SCH (09:51)
[2021-06-11] MEDS: MILK OF MAGNESIA PO SCH ×2 (10:12→21:22)
[2021-06-11] MEDS: ALBUMIN HUMAN 25%- 100 ML 100 ML IV SCH (11:39)
[2021-06-11] MEDS ORDERED: ZOLOFT ONE (20:37)
[2021-06-11] MEDS: ZOLOFT PO SCH (21:22)
[2021-06-11] MEDS: COLACE CAP 100 MG PO SCH (21:22)
[2021-06-11] MEDS: VANCOMYCIN HCL 500 MG in D5W 100 ML IV 100 ML IV SCH (21:28)
[2021-06-11] MEDS: ZOSYN IV SCH (22:19)
[2021-06-11] MEDS: D5W IV SCH (22:19)
[2021-06-12] MEDS: NS 1/2 + KCL 20 MEQ/L 1,000 ML IV SCH ×2 (01:09→10:16)
[2021-06-12] MEDS: LR 1,000 ML IV 1,000 ML IV SCH ×2 (01:11→10:16)
[2021-06-12] MEDS: ZOSYN IV SCH (05:29)
[2021-06-12] MEDS: D5W IV SCH (05:29)
[2021-06-12 05:59] LABS: BASOPHILS # (AUTO) 0.1 X10^3/uL (0.0-0.1); BASOPHILS % (AUTO) 0.5 % (0.2-1.0); EOSINOPHILS # (AUTO) 0.1 x10^3/uL (0.0-0.2); EOSINOPHILS % (AUTO) 1.1 % (0.9-2.9); LYMPHOCYTES % (AUTO) 8.5 % (21.0-51.0); MEAN CORPUSCULAR HEMOGLOBIN 28.3 pg (27.0-34.0); MEAN CORPUSCULAR HGB CONC 33.2 g/dL (33.0-35.0); MEAN CORPUSCULAR VOLUME 85.3 fL (80.0-100.0); MEAN PLATELET VOLUME 7.5 fL (7.4-11.0); MONOCYTES # (AUTO) 0.7 x10^3/uL (0.3-0.8); MONOCYTES % (AUTO) 6.3 % (0.0-13.0); NEUTROPHILS # (AUTO) 9.5 x10^3/uL (2.2-4.8); NEUTROPHILS % (AUTO) 83.6 % (42.0-75.0); RED BLOOD COUNT 3.16 X10^6/uL (4.7-6.0); RED CELL DISTRIBUTION WIDTH 17.3 % (11.6-16.5); WHITE BLOOD COUNT 11.4 X10^3/uL (3.6-10.0)
[2021-06-12 06:26] LABS: ALANINE AMINOTRANSFERASE 17 Units/L (12-78); ALBUMIN 2.7 g/dL (3.4-5.0); ALKALINE PHOSPHATASE 74 Units/L (46-116); ASPARTATE AMINO TRANSFERASE 13 Units/L (15-37); BLOOD UREA NITROGEN 13 mg/dL (7-18); CALCIUM 7.5 mg/dL (8.5-10.1); CARBON DIOXIDE 25.4 mmol/L (21-32); CHLORIDE 112 mmol/L (98-107); COR CA(FOR HYPOALB) 8.5 mg/dL (8.5-10.1); CREATININE 1.04 mg/dL (0.70-1.30); SODIUM 148 mmol/L (136-145); TOTAL PROTEIN 5.9 g/dL (6.4-8.2); eGFR NON BLACK RACES > 60 (>60)
[2021-06-12] MEDS ORDERED: CORTEF ONE ×2 (07:33→12:04)
[2021-06-12] MEDS: K-DUR TAB 20 MEQ PO SCH (09:33)
[2021-06-12] MEDS: CARDIZEM CD 120 MG 24-HR PO SCH (09:33)
[2021-06-12] MEDS: VSL#3 PO SCH (09:33)
[2021-06-12] MEDS: WELLBUTRIN XL 150 MG (DAILY) PO SCH (09:33)
[2021-06-12] MEDS: KLONOPIN TAB 0.5 MG PO SCH (09:34)
[2021-06-12] MEDS: MILK OF MAGNESIA PO SCH (09:34)
[2021-06-12] MEDS: CORTEF PO SCH ×2 (09:34→12:02)
[2021-06-12] MEDS: PEPCID TAB 20 MG PO SCH (09:34)
[2021-06-12] MEDS: DUONEB 0.5 MG/3 MG (3 mL) NEB SCH (09:40)
[2021-06-12] MEDS: PULMICORT NEB TX 0.5 MG NEB SCH (09:40)
[2021-06-12] MEDS: ALBUMIN HUMAN 25%- 100 ML 100 ML IV SCH (10:15)
[2021-06-12] MEDS: NIZORAL CREAM TOP SCH (10:16)
[2021-06-12] MEDS: DIFLUCAN 100 MG IV (MIX by PHARMACY)* 100 MG/50 ML BAG IV SCH (11:00)
[2021-06-12] MEDS: LASIX IVP SCH (12:02)
[2021-06-12 12:20] VITALS: BP 136/92
== END 2021-06-12 13:50 | DRG 871 ==
LOC: ER 16:21 → MED/SURG 17:43
PROVIDERS: ADMIT Internal Medicine; ATTEND Obstetrics & Gynecology Obstetrics